=== PATIENT | male | born 1950 | race Caucasian/White ===

== ENCOUNTER → 2016-06-09 | Outpatient (CLI) | payer BC ==
[~2016-06-09] MED LIST: APPLE PECTIN PO; ASPI325T45 PO; COQ10 PO; FISHOIL PO; GRAPE SEED PO; HAWTHORNE PO; HYDR-5688 PO; METF850T PO; METO50TA7 PO; MULT-506 PO; POMEGRANATE PO; SIMV40TA2 PO; VITAMIN C PO
[2016-06-09 10:03] LABS: CHOLESTEROL/HDL RATIO 5.2; ESTIMATED AVERAGE GLUCOSE 140 mg/dl; HA1C FLAG Normal (Normal); PROSTATE SPECIFIC ANTIGEN 0.652 ng/ml (0.000-4.000)
[2016-06-09 10:17] LABS: RATIO 32.4 mcg/mg (0-30.0)
== END | disposition home or self-care (01) ==
LOC: C.LAB 08:28
PROVIDERS: ATTEND Internal Medicine
DX: E78.00 Pure hypercholesterolemia, unspecified (principal); E11.9 Type 2 diabetes mellitus without complications; Z12.5 Encounter for screening for malignant neoplasm of prostate

== ENCOUNTER → 2016-06-11 | Day surgery (SDC) | payer BC ==
[2016-06-03 12:53] VITALS: Ht 193 cm; Wt 122.7 kg
[2016-06-09 09:39] LABS: BASO % 0.5 %; BASO ABS # 0.03 K/uL (0-0.2); COMPLETE YES; EOS % 2.7 %; HEMATOCRIT 39.1 % (42-52); IG% 0.2 %; LYMPH % 32.4 %; LYMPH ABS # 1.95 K/uL (1.2-3.4); MEAN CELL VOLUME 87.1 fL (80-100); MEAN CORPUSCULAR HEMOGLOBIN 29.8 pg (25-34); MEAN CORPUSCULAR HGB CONC 34.3 g/dl (32-36); MEAN PLATELET VOLUME 10.8 fL (7.4-10.4); MONO % 9.2 %; PLATELET COUNT 197 K/uL (130-400); RED BLOOD COUNT 4.49 M/uL (4.7-6.1); WHITE BLOOD COUNT 6.01 K/uL (4.8-10.8)
[2016-06-09 09:51] LABS: BUN/CREATININE RATIO 22.9 (10-20); CREATININE 1.2 mg/dl (0.60-1.40); POTASSIUM 3.7 mmol/L (3.5-5.1)
[~2016-06-11] VITALS: Ht 193 cm; Wt 122.7 kg
[~2016-06-11] MED LIST changes: +ATROPINE SULFATE 0.1 MG/ML 5ML SYR IV PRN; +CEFAZOLIN 3000 MG/65 ML D5W IV SCH; +EpHEDrine SULFATE INJ 50 MG/ML AMP IV PRN; +FENTANYL CITRATE INJ 50 MCG/1 ML 2 ML VIAL IV PRN; +FENTANYL CITRATE INJ 50 MCG/1 ML 2 ML VIAL ONE; +LACTATED RINGER'S 1000ML 1,000 ML IV SCH; +LIDOCAINE HCL 2% 2 ML VIAL (20MG/ML) ONE; +LIDOCAINE HCL 2% LOCAL 20 ML VIAL ONE; +MIDAZOLAM HCL 1 MG/ML 2ML VIAL ONE; +ONDANSETRON INJ 2 MG/ML 2 ML VIAL IV PRN; +ONDANSETRON INJ 2 MG/ML 2 ML VIAL ONE; +OXYCODONE/ACETAMINOPHEN 5-325 TAB PO PRN; +PROPOFOL IV EMULSION 10 MG/ML 20 ML VIAL IV ONE; +SODIUM CHLORIDE 0.9% 1000ML 1,000 ML IV SCH
--- NOTE | 2016-06-11 07:34 | History & Physical Bridge - [place] ---
H&P Re-Evaluation Bridge Note: I have examined the patient, reviewed the History & Physical and in the interval since the performance of the History & Physical I have noted the following changes of clinical significance: No changes noted
[2016-06-11 09:31] VITALS: TEMP 36.6
--- NOTE | 2016-06-11 09:39 | [facility] Post Operative Brief Note ---
Immediate Operative Summary Operative Date Jun 11, 2016. Pre-Operative Diagnosis Left Long Finger Trigger Digit Post-Operative Diagnosis Same Procedure(s) Performed Left Long Trigger Finger Release Surgeon Dr Resendiz Quarry Plug And Feather Driller Surgeon(s) None Estimated Blood Loss Trace Findings as above Specimens None Complication(s) None Disposition Recovery Room / PACU
--- NOTE | 2016-06-11 09:39 | Discharge Instructions-SurgCtr ---
Discharge Instructions Date of Service Jun 11, 2016. Visit Reason for Visit: Left Long Trigger Finger Discharge Discharge Diagnosis / Problem: SAME ABOVE Discharge Goals Goal(s): Decrease discomfort, Improve function Medications Stopped Medications Name(s): gluphage stopped 2 days Aspirin held 2 days Restart Stopped Medication(s): MAY RESTART 06/11/2016 Activity Recommendations Activity Limitations: as noted below Lifting Limitations: gradually increase as tolerated Exercise/Sports Limitations: gradually increase as tolerated Driving or Machine Use: resume 1 day after discharge Anesthesia . Post Anesthesia Instructions: If you have had General Anesthesia or IV Sedation: * Do not drive today. * Resume driving when surgeon permits. * Do not make important decisions or sign legal documents today. * Call surgeon for: 1. Temperature elevations greater than 101 degrees F. 2. Uncontrollable pain. 3. Excessive bleeding. 4. Persistent nausea and vomiting. 5. Medication intolerance (nausea, vomiting or rash). * For nausea and vomiting use only clear liquids such as: tea, soda, bouillon until nausea subsides, then gradually increase diet as tolerated. * If you have any concerns or questions, call your surgeon's office. If physician is unavailable and it is an emergency, call 911 or go to the nearest emergency room. . Instructions / Follow-Up Instructions / Follow-Up MEDICATIONS: * Resume previous medications unless instructed otherwise by your surgeon. * Always take pain medication on a full stomach or with food to avoid upset stomach. * Do not drink alcohol or drive while taking narcotics. * Ibuprofen or Tylenol may be taken if narcotic not needed. SPECIAL CARE INSTRUCTIONS: __ None _X_ Keep extremity elevated and iced x 48 hours; apply ice 20-30 minutes 8-10 times/day. May remove at night. __ Sling __24 hrs/day __ Remove at night __ Shoulder Immobilizer __ 24 hrs/day __ Remove at night _X_ Dressing __ Maintain until seen in office, may shower with plastic over site _X_ Remove dressings in 5 DAYS. MAY SHOWER SOONER IF COVERED WITH PLASTIC BAG __ Cover incisions with band-aids after showering __ Do not remove steri-strips Call physician if chills or temperature rises above 102 degrees or pain unrelieved by prescribed pain medications at . . Diet Recommendations Home Diet: no limitations Fluid Restriction: None Procedures Procedures Performed: Left Long Trigger Finger Release Pending Studies Studies pending at discharge: no Work Instructions Return To Work: after follow-up (OR WHEN PAIN IS TOLERATED ) Lifting Limitations: INCREASE TOLERATED Medical Emergencies . Who to Call and When: Medical Emergencies: If at any time you feel your situation is an emergency, please call 911 immediately. . Non-Emergent Contact Non-Emergency issues call your: Primary Care Provider Call Non-Emergent contact if: you have a fever, temperature is above 101.5 . . "Provider Documentation" section prepared by Cyrus Perdomo.
--- NOTE | 2016-06-11 09:44 | OPERATIVE REPORT ---
DATE OF OPERATION: 06/11/2016 CHIEF COMPLAINT: Trigger finger of the left middle finger. POSTOPERATIVE DIAGNOSIS: Same. PROCEDURE: Open trigger finger release of the left middle finger. SURGEON: Dr. Joey Resendiz. VENDING MACHINE REFILLER: None. ANESTHESIA: Local with sedation. COMPLICATION: None. CONDITION: Stable to PACU. INDICATIONS: Son is a pleasant 65-year-old male who presented to my office with triggering of his left middle finger. After failing conservative treatment, he elected to undergo open trigger finger release. On 06/11/2016, he arrived at [facility] for the above procedure. He was seen in the preoperative holding area and the operative extremity was identified and signed. He was given a preoperative antibiotic, taken back to the operating room, laid on the table in supine position and given basic sedation. The left hand was prepped and draped in sterile fashion. Timeout was done. The patient and operative extremity was properly identified. A longitudinal incision was made directly over the A1 shirley. Dissection was taken down through the fascia and the shirley was released with a knife and tenotomy scissors. Care was taken to ensure complete proximal and distal resection. The wound was then irrigated and closed with 4-0 nylon suture. He was then placed in a soft dressing and taken to the postanesthesia care unit in stable condition. He tolerated the procedure well. I attest to the content of the Intraoperative Record and any orders documented therein. Any exceptio ns are noted below.
--- NOTE | 2016-06-11 09:57 | Anesthesia Progress Nt - [facility] ---
Anesthesia Post Op Note Date & Time Jun 11, 2016 at 09:57 Vital Signs Pain Intensity: 0 Vital Signs Past 12 Hours Date Time Temp Pulse Resp B/P Pulse Ox O2 Delivery O2 Flow Rate FiO2 06/11/16 09:31 36.6 65 16 162/79 96 Room Air 06/11/16 07:47 36.7 62 16 162/78 97 Room Air Notes Mental Status: alert / awake / arousable, participated in evaluation Pt Amnestic to Procedure: Yes Nausea / Vomiting: adequately controlled Pain: adequately controlled Airway Patency, RR, SpO2: stable & adequate BP & HR: stable & adequate Hydration State: stable & adequate Anesthetic Complications: no major complications apparent
[2016-06-11 10:15] VITALS: BP 188/94; PULSE 78; O2SAT 98
== END | disposition home or self-care (01) ==
LOC: X.SURG 07:16
PROVIDERS: ATTEND Orthopaedic Surgery
DX: M65.332 Trigger finger, left middle finger (principal); M79.642 Pain in left hand; I51.9 Heart disease, unspecified; I10 Essential (primary) hypertension; R73.03 Prediabetes

== ENCOUNTER 2025-02-15 21:47 | Inpatient (IN) ==
[2025-02-15 22:08] LABS: Hematocrit (blood only) 34.2 % (42.0-52.0); Hemoglobin 11.7 g/dL (14.0-18.0); Immature Granulocytes # (auto) 0.03 K/uL (0.01-0.20); Immature Granulocytes % (auto) 0.4 %; Mean Corpuscular Hemoglobin 30.6 pg (25.0-34.0); Mean Corpuscular Volume 89.5 fL (80.0-100.0); Platelet Count 203 K/uL (130-400); RDW Standard Deviation 46.6 fL (36.4-46.3); Red Blood Count 3.82 M/uL (4.70-6.10); White Blood Count 8.49 K/ul (4.8-10.8)
[2025-02-15 22:27] LABS: Alanine Aminotransferase 16 U/L (7-52); Albumin Globulin Ratio 1.2 (0.9-2); Albumin Level 4.2 gm/dl (3.4-5.0); Alkaline Phosphatase 76 U/L (34-104); Anion Gap 13 (3-11); Bilirubin,Total 0.9 mg/dl (0.2-1.0); Blood Urea Nitrogen 27 mg/dl (6-23); Calcium 9.7 mg/dl (8.6-10.3); Carbon Dioxide 19 mmol/L (21-32); Chloride 106 mmol/L (98-107); Globulin 3.4 gm/dl (2.5-4.0); Glucose 209 mg/dl (70-99(Fasting)); Lipase 23 U/L (11-82); Potassium 4.3 mmol/L (3.5-5.1); Sodium 138 mmol/L (136-145); Total Protein 7.6 gm/dl (6.0-8.3)
[2025-02-15 22:30] LABS: Appearance Urine Clear (Clear); Bacteria Urine Automated None Seen (None Seen); Cast Urine Automated >20 /lpf (0-2); Glucose Urine UA Negative (Negative); RBC Urine Automated 0-2 /hpf (0-2); WBC Urine Automated 0-5 /hpf (0-5)
[2025-02-15] MEDS: OPTIRAY 320 125ml IV ONE (22:45)
[2025-02-15] MEDS: SODIUM CHLORIDE 0.9% 1,000 ML IV ONE (22:47)
[2025-02-15] MEDS: PIPERACILLIN/TAZOBACTAM 4.5 GM/100 ML BAG IV ONE (23:25)
--- NOTE | 2025-02-15 23:28 | Emergency Department Note ---
History of Present Illness General Chief complaint: Abdominal Pain Stated complaint: SEVERE ABD PAIN History of Present Illness Maximum Pain Intensity: 8 This 74-year-old male with a history of diabetes and prostate cancer not undergoing current treatment presents ER complaint of severe lower abdominal pain with chills. Pain started at 7 PM and is gotten much worse. Patient is shivering in the room and appears in moderate amount of pain. Patient also complains of difficulty catching his breath secondary to the pain. Patient denies back pain, injury to the area, cough, congestion, urinary symptoms. Home Medications Medication Instructions Recorded Confirmed Type ascorbic acid (vitamin C) 500 mg 500 mg PO QAM 02/21/18 02/16/25 History tablet (Vitamin C) coQ10 (ubiquinol) 100 mg capsule 100 mg PO QAM 02/21/18 02/16/25 History multivitamin 1 tab PO QAM 02/21/18 02/16/25 History amoxicillin 500 mg capsule 2,000 mg (4 x 500 mg) PO UD #4 caps 02/12/20 02/16/25 Rx nitroglycerin 400 mcg/spray 1 spray sublingual Q5M PRN chest 01/02/22 02/16/25 Rx translingual pain #4.9 grams aspirin 81 mg capsule 162 mg PO DAILY 11/02/23 02/16/25 History celecoxib 200 mg capsule (Celebrex) 200 mg PO DAILY PRN pain #30 caps 06/20/24 02/16/25 Rx vitamin E (dl, acetate) 180 mg 180 mg PO DAILY 07/24/24 02/16/25 History (400 unit) capsule rosuvastatin 10 mg tablet 10 mg PO DAILY #90 tabs 08/21/24 02/16/25 Rx amlodipine 5 mg tablet 5 mg PO DAILY #90 tabs 08/22/24 02/16/25 Rx olmesartan 40 mg tablet 40 mg PO DAILY #90 tabs 09/22/24 02/16/25 Rx fenofibrate 54 mg tablet 54 mg PO QAM 10/18/24 02/16/25 History ferrous sulfate 325 mg (65 mg 325 mg PO DAILY 10/18/24 02/16/25 History iron) tablet metformin 850 mg tablet 850 mg PO QPM #90 tabs 11/15/24 02/16/25 Rx metoprolol tartrate 50 mg tablet 50 mg PO BID #180 tabs 11/15/24 02/16/25 Rx hydrochlorothiazide 12.5 mg tablet 12.5 mg PO DAILY PRN as directed 11/29/24 02/16/25 History Allergies Allergy/AdvReac Type Severity Reaction Status Date / Time pollen extracts Allergy Unknown ALLERGY Verified 12/26/24 15:44 SYMPTOMS No Known Drug Allergies Allergy Verified 12/26/24 15:44 Past Med/Surg History Problem List (Updated 02/16/25 @ 01:41 by Sandy Richardson PA-C) Acute appendicitis (Acute) Anemia Medication adverse effect Adrenal nodule Lung nodules Prostate cancer (Chronic 04/24/24) Anemia, mild 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, 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 Lumbar spinal stenosis Myalgia History of colon polyps Obesity (BMI 30.0-34.9) Skin change Chronic constipation Acid reflux (Acute) CAD (coronary artery disease) (Acute) F/U DR GIGI PERKINS Diabetes mellitus (Acute) Dyslipidemia (Acute) Generalized osteoarthritis of multiple sites (Acute) Hypertension (Acute) Legg-Perthes disease (Acute) Lower back pain (Acute) Sleep apnea (Acute) USES NO DEVICE Tubular adenoma (Acute) Medical History Elevated PSA Encounter for pre-operative examination GERD (gastroesophageal reflux disease) Allergic rhinitis History of colon polyps Osteoarthritis Borderline diabetes mellitus Hypertension Hyperlipidemia Surgical History History of tonsillectomy and adenoidectomy S/P trigger finger release R/L HAND History of total hip arthroplasty LEFT History of colonoscopy X 2 History of cardiac cath 10 years ago. [facility]. cp. --> [facility]. follows verónica/ dr. perkins. History of coronary artery bypass graft 3 vessels. 10 years ago. [facility]. follows verónica/ dr. perkins Family History Mother Family history of diabetes mellitus Myocardial infarction Brother Family history of diabetes mellitus Denies family history of Ovarian cancer Prostate cancer Breast cancer Colorectal cancer Social History Smoking Status: Never smoker Second Hand Exposure: No; Do You Dip or Chew Tobacco: No; Hx Alcohol Use: Yes Alcohol type: wine Alcohol Intake Frequency: Monthly or Less Hx Substance Use: No Preferred Language: Serbian Communication Ability: Effective Visual Impairment: Diminished Hearing Ability: Hard of Hearing Customer Service Agent Required: No Beliefs That Will Affect Care: None marital status: Current Living Situation: Spouse current occupational status: employed 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 Feels Safe at Home: Yes Diet: regular during the past year weight has: remained stable Dental Care, Regularly: Yes Physical Activity Frequency Comment: yardwork and very active Seatbelt Use: always Sunscreen Use: No Assistive Devices: Glasses Review of Systems A total of 10 systems reviewed and were otherwise negative Physical Exam Vital Signs Vital Signs - 24 hr 02/15/25 21:48 02/15/25 21:50 02/15/25 22:08 Temperature 36.9 C Temperature Source Oral Pulse Rate 96 H 108 H Pulse Rate from SpO2 Sensor Respiratory Rate 18 Respiratory Effort / Characteristics Non-Labored Spontaneous Respiratory Depth Normal Respiratory Pattern Regular Blood Pressure 146/76 H Blood Pressure Mean 99 Pulse Oximetry 97 Oxygen Delivery Method Room Air Room Air Sepsis Recent Fever Within 48 Hours No Sepsis New/Unexplained Change in Mental Status N/A Sepsis Action Taken by Nursing No Action Required 02/15/25 22:08 02/15/25 22:08 02/15/25 22:08 Temperature Temperature Source Pulse Rate Pulse Rate from SpO2 Sensor Respiratory Rate Respiratory Effort / Characteristics Respiratory Depth Respiratory Pattern Blood Pressure 199/96 H 199/96 H 199/96 H Blood Pressure Mean 147 147 147 Pulse Oximetry Oxygen Delivery Method Sepsis Recent Fever Within 48 Hours Sepsis New/Unexplained Change in Mental Status Sepsis Action Taken by Nursing 02/15/25 22:08 02/15/25 22:09 02/15/25 22:12 Temperature Temperature Source Pulse Rate 109 H 116 H Pulse Rate from SpO2 Sensor Respiratory Rate 31 H 43 H Respiratory Effort / Characteristics Respiratory Depth Respiratory Pattern Blood Pressure 199/96 H Blood Pressure Mean 147 Pulse Oximetry Oxygen Delivery Method Sepsis Recent Fever Within 48 Hours Sepsis New/Unexplained Change in Mental Status Sepsis Action Taken by Nursing 02/15/25 22:21 02/15/25 22:45 02/15/25 22:46 Temperature Temperature Source Pulse Rate 128 H 108 H Pulse Rate from SpO2 Sensor 127 H 110 H Respiratory Rate 35 H 35 H Respiratory Effort / Characteristics Respiratory Depth Respiratory Pattern Blood Pressure 194/83 H Blood Pressure Mean 168 Pulse Oximetry 100 96 Oxygen Delivery Method Sepsis Recent Fever Within 48 Hours Sepsis New/Unexplained Change in Mental Status Sepsis Action Taken by Nursing 02/15/25 22:46 02/15/25 22:46 02/15/25 22:46 Temperature Temperature Source Pulse Rate Pulse Rate from SpO2 Sensor Respiratory Rate Respiratory Effort / Characteristics Respiratory Depth Respiratory Pattern Blood Pressure 194/83 H 194/83 H 194/83 H Blood Pressure Mean 168 168 168 Pulse Oximetry Oxygen Delivery Method Sepsis Recent Fever Within 48 Hours Sepsis New/Unexplained Change in Mental Status Sepsis Action Taken by Nursing 02/15/25 22:46 02/15/25 22:48 02/15/25 22:51 Temperature Temperature Source Pulse Rate 98 H 109 H Pulse Rate from SpO2 Sensor 109 H 108 H Respiratory Rate 36 H 33 H Respiratory Effort / Characteristics Respiratory Depth Respiratory Pattern Blood Pressure 194/83 H Blood Pressure Mean 168 Pulse Oximetry 97 96 Oxygen Delivery Method Sepsis Recent Fever Within 48 Hours Sepsis New/Unexplained Change in Mental Status Sepsis Action Taken by Nursing 02/15/25 23:00 02/15/25 23:00 02/15/25 23:00 Temperature Temperature Source Pulse Rate Pulse Rate from SpO2 Sensor Respiratory Rate Respiratory Effort / Characteristics Respiratory Depth Respiratory Pattern Blood Pressure 198/91 H 198/91 H 198/91 H Blood Pressure Mean 166 166 166 Pulse Oximetry Oxygen Delivery Method Sepsis Recent Fever Within 48 Hours Sepsis New/Unexplained Change in Mental Status Sepsis Action Taken by Nursing 02/15/25 23:00 02/15/25 23:00 02/15/25 23:00 Temperature Temperature Source Pulse Rate 110 H Pulse Rate from SpO2 Sensor 110 H Respiratory Rate 25 H Respiratory Effort / Characteristics Respiratory Depth Respiratory Pattern Blood Pressure 198/91 H 198/91 H Blood Pressure Mean 166 166 Pulse Oximetry 96 Oxygen Delivery Method Sepsis Recent Fever Within 48 Hours Sepsis New/Unexplained Change in Mental Status Sepsis Action Taken by Nursing 02/15/25 23:12 02/15/25 23:24 02/15/25 23:30 Temperature Temperature Source Pulse Rate 107 H 104 H 110 H Pulse Rate from SpO2 Sensor 108 H Respiratory Rate 12 24 Respiratory Effort / Characteristics Respiratory Depth Respiratory Pattern Blood Pressure Blood Pressure Mean Pulse Oximetry 95 Oxygen Delivery Method Sepsis Recent Fever Within 48 Hours Sepsis New/Unexplained Change in Mental Status Sepsis Action Taken by Nursing 02/15/25 23:42 Temperature Temperature Source Pulse Rate 97 H Pulse Rate from SpO2 Sensor Respiratory Rate 28 H Respiratory Effort / Characteristics Respiratory Depth Respiratory Pattern Blood Pressure Blood Pressure Mean Pulse Oximetry Oxygen Delivery Method Sepsis Recent Fever Within 48 Hours Sepsis New/Unexplained Change in Mental Status Sepsis Action Taken by Nursing VITALS: Vitals are noted on the nurse's note and reviewed by myself. Vital signs reviewed. GENERAL: White male, in acute distress, shivering SKIN: The skin was without rashes, erythema, edema, or bruising. There is no tenting of the skin. Capillary reflex less than 2 seconds. HEAD: Normocephalic atraumatic. EARS: External auditory canals clear EYES: Pupils equal round and reactive to light and accommodation. Conjunctivae without injection, sclerae without icterus. Extraocular movements intact. NOSE: Patent, no discharge. MOUTH: Mucous membranes moist. Pharynx without erythema or exudate. Uvula midline. Airway patent. Tongue does not deviate. NECK: Supple without nuchal rigidity. No lymphadenopathy. No thyromegaly. Cervical spine is nontender. No JVD. HEART: Regular rate and rhythm LUNGS: Clear to auscultation bilaterally without wheezes, rales or rhonchi. No retractions or accessory muscle use. ABDOMEN: Positive bowel sounds x 4. Normal tympanic percussion. Soft, exquisitely tender to palpation with rebound tenderness, without masses or organomegaly. Wren sign negative. No CVA tenderness MUSCULOSKELETAL: No muscle atrophy, erythema, or edema noted. NEURO: Patient was alert and oriented to person place and time. Normal sensation to light and sharp touch. No focal neurological deficits. Course Administered Medications Hydromorphone HCl (Hydromorphone Inj 0.5 Mg/0.5 Ml Syr) 0.5 mg IV Q3H PRN PRN Reason: Severe Pain (Scale 7, 8, 9,10) Stop: 03/02/25 00:44 Last Admin: 02/16/25 01:10 Dose: 0.5 mg Documented By: LENNY Co-signed By: CRISELDA Magnesium Sulfate/Dextrose (Magnesium Sulfate / D5w) 1 gm in 100 mls @ 50 mls/hr IV ONE STA Stop: 02/16/25 02:41 Last Admin: 02/16/25 01:11 Dose: 50 mls/hr Documented By: LENNY Co-signed By: CRISELDA Lactated Ringer's (Lr) 1,000 mls @ 80 mls/hr IV .[id number] JOE Stop: 02/19/25 00:44 Last Admin: 02/16/25 01:11 Dose: 80 mls/hr Documented By: LENNY Co-signed By: CRISELDA Discontinued Medications Piperacillin Sod/Tazobactam Sod (Zosyn) 4.5 gm in 100 mls @ 200 mls/hr IV NOW ONE; Protocol Stop: 02/15/25 22:47 Last Infusion: 02/16/25 00:00 Dose: Infused Documented By: Admin: 02/15/25 23:25 Dose: 200 mls/hr Documented By: CRISELDA Sodium Chloride (Nss) 1,000 mls @ 999 mls/hr IV .Q1H1M ONE Stop: 02/15/25 23:18 Last Infusion: 02/16/25 01:35 Dose: Infused Documented By: Admin: 02/15/25 22:47 Dose: 999 mls/hr Documented By: CRISELDA Acetaminophen (Ofirmev) 1,000 mg in 100 mls @ 400 mls/hr IV NOW STA Stop: 02/15/25 23:38 Last Infusion: 02/16/25 00:00 Dose: Infused Documented By: Admin: 02/15/25 23:29 Dose: 400 mls/hr Documented By: CRISELDA Pantoprazole Sodium (Protonix) 40 mg in 10 mls @ 5 mls/min IV NOW STA Stop: 02/16/25 00:53 Last Admin: 02/16/25 01:10 Dose: 5 mls/min Documented By: LENNY Co-signed By: CRISELDA Ioversol (Optiray 320 125ml) 115 ml IV ONCE ONE Stop: 02/15/25 22:45 Last Admin: 02/15/25 22:45 Dose: 115 ml Documented By: SHAGGY Miscellaneous (Patient's Height &/Or Weight Needed) 1 each N/A Q2H STA Stop: 02/16/25 00:54 Last Admin: 02/16/25 01:19 Dose: Not Given Documented By: CRISELDA Morphine Sulfate (Morphine Sulfate 4 Mg/Ml 1 Ml Carp\Vial) 4 mg IV NOW STA Stop: 02/15/25 23:25 Last Admin: 02/15/25 23:29 Dose: 4 mg Documented By: CRISELDA Medical Decision Making Medical Records Attestation: I reviewed the patient's medical records. Home Medications Current Medication List: was personally reviewed by me Laboratory Data Attestation: I reviewed the patient's lab results. 02/15/25 21:55 02/15/25 21:55 Lab Results 02/15/25 02/15/25 02/15/25 Range/Units 21:55 22:00 22:24 WBC 8.49 (4.8-10.8) K/ul RBC 3.82 L (4.70-6.10) M/uL Hgb 11.7 L (14.0-18.0) g/dL POC Hgb 11.9 L (14.0-18.0) g/dl Hct 34.2 L (42.0-52.0) % POC Hct 35 L (42-52) % MCV 89.5 (80.0-100.0) fL MCH 30.6 (25.0-34.0) pg MCHC 34.2 (32.0-36.0) g/dL RDW Std Deviation 46.6 H (36.4-46.3) fL RDW Coeff of Elsy 14.3 (11.5-14.5) % Plt Count 203 (130-400) K/uL MPV 10.2 (9.4-12.4) fL Immature Gran % (Auto) 0.4 % Neut % (Auto) 88.1 % Lymph % (Auto) 4.2 % Dent % (Auto) 6.8 % Eos % (Auto) 0.4 % Baso % (Auto) 0.1 % Neut # (Auto) 7.48 H (1.40-6.50) K/uL Lymph # (Auto) 0.36 L (1.20-3.40) K/uL Dent # (Auto) 0.58 (0.11-0.59) K/uL Eos # (Auto) 0.03 (0.00-0.50) K/uL Baso # (Auto) 0.01 (0.00-0.20) K/uL Immature Gran # (Auto) 0.03 (0.01-0.20) K/uL POC Sodium 140 (135-144) mmol/L Sodium 138 (136-145) mmol/L POC Potassium 4.5 (3.3-5.0) mmol/L Potassium 4.3 (3.5-5.1) mmol/L POC Chloride 109 (101-112) mmol/L Chloride 106 (98-107) mmol/L Carbon Dioxide 19 L (21-32) mmol/L POC Total CO2 17 L (24-31) mmol/L Anion Gap 13 H (3-11) POC Anion Gap 20.0 (16-25) mmol/L POC BUN 27 H (7-18) mg/dl BUN 27 H (6-23) mg/dl Creatinine 1.45 H (0.6-1.4) mg/dl POC Creatinine 1.7 H (0.6-1.3) mg/dl Est Cr Clr Drug Dosing Not Reportable eGFR 49.94 BUN/Creatinine Ratio 18.6 (10-20) Glucose 209 H (70-99(Fasting)) mg/dl POC Glucose (other) 229 H (70-99) mg/dl Lactate (0.4-2.0) mmol/L Calcium 9.7 (8.6-10.3) mg/dl POC Ioniz Calcium Flavio 1.22 (1.12-1.32) mmol/l Magnesium 1.8 (1.7-2.4) mg/dl Total Bilirubin 0.9 (0.2-1.0) mg/dl AST 16 (13-39) U/L ALT 16 (7-52) U/L Alkaline Phosphatase 76 (34-104) U/L Total Protein 7.6 (6.0-8.3) gm/dl Albumin 4.2 (3.4-5.0) gm/dl Globulin 3.4 (2.5-4.0) gm/dl Albumin/Globulin Ratio 1.2 (0.9-2) Lipase 23 (11-82) U/L Urine Color Dark Yellow Urine Appearance Clear (Clear) Urine pH 5.0 (4.5-7.5) Ur Specific [place] 1.026 (1.000-1.030) Urine Protein 2+ H (Negative) Urine Glucose (UA) Negative (Negative) Urine Ketones 1+ H (Negative) Urine Blood Negative (Negative) Urine Nitrite Negative (Negative) Urine Bilirubin 1+ H (Negative) Urine Urobilinogen Negative (Negative) Ur Leukocyte Esterase Trace H (Negative) Urine WBC (Auto) 0-5 (0-5) /hpf Urine RBC (Auto) 0-2 (0-2) /hpf U Hyaline Cast (Auto) >20 H (0-2) /lpf U Epithel Cells (Auto) 3-5 H (0-2) /hpf Urine Bacteria (Auto) None Seen (None Seen) Hyaline Casts Present A (None Presnt) /lpf Urine Mucus Present A (None Prsent) Urine Comment 02/15/25 Range/Units 23:05 WBC (4.8-10.8) K/ul RBC (4.70-6.10) M/uL Hgb (14.0-18.0) g/dL POC Hgb (14.0-18.0) g/dl Hct (42.0-52.0) % POC Hct (42-52) % MCV (80.0-100.0) fL MCH (25.0-34.0) pg MCHC (32.0-36.0) g/dL RDW Std Deviation (36.4-46.3) fL RDW Coeff of Elsy (11.5-14.5) % Plt Count (130-400) K/uL MPV (9.4-12.4) fL Immature Gran % (Auto) % Neut % (Auto) % Lymph % (Auto) % Dent % (Auto) % Eos % (Auto) % Baso % (Auto) % Neut # (Auto) (1.40-6.50) K/uL Lymph # (Auto) (1.20-3.40) K/uL Dent # (Auto) (0.11-0.59) K/uL Eos # (Auto) (0.00-0.50) K/uL Baso # (Auto) (0.00-0.20) K/uL Immature Gran # (Auto) (0.01-0.20) K/uL POC Sodium (135-144) mmol/L Sodium (136-145) mmol/L POC Potassium (3.3-5.0) mmol/L Potassium (3.5-5.1) mmol/L POC Chloride (101-112) mmol/L Chloride (98-107) mmol/L Carbon Dioxide (21-32) mmol/L POC Total CO2 (24-31) mmol/L Anion Gap (3-11) POC Anion Gap (16-25) mmol/L POC BUN (7-18) mg/dl BUN (6-23) mg/dl Creatinine (0.6-1.4) mg/dl POC Creatinine (0.6-1.3) mg/dl Est Cr Clr Drug Dosing eGFR BUN/Creatinine Ratio (10-20) Glucose (70-99(Fasting)) mg/dl POC Glucose (other) (70-99) mg/dl Lactate 4.4 H* (0.4-2.0) mmol/L Calcium (8.6-10.3) mg/dl POC Ioniz Calcium Flavio (1.12-1.32) mmol/l Magnesium (1.7-2.4) mg/dl Total Bilirubin (0.2-1.0) mg/dl AST (13-39) U/L ALT (7-52) U/L Alkaline Phosphatase (34-104) U/L Total Protein (6.0-8.3) gm/dl Albumin (3.4-5.0) gm/dl Globulin (2.5-4.0) gm/dl Albumin/Globulin Ratio (0.9-2) Lipase (11-82) U/L Urine Color Urine Appearance (Clear) Urine pH (4.5-7.5) Ur Specific [place] (1.000-1.030) Urine Protein (Negative) Urine Glucose (UA) (Negative) Urine Ketones (Negative) Urine Blood (Negative) Urine Nitrite (Negative) Urine Bilirubin (Negative) Urine Urobilinogen (Negative) Ur Leukocyte Esterase (Negative) Urine WBC (Auto) (0-5) /hpf Urine RBC (Auto) (0-2) /hpf U Hyaline Cast (Auto) (0-2) /lpf U Epithel Cells (Auto) (0-2) /hpf Urine Bacteria (Auto) (None Seen) Hyaline Casts (None Presnt) /lpf Urine Mucus (None Prsent) Urine Comment Imaging Data Attestation: I personally reviewed and interpreted this imaging study as follows: Radiologist's Impression: Chest CTA 02/15/25 22:18 Exam(s): CTA CHEST EXAM: CT Angiography Chest With Intravenous Contrast CLINICAL HISTORY: Reason for exam: PE. TECHNIQUE: Axial computed tomographic angiography images of the chest with intravenous contrast. CTDI is 22.8 mGy and DLP is 1636.59 mGy-cm. Automated exposure control was utilized for the study. A dose lowering technique was utilized adhering to the principles of ALARA. MIP reconstructed images were created and reviewed. IV contrast is given with moderate pulmonary arterial enhancement, and severe breathing motion artifact, significantly limiting evaluation for small or nonocclusive disease. COMPARISON: None. FINDINGS: Pulmonary arteries: No definite pulmonary embolism. Limited evaluation due to technique. Aorta: No aneurysm. Lungs: Grossly clear. No consolidation. Pleural space: No significant effusion. No pneumothorax. Heart: Moderate cardiomegaly. No significant pericardial effusion. No evidence of elevated right heart pressures. Bones/joints: No acute fracture. Soft tissues: Small hiatal hernia. Bilateral adrenal nodules, see separately dictated CTA abdomen pelvis. Lymph nodes: No enlarged lymph nodes. IMPRESSION: 1. No definite pulmonary embolism. Limited evaluation due to technique. 2. Lungs are grossly clear. Electronically signed by: Salima Valentin M.D. 02/15/25 23:43 PM Abdomen/Pelvis CTA 02/15/25 22:30 CR Exam(s): CTA ABDOMEN + PELVIS With Contrast IV Amt: 115 ML OPTIRAY 320 EXAM: CT Angiography Abdomen and Pelvis With Intravenous Contrast CLINICAL HISTORY: Reason for exam: severe pain. TECHNIQUE: Axial computed tomographic angiography images of the abdomen and pelvis with intravenous contrast. CTDI is 22.8 mGy and DLP is 1636.59 mGy-cm. Automated exposure control was utilized for the study. A dose lowering technique was utilized adhering to the principles of ALARA. MIP reconstructed images were created and reviewed. There is metal artifact from left hip prosthesis, and mild to moderate artifact from breathing/motion. CONTRAST: Patient received 115 ML OPTIRAY 320 of IV contrast COMPARISON: None. FINDINGS: VASCULATURE: Aorta: Moderate atherosclerosis. No aneurysm or dissection. Celiac trunk and mesenteric arteries: No significant stenosis or occlusion. Renal arteries: No significant stenosis or occlusion. Iliac arteries: Severe atherosclerosis. No significant stenosis or occlusion of the common/external iliac vessels. ABDOMEN/PELVIS: Lower chest: Small hiatal hernia. Liver: Unremarkable. Gallbladder and bile ducts: No ductal dilation. Pancreas: No ductal dilation. Spleen: Unremarkable, for technique. Adrenals: 2.8 cm right adrenal and 14 mm left adrenal nodules. Kidneys and ureters: Moderate to severe bilateral cortical atrophy. No hydronephrosis. Stomach and bowel: No obstruction. Moderate inflammation right lower quadrant, surrounding an enlarged appendix that measures 11 mm, with appendicoliths Intraperitoneal space: No abscess, free air or fluid. Bones/joints: Left hip prosthesis. No acute fracture. Soft tissues: Bilateral fat containing inguinal hernias. Lymph nodes: No enlarged lymph nodes. Bladder: Unremarkable. Reproductive: Unremarkable as visualized. IMPRESSION: 1. Acute, uncomplicated appendicitis. 2. No aortic aneurysm, dissection, branch vessel occlusion or acute end organ ischemia. Communications: Call Doctor Appendicitis Electronically signed by: Salima Valentin M.D. 02/15/25 23:41 PM [facility] Narrative Prior records/ancillary studies reviewed. Triage Nursing notes reviewed. Additional history obtained from family. The patient's history was concerning for abdominal pain. Differential diagnosis: Etiologies such as perforation, dissection, appendicitis, diverticulitis, PUD, biliary pathology, UTI, pancreatitis, obstruction, mesenteric ischemia, aortic pathology, infections, inflammatory bowel disease, renal colic, as well as others were entertained. Physical examination findings: As above. ER treatment provided: An order was placed for continuous cardiac monitoring. The monitor shows a rate of 60-100 with a sinus rhythm per my Independent interpretation. Limited Point of Care FAST Ultrasound performed by me: Indication: Rule out perforation/dissection Findings: Limited cardiac ultrasonography via subxiphoid and parasternal long view showed cardiac wall motion activity, no pericardial fluid, no tamponade. Limited chest ultrasound revealed bilateral lung sliding. Limited abdominal ultrasound revealed no free fluid within Chapman's pouch, splenorenal space, or the pouch of Marshal. Impression: Negative FAST exam. IV fluids, Zosyn, morphine and Tylenol ordered Septic workup was initiated On reassessment the patient felt better. Diagnostics interpreted by me: ECG: Ordered for dyspnea EKG: Poor baseline, occasional PVC, no acute ST-T wave changes, rate of 103. Patient sinus tachycardia independently interpreted by myself The labs Independently Interpreted by myself revealed no worrisome leukocytosis, negative urine, mild anemia Elevated lactic. Imaging studies: Imaging was reviewed and read by radiology Consultation: A consultation was placed with the hospitalist. The case was discussed and diagnostics were reviewed. The patient was evaluated in the ER for further treatment. Consultation was placed with surgery, Dr. Caballero, via [facility] text and recommends medical admission and antibiotics. Consultation was placed with radiology at stat read. The CT was reviewed and she believes it is an acute appendicitis. Exam and history seem consistent with acute appendicitis. Patient started on broad-spectrum antibiotics as he does have an acute abdomen on exam and was febrile.Patient developed a fever while in the ER and was given Tylenol. Septic workup was already initiated. Radiology was consulted and the CAT scans were reviewed with the radiologist. She believes it is an acute appendicitis. No perforation. Surgery was consulted and recommends medical admission. Medicine was consulted and will admit the patient. Patient is agreeable treatment plan of admission. Patient was reassessed multiple times. He was medicated as above. My attending was made aware of him. By the evaluation outlined above emergent etiologies such as diverticulitis, PUD, biliary pathology, UTI, pancreatitis, obstruction, mesenteric ischemia, aortic pathology, inflammatory bowel disease, renal colic, as well as others were deemed relatively unlikely. The pt informed about the findings as listed above. All questions were answered and pleased with the treatment. The chart was completed utilizing [employer] Speech voice recognition software. Grammatical errors, random word insertions, pronoun errors, and incomplete sentences are an occassional consequence of this system due to software limitations, ambient noise, and hardware issues. Any formal questions or concerns about the content, text, or information contained within the body of this dictation should be directly addressed to the physician bilingual legal assistant for clarification. Impression & Plan Acute appendicitis Discharge Plan Visit Data Chief Complaint: Abdominal Pain Stated Complaint: SEVERE ABD PAIN ED Provider: Zackary Pineda ED Midlevel Provider: Sandy Richardson Discharge Problem: Acute appendicitis Patient Disposition: Admitted As Inpatient Condition: Fair Forms Stand Alone Forms: My [facility] Prescriptions Prescriptions: No Action hydrochlorothiazide 12.5 mg tablet 12.5 mg PO DAILY PRN (Reason: as directed) vitamin E (dl, acetate) 180 mg (400 unit) capsule 180 mg PO DAILY ferrous sulfate 325 mg (65 mg iron) tablet 325 mg PO DAILY fenofibrate 54 mg tablet 54 mg PO QAM amoxicillin 500 mg capsule 2,000 mg PO UD Qty: 4 2RF Rx Instructions: TAKE 4 TABLETS 1 HOUR BEFORE DENTAL APPOINTMENT nitroglycerin 400 mcg/spray spray,non-aerosol 1 spray sublingual Q5M PRN (Reason: chest pain) Qty: 4.9 3RF Rx Instructions: do not exceed 3 doses per episode celecoxib [Celebrex] 200 mg capsule 200 mg PO DAILY PRN (Reason: pain) Qty: 30 2RF rosuvastatin 10 mg tablet 10 mg PO DAILY Qty: 90 3RF metoprolol tartrate 50 mg tablet 50 mg PO BID Qty: 180 3RF metformin 850 mg tablet 850 mg PO QPM Qty: 90 3RF aspirin 81 mg capsule 162 mg PO DAILY amlodipine 5 mg tablet 5 mg PO DAILY Qty: 90 3RF olmesartan 40 mg tablet 40 mg PO DAILY Qty: 90 3RF multivitamin Tablet 1 tab PO QAM ascorbic acid (vitamin C) [Vitamin C] 500 mg Tablet 500 mg PO QAM coQ10 (ubiquinol) 100 mg Capsule 100 mg PO QAM Referrals Referrals: Varghese Ley MD [Primary Care Provider] - Discharge Problem: Acute appendicitis Qualifiers: Acute appendicitis type: unspecified acute appendicitis type Qualified Code(s): K35.80 - Unspecified acute appendicitis
[2025-02-15] MEDS: ACETAMINOPHEN 1,000 MG/100 ML VIAL IV STA (23:29)
[2025-02-15] MEDS: MoRPHine SULFATE 4 MG/ML 1 ML CARP\\VIAL IV STA (23:29)
--- NOTE | 2025-02-15 23:42 | CT Scan Report ---
Exam(s): CTA ABDOMEN + PELVIS With Contrast IV Amt: 115 ML OPTIRAY 320 EXAM: CT Angiography Abdomen and Pelvis With Intravenous Contrast CLINICAL HISTORY: Reason for exam: severe pain. TECHNIQUE: Axial computed tomographic angiography images of the abdomen and pelvis with intravenous contrast. CTDI is 22.8 mGy and DLP is 1636.59 mGy-cm. Automated exposure control was utilized for the study. A dose lowering technique was utilized adhering to the principles of ALARA. MIP reconstructed images were created and reviewed. There is metal artifact from left hip prosthesis, and mild to moderate artifact from breathing/motion. CONTRAST: Patient received 115 ML OPTIRAY 320 of IV contrast COMPARISON: None. FINDINGS: VASCULATURE: Aorta: Moderate atherosclerosis. No aneurysm or dissection. Celiac trunk and mesenteric arteries: No significant stenosis or occlusion. Renal arteries: No significant stenosis or occlusion. Iliac arteries: Severe atherosclerosis. No significant stenosis or occlusion of the common/external iliac vessels. ABDOMEN/PELVIS: Lower chest: Small hiatal hernia. Liver: Unremarkable. Gallbladder and bile ducts: No ductal dilation. Pancreas: No ductal dilation. Spleen: Unremarkable, for technique. Adrenals: 2.8 cm right adrenal and 14 mm left adrenal nodules. Kidneys and ureters: Moderate to severe bilateral cortical atrophy. No hydronephrosis. Stomach and bowel: No obstruction. Moderate inflammation right lower quadrant, surrounding an enlarged appendix that measures 11 mm, with appendicoliths Intraperitoneal space: No abscess, free air or fluid. Bones/joints: Left hip prosthesis. No acute fracture. Soft tissues: Bilateral fat containing inguinal hernias. Lymph nodes: No enlarged lymph nodes. Bladder: Unremarkable. Reproductive: Unremarkable as visualized. IMPRESSION: 1. Acute, uncomplicated appendicitis. 2. No aortic aneurysm, dissection, branch vessel occlusion or acute end organ ischemia. Communications: Call Doctor Appendicitis Electronically signed by: Salima Valentin M.D. 02/15/25 23:41 PM
--- NOTE | 2025-02-15 23:44 | CT Scan Report ---
Exam(s): CTA CHEST EXAM: CT Angiography Chest With Intravenous Contrast CLINICAL HISTORY: Reason for exam: PE. TECHNIQUE: Axial computed tomographic angiography images of the chest with intravenous contrast. CTDI is 22.8 mGy and DLP is 1636.59 mGy-cm. Automated exposure control was utilized for the study. A dose lowering technique was utilized adhering to the principles of ALARA. MIP reconstructed images were created and reviewed. IV contrast is given with moderate pulmonary arterial enhancement, and severe breathing motion artifact, significantly limiting evaluation for small or nonocclusive disease. COMPARISON: None. FINDINGS: Pulmonary arteries: No definite pulmonary embolism. Limited evaluation due to technique. Aorta: No aneurysm. Lungs: Grossly clear. No consolidation. Pleural space: No significant effusion. No pneumothorax. Heart: Moderate cardiomegaly. No significant pericardial effusion. No evidence of elevated right heart pressures. Bones/joints: No acute fracture. Soft tissues: Small hiatal hernia. Bilateral adrenal nodules, see separately dictated CTA abdomen pelvis. Lymph nodes: No enlarged lymph nodes. IMPRESSION: 1. No definite pulmonary embolism. Limited evaluation due to technique. 2. Lungs are grossly clear. Electronically signed by: Salima Valentin M.D. 02/15/25 23:43 PM
--- NOTE | 2025-02-16 00:12 | Emergency Department Note ---
ED Visit Note The patient was seen and examined with Dylan. I performed a substantive portion of all aspects of the medical decision making and agree with the h istory, physical and findings. Please see the note for disposition and details. . .
[2025-02-16 00:36] LABS: Magnesium 1.8 mg/dl (1.7-2.4)
[2025-02-16] MEDS ORDERED: NALOXONE HCL 0.4 MG/1 ML VIAL/CARP IV PRN (00:45)
[2025-02-16] MEDS ORDERED: METOPROLOL TARTRATE 1 MG/ML VIAL IV PRN (00:54)
--- NOTE | 2025-02-16 00:55 | History & Physical Report ---
Date of Service February 16, 2025 Assessment & Plan (1) Acute appendicitis: (2) Acute kidney injury: (3) Asymptomatic PVCs: Plan The patient is a 74-year-old male past medical history including prostate cancer, mild anemia, L DDD/spinal stenosis with radiculopathy, obesity, CAD, casper betes mellitus, dyslipidemia, hypertension, sleep apnea, and generalized osteoarthritis of multiple sites. He presents to the emergency department with complaint of development of severe right lower quadrant pain, chills, that began around 7 PM this evening. He reports he was difficult to take a deep breath secondary to intensity of the pain. He denies any recent injury, recent travels. Workup in the emergency department included laboratories significant for elevated creatinine 1.45, magnesium 1.8, glucose 209. CT scan of abdomen pelvis was consistent with acute appendicitis. Patient received the following from the ED: Zosyn 4.5 g IV, normal saline 1 L bolus, morphine 4 mg IV, and Tylenol 1 g IV. Patient had continued pain and nausea, he was also seen by surgery Dr. Caballero in the emergency department, with plans to take the patient to the OR after admission by the medicine service. Acute appendicitis- N.p.o. Lactate 4.4, with follow-up pending per protocol Zosyn 4.5 g IV every 8 hours Zofran 4 mg IV every 6 hours as needed LR at 80 mL/h Acetaminophen 1 g IV every 8 hours as needed for mild pain or fever Dilaudid 0.25 mg IV every 3 hours as needed for moderate pain Dilaudid 0.5 mg IV every 3 hours as needed for severe pain Narcan IV per protocol as needed Pantoprazole 40 mg IV now and 9 AM Consult general surgery, who has seen the patient in the ED, and will take the patient to the OR emergently. Acute kidney injury- Creatinine 1.45, with base 1.25- Likely secondary to decreased oral intake and fluid losses Status post 1 L normal saline bolus in the ED Admit on LR at 80 mL/h CBC with differential, chemistry profile, magnesium, PT/INR/PTT in the a.m. Hypertension/PVCs/intermittent ventricular trigeminy- The patient will be admitted to telemetry for serial cardiac enzymes, serial EKG's, cardiac rhythm monitoring Patient was asymptomatic with the PVCs and trigeminy Potassium 4.3 Magnesium 1.8, he received 1 g magnesium sulfate IV Lopressor 5 mg IV every 4 hours as needed for systolic blood pressure greater than 150 Diabetes mellitus- Hold metformin Glucose 209 on admission Placed on Accu-Chek with NovoLog SSI Check hemoglobin A1c Hyperlipidemia- Hold rosuvastatin and fenofibrate Check a fasting lipid profile in the a.m. History of Present Illness Primary Care Provider: Varghese Ley MD The patient is a 74-year-old male past medical history including prostate cancer, mild anemia, L DDD/spinal stenosis with radiculopathy, obesity, CAD, diabetes mellitus, dyslipidemia, hypertension, sleep apnea, and generalized osteoarthritis of multiple sites. He presents to the emergency department with complaint of development of severe right lower quadrant pain, chills, that began around 7 PM this evening. He reports he was difficult to take a deep breath secondary to intensity of the pain. He denies any recent injury, recent travels. Workup in the emergency department included laboratories significant for elevated creatinine 1.45, magnesium 1.8, glucose 209. CT scan of abdomen pelvis was consistent with acute appendicitis. Patient received the following from the ED: Zosyn 4.5 g IV, normal saline 1 L bolus, morphine 4 mg IV, and Tylenol 1 g IV. Patient had continued pain and nausea, he was also seen by surgery Dr. Caballero in the emergency department, with plans to take the patient to the OR after admission by the medicine service. Allergies Allergy/AdvReac Type Severity Reaction Status Date / Time pollen extracts Allergy Unknown ALLERGY Verified 12/26/24 15:44 SYMPTOMS No Known Drug Allergies Allergy Verified 12/26/24 15:44 Home Medications Medication Instructions Recorded Confirmed Type ascorbic acid (vitamin C) 500 mg 500 mg PO QAM 02/21/18 02/16/25 History tablet (Vitamin C) coQ10 (ubiquinol) 100 mg capsule 100 mg PO QAM 02/21/18 02/16/25 History multivitamin 1 tab PO QAM 02/21/18 02/16/25 History amoxicillin 500 mg capsule 2,000 mg (4 x 500 mg) PO UD #4 caps 02/12/20 02/16/25 Rx nitroglycerin 400 mcg/spray 1 spray sublingual Q5M PRN chest 01/02/22 02/16/25 Rx translingual pain #4.9 grams aspirin 81 mg capsule 162 mg PO DAILY 11/02/23 02/16/25 History celecoxib 200 mg capsule (Celebrex) 200 mg PO DAILY PRN pain #30 caps 06/20/24 02/16/25 Rx vitamin E (dl, acetate) 180 mg 180 mg PO DAILY 07/24/24 02/16/25 History (400 unit) capsule rosuvastatin 10 mg tablet 10 mg PO DAILY #90 tabs 08/21/24 02/16/25 Rx amlodipine 5 mg tablet 5 mg PO DAILY #90 tabs 08/22/24 02/16/25 Rx olmesartan 40 mg tablet 40 mg PO DAILY #90 tabs 09/22/24 02/16/25 Rx fenofibrate 54 mg tablet 54 mg PO QAM 10/18/24 02/16/25 History ferrous sulfate 325 mg (65 mg 325 mg PO DAILY 10/18/24 02/16/25 History iron) tablet metformin 850 mg tablet 850 mg PO QPM #90 tabs 11/15/24 02/16/25 Rx metoprolol tartrate 50 mg tablet 50 mg PO BID #180 tabs 11/15/24 02/16/25 Rx hydrochlorothiazide 12.5 mg tablet 12.5 mg PO DAILY PRN as directed 11/29/24 02/16/25 History Past Med/Surg History Problem List (Updated 02/16/25 @ 04:21 by Chet Ramirez MD) Asymptomatic PVCs Acute kidney injury Acute appendicitis (Acute) Anemia Medication adverse effect Adrenal nodule Lung nodules Prostate cancer (Chronic 04/24/24) Anemia, mild 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, 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 Lumbar spinal stenosis Myalgia History of colon polyps Obesity (BMI 30.0-34.9) Skin change Chronic constipation Acid reflux (Acute) CAD (coronary artery disease) (Acute) F/U DR GIGI PERKINS Diabetes mellitus (Acute) Dyslipidemia (Acute) Generalized osteoarthritis of multiple sites (Acute) Hypertension (Acute) Legg-Perthes disease (Acute) Lower back pain (Acute) Sleep apnea (Acute) USES NO DEVICE Tubular adenoma (Acute) Medical History Elevated PSA Encounter for pre-operative examination GERD (gastroesophageal reflux disease) Allergic rhinitis History of colon polyps Osteoarthritis Borderline diabetes mellitus Hypertension Hyperlipidemia Surgical History History of tonsillectomy and adenoidectomy S/P trigger finger release R/L HAND History of total hip arthroplasty LEFT History of colonoscopy X 2 History of cardiac cath 10 years ago. [facility]. cp. --> [facility]. follows [facility]/ dr. perkins. History of coronary artery bypass graft 3 vessels. 10 years ago. [facility] [place]. follows [facility]/ dr. perkins Family History Mother Family history of diabetes mellitus Myocardial infarction Brother Family history of diabetes mellitus Denies family history of Ovarian cancer Prostate cancer Breast cancer Colorectal cancer Social History Smoking Status: Never smoker Second Hand Exposure: No; Do You Dip or Chew Tobacco: No; Hx Alcohol Use: Yes Alcohol type: wine Alcohol Intake Frequency: Monthly or Less Hx Substance Use: No Preferred Language: Namibian Communication Ability: Effective Visual Impairment: Diminished Hearing Ability: Hard of Hearing Electronic Tech Required: No Beliefs That Will Affect Care: None marital status: Current Living Situation: Spouse current occupational status: employed 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 Feels Safe at Home: Yes Diet: regular during the past year weight has: remained stable Dental Care, Regularly: Yes Physical Activity Frequency Comment: yardwork and very active Seatbelt Use: always Sunscreen Use: No Assistive Devices: Glasses Review of Systems Review of Systems: The patient denies chest pain, palpitations, cough, lower extremity swelling, sore throat,chills, sweats, blood in urine or stool, dysuria, urinary frequency or urgency, lightheadedness, dizziness, headache, memory loss, loss of consciousness, rash, abnormal bruising or bleeding, imbalance, focal weakness, numbness or tingling in arms or legs, generalized arthralgias or myalgias, back or neck pain, or night sweats. The review of systems is otherwise negative other than for that already noted above, and at least 10 systems have been reviewed. Physical Exam Physical Exam: The patient is awake, alert and oriented 3, well developed and well nourished, normocephalic and atraumatic, lying in bed and in no acute distress. HEENT--PERRL, EOMI, mucous membranes and oropharynx dry. Neck--supple. No JVD. No bruits. Thyroid normal, trachea midline, no adenopathy. Heart--normal S1 and S2. No murmurs, rubs or gallops. Lungs--clear bilaterally, no respiratory distress, no accessory muscle use. Abdomen--normal bowel sounds and soft. Tender right lower quadrant. Nondistended Extremities--no cyanosis or clubbing. No edema. There are good distal pulses b/l. Dermatologic--normal skin turgor, normal color, no abnormal lymph nodes, no rash. Neurologic--cranial nerves II through XII grossly intact. Rheumatologic--normal range of motion. Psychiatric--normal affect. Results & Data Results & Data Vital Signs (Past 12 Hours) Vital Signs Temp Pulse Resp BP Pulse Ox O2 Del Method 02/15/25 23:42 97 H 28 H 02/15/25 23:30 110 H 24 02/15/25 23:24 104 H 12 02/15/25 23:12 107 H 95 02/15/25 23:00 110 H 25 H 96 02/15/25 23:00 198/91 H 02/15/25 23:00 198/91 H 02/15/25 23:00 198/91 H 02/15/25 23:00 198/91 H 02/15/25 23:00 198/91 H 02/15/25 22:51 109 H 33 H 96 02/15/25 22:48 98 H 36 H 97 02/15/25 22:46 194/83 H 02/15/25 22:46 194/83 H 02/15/25 22:46 194/83 H 02/15/25 22:46 194/83 H 02/15/25 22:46 194/83 H 02/15/25 22:45 108 H 35 H 96 02/15/25 22:21 128 H 35 H 100 02/15/25 22:12 116 H 43 H 02/15/25 22:09 109 H 31 H 02/15/25 22:08 199/96 H 02/15/25 22:08 199/96 H 02/15/25 22:08 199/96 H 02/15/25 22:08 199/96 H 02/15/25 22:08 108 H 02/15/25 21:50 Room Air 02/15/25 21:48 36.9 C 96 H 18 146/76 H 97 Room Air Laboratory Results Laboratory Results WBC 8.49 K/ul (4.8-10.8) 02/15/25 21:55 RBC 3.82 M/uL (4.70-6.10) L 02/15/25 21:55 Hgb 11.7 g/dL (14.0-18.0) L 02/15/25 21:55 POC Hgb 11.9 g/dl (14.0-18.0) L 02/15/25 22:24 Hct 34.2 % (42.0-52.0) L 02/15/25 21:55 POC Hct 35 % (42-52) L 02/15/25 22:24 MCV 89.5 fL (80.0-100.0) 02/15/25 21: MCH 30.6 pg (25.0-34.0) 02/15/25 21: MCHC 34.2 g/dL (32.0-36.0) 02/15/25 21:55 RDW Std Deviation 46.6 fL (36.4-46.3) H 02/15/25 21:55 RDW Coeff of Elsy 14.3 % (11.5-14.5) 02/15/25 21:55 Plt Count 203 K/uL (130-400) 02/15/25 21:55 MPV 10.2 fL (9.4-12.4) 02/15/25 21:55 Immature Gran % (Auto) 0.4 % 02/15/25 21:55 Neut % (Auto) 88.1 % 02/15/25 21:55 Lymph % (Auto) 4.2 % 02/15/25 21:55 Maury % (Auto) 6.8 % 02/15/25 21:55 Eos % (Auto) 0.4 % 02/15/25 21:55 Baso % (Auto) 0.1 % 02/15/25 21:55 Neut # (Auto) 7.48 K/uL (1.40-6.50) H 02/15/25 21:55 Lymph # (Auto) 0.36 K/uL (1.20-3.40) L 02/15/25 21:55 Maury # (Auto) 0.58 K/uL (0.11-0.59) 02/15/25 21:55 Eos # (Auto) 0.03 K/uL (0.00-0.50) 02/15/25 21:55 Baso # (Auto) 0.01 K/uL (0.00-0.20) 02/15/25 21:55 Immature Gran # (Auto) 0.03 K/uL (0.01-0.20) 02/15/25 21:55 POC Sodium 140 mmol/L (135-144) 02/15/25 22:24 Sodium 138 mmol/L (136-145) 02/15/25 21:55 POC Potassium 4.5 mmol/L (3.3-5.0) 02/15/25 22:24 Potassium 4.3 mmol/L (3.5-5.1) 02/15/25 21:55 POC Chloride 109 mmol/L (101-112) 02/15/25 22:24 Chloride 106 mmol/L (98-107) 02/15/25 21:55 Carbon Dioxide 19 mmol/L (21-32) L 02/15/25 21:55 POC Total CO2 17 mmol/L (24-31) L 02/15/25 22:24 Anion Gap 13 (3-11) H 02/15/25 21:55 POC Anion Gap 20.0 mmol/L (16-25) 02/15/25 22:24 POC BUN 27 mg/dl (7-18) H 02/15/25 22:24 BUN 27 mg/dl (6-23) H 02/15/25 21:55 Creatinine 1.45 mg/dl (0.6-1.4) H 02/15/25 21:55 POC Creatinine 1.7 mg/dl (0.6-1.3) H 02/15/25 22:24 Est Cr Clr Drug Dosing Not Reportable 02/15/25 21:55 eGFR 49.94 02/15/25 21:55 BUN/Creatinine Ratio 18.6 (10-20) 02/15/25 21:55 Glucose 209 mg/dl (70-99(Fasting)) H 02/15/25 21:55 POC Glucose (other) 229 mg/dl (70-99) H 02/15/25 22:24 Lactate 2.9 mmol/L (0.4-2.0) H* 02/16/25 01:23 Calcium 9.7 mg/dl (8.6-10.3) 02/15/25 21:55 POC Ioniz Calcium Flavio 1.22 mmol/l (1.12-1.32) 02/15/25 22:24 Magnesium 1.8 mg/dl (1.7-2.4) 02/15/25 21:55 Total Bilirubin 0.9 mg/dl (0.2-1.0) 02/15/25 21:55 AST 16 U/L (13-39) 02/15/25 21:55 ALT 16 U/L (7-52) 02/15/25 21:55 Alkaline Phosphatase 76 U/L (34-104) 02/15/25 21:55 Total Protein 7.6 gm/dl (6.0-8.3) 02/15/25 21:55 Albumin 4.2 gm/dl (3.4-5.0) 02/15/25 21:55 Globulin 3.4 gm/dl (2.5-4.0) 02/15/25 21:55 Albumin/Globulin Ratio 1.2 (0.9-2) 02/15/25 21:55 Lipase 23 U/L (11-82) 02/15/25 21:55 Urine Color Dark Yellow 02/15/25 22:00 Urine Appearance Clear (Clear) 02/15/25 22:00 Urine pH 5.0 (4.5-7.5) 02/15/25 22:00 Ur Specific Arena 1.026 (1.000-1.030) 02/15/25 22:00 Urine Protein 2+ (Negative) H 02/15/25 22:00 Urine Glucose (UA) Negative (Negative) 02/15/25 22:00 Urine Ketones 1+ (Negative) H 02/15/25 22:00 Urine Blood Negative (Negative) 02/15/25 22:00 Urine Nitrite Negative (Negative) 02/15/25 22:00 Urine Bilirubin 1+ (Negative) H 02/15/25 22:00 Urine Urobilinogen Negative (Negative) 02/15/25 22:00 Ur Leukocyte Esterase Trace (Negative) H 02/15/25 22:00 Urine WBC (Auto) 0-5 /hpf (0-5) 02/15/25 22:00 Urine RBC (Auto) 0-2 /hpf (0-2) 02/15/25 22:00 U Hyaline Cast (Auto) >20 /lpf (0-2) H 02/15/25 22:00 U Epithel Cells (Auto) 3-5 /hpf (0-2) H 02/15/25 22:00 Urine Bacteria (Auto) None Seen (None Seen) 02/15/25 22:00 Hyaline Casts Present /lpf (None Presnt) A 02/15/25 22:00 Urine Mucus Present (None Prsent) A 02/15/25 22:00 Urine Comment 02/15/25 22:00 Impressions Chest CTA 02/15/25 22:18 Exam(s): CTA CHEST EXAM: CT Angiography Chest With Intravenous Contrast CLINICAL HISTORY: Reason for exam: PE. TECHNIQUE: Axial computed tomographic angiography images of the chest with intravenous contrast. CTDI is 22.8 mGy and DLP is 1636.59 mGy-cm. Automated exposure control was utilized for the study. A dose lowering technique was utilized adhering to the principles of ALARA. MIP reconstructed images were created and reviewed. IV contrast is given with moderate pulmonary arterial enhancement, and severe breathing motion artifact, significantly limiting evaluation for small or nonocclusive disease. COMPARISON: None. FINDINGS: Pulmonary arteries: No definite pulmonary embolism. Limited evaluation due to technique. Aorta: No aneurysm. Lungs: Grossly clear. No consolidation. Pleural space: No significant effusion. No pneumothorax. Heart: Moderate cardiomegaly. No significant pericardial effusion. No evidence of elevated right heart pressures. Bones/joints: No acute fracture. Soft tissues: Small hiatal hernia. Bilateral adrenal nodules, see separately dictated CTA abdomen pelvis. Lymph nodes: No enlarged lymph nodes. IMPRESSION: 1. No definite pulmonary embolism. Limited evaluation due to technique. 2. Lungs are grossly clear. Electronically signed by: Salima Valentin M.D. 02/15/25 23:43 PM Abdomen/Pelvis CTA 02/15/25 22:30 CR Exam(s): CTA ABDOMEN + PELVIS With Contrast IV Amt: 115 ML OPTIRAY 320 EXAM: CT Angiography Abdomen and Pelvis With Intravenous Contrast CLINICAL HISTORY: Reason for exam: severe pain. TECHNIQUE: Axial computed tomographic angiography images of the abdomen and pelvis with intravenous contrast. CTDI is 22.8 mGy and DLP is 1636.59 mGy-cm. Automated exposure control was utilized for the study. A dose lowering technique was utilized adhering to the principles of ALARA. MIP reconstructed images were created and reviewed. There is metal artifact from left hip prosthesis, and mild to moderate artifact from breathing/motion. CONTRAST: Patient received 115 ML OPTIRAY 320 of IV contrast COMPARISON: None. FINDINGS: VASCULATURE: Aorta: Moderate atherosclerosis. No aneurysm or dissection. Celiac trunk and mesenteric arteries: No significant stenosis or occlusion. Renal arteries: No significant stenosis or occlusion. Iliac arteries: Severe atherosclerosis. No significant stenosis or occlusion of the common/external iliac vessels. ABDOMEN/PELVIS: Lower chest: Small hiatal hernia. Liver: Unremarkable. Gallbladder and bile ducts: No ductal dilation. Pancreas: No ductal dilation. Spleen: Unremarkable, for technique. Adrenals: 2.8 cm right adrenal and 14 mm left adrenal nodules. Kidneys and ureters: Moderate to severe bilateral cortical atrophy. No hydronephrosis. Stomach and bowel: No obstruction. Moderate inflammation right lower quadrant, surrounding an enlarged appendix that measures 11 mm, with appendicoliths Intraperitoneal space: No abscess, free air or fluid. Bones/joints: Left hip prosthesis. No acute fracture. Soft tissues: Bilateral fat containing inguinal hernias. Lymph nodes: No enlarged lymph nodes. Bladder: Unremarkable. Reproductive: Unremarkable as visualized. IMPRESSION: 1. Acute, uncomplicated appendicitis. 2. No aortic aneurysm, dissection, branch vessel occlusion or acute end organ ischemia. Communications: Call Doctor Appendicitis Electronically signed by: Salima Valentin M.D. 02/15/25 23:41 PM Code Status & VTE Plan Code Status Full code VTE Prophylaxis Plan VTE Prophylaxis will be ordered: Yes PG Care Time/CCT Total # of Minutes Spent Total Time Spent with Patient: Total time spent is greater than 50% in coordination of care (as documented) at patient's floor/unit and/or counseling patient: Coding Level of Care Code 94756 INT INP/OBS CARE 3/75MIN Diagnoses Acute appendicitis K35.80 Acute appendicitis type: unspecified acute appendicitis type Acute kidney injury N17.9 Asymptomatic PVCs I49.3 (1) Acute appendicitis Acute appendicitis type: unspecified acute appendicitis type Qualified Code(s): K35.80 - Unspecified acute appendicitis
--- NOTE | 2025-02-16 01:08 | History & Physical Report ---
Date of Service February 16, 2025 Assessment & Plan (1) Acute appendicitis: Plan: 74-year-old gentleman with acute appendicitis. He is tachycardic with lactic acid of 4. CT scan with severe acute appendicitis but no evidence of perforation. We discussed the risks and benefits of laparoscopic appendectomy. All questions were answered and he is agreeable to proceed. Consent has been obtained. We will take him to the operating room at the earliest convenience. History of Present Illness Primary Care Provider: Varghese Ley MD 74-year-old presents with a 2-day history of increasing severe abdominal pain lower quadrants. This was accompanied by nausea as well as chills. No history of abdominal operations. He has not been able to eat or drink significant over the past day. Has gone through prostatic radiation earlier this year. Coronary artery bypass 17 years ago. No chest pain or shortness of breath. CT scan with acute appendicitis. Lactate of 4.4. Allergies Allergy/AdvReac Type Severity Reaction Status Date / Time pollen extracts Allergy Unknown ALLERGY Verified 12/26/24 15:44 SYMPTOMS No Known Drug Allergies Allergy Verified 12/26/24 15:44 Home Medications Medication Instructions Recorded Confirmed Type ascorbic acid (vitamin C) 500 mg 500 mg PO QAM 02/21/18 02/16/25 History tablet (Vitamin C) coQ10 (ubiquinol) 100 mg capsule 100 mg PO QAM 02/21/18 02/16/25 History multivitamin 1 tab PO QAM 02/21/18 02/16/25 History amoxicillin 500 mg capsule 2,000 mg (4 x 500 mg) PO UD #4 caps 02/12/20 02/16/25 Rx nitroglycerin 400 mcg/spray 1 spray sublingual Q5M PRN chest 01/02/22 02/16/25 Rx translingual pain #4.9 grams aspirin 81 mg capsule 162 mg PO DAILY 11/02/23 02/16/25 History celecoxib 200 mg capsule (Celebrex) 200 mg PO DAILY PRN pain #30 caps 06/20/24 02/16/25 Rx vitamin E (dl, acetate) 180 mg 180 mg PO DAILY 07/24/24 02/16/25 History (400 unit) capsule rosuvastatin 10 mg tablet 10 mg PO DAILY #90 tabs 08/21/24 02/16/25 Rx amlodipine 5 mg tablet 5 mg PO DAILY #90 tabs 08/22/24 02/16/25 Rx olmesartan 40 mg tablet 40 mg PO DAILY #90 tabs 09/22/24 02/16/25 Rx fenofibrate 54 mg tablet 54 mg PO QAM 10/18/24 02/16/25 History ferrous sulfate 325 mg (65 mg 325 mg PO DAILY 10/18/24 02/16/25 History iron) tablet metformin 850 mg tablet 850 mg PO QPM #90 tabs 11/15/24 02/16/25 Rx metoprolol tartrate 50 mg tablet 50 mg PO BID #180 tabs 11/15/24 02/16/25 Rx hydrochlorothiazide 12.5 mg tablet 12.5 mg PO DAILY PRN as directed 11/29/24 02/16/25 History Past Med/Surg History Problem List (Updated 02/16/25 @ 01:12 by Ok Caballero MD) Acute appendicitis Anemia Medication adverse effect Adrenal nodule Lung nodules Prostate cancer (Chronic 04/24/24) Anemia, mild 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, 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 Lumbar spinal stenosis Myalgia History of colon polyps Obesity (BMI 30.0-34.9) Skin change Chronic constipation Acid reflux (Acute) CAD (coronary artery disease) (Acute) F/U DR GIGI PERKINS Diabetes mellitus (Acute) Dyslipidemia (Acute) Generalized osteoarthritis of multiple sites (Acute) Hypertension (Acute) Legg-Perthes disease (Acute) Lower back pain (Acute) Sleep apnea (Acute) USES NO DEVICE Tubular adenoma (Acute) Medical History Elevated PSA Encounter for pre-operative examination GERD (gastroesophageal reflux disease) Allergic rhinitis History of colon polyps Osteoarthritis Borderline diabetes mellitus Hypertension Hyperlipidemia Surgical History History of tonsillectomy and adenoidectomy S/P trigger finger release R/L HAND History of total hip arthroplasty LEFT History of colonoscopy X 2 History of cardiac cath 10 years ago. [facility]. cp. --> [place]. follows verónica/ dr. perkins. History of coronary artery bypass graft 3 vessels. 10 [place] ago. [facility] [place] follows w/ dr. perkins Family History Mother Family history of diabetes mellitus Myocardial infarction Brother Family history of diabetes mellitus Denies family history of Ovarian cancer Prostate cancer Breast cancer Colorectal cancer Social History Smoking Status: Never smoker Second Hand Exposure: No; Do You Dip or Chew Tobacco: No; Hx Alcohol Use: Yes Alcohol type: wine Alcohol Intake Frequency: Monthly or Less Hx Substance Use: No Preferred Language: Mosotho Communication Ability: Effective Visual Impairment: Diminished Hearing Ability: Hard of Hearing County Assessor Required: No Beliefs That Will Affect Care: None marital status: Current Living Situation: Spouse current occupational status: employed 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 Feels Safe at Home: Yes Diet: regular during the past year weight has: remained stable Dental Care, Regularly: Yes Physical Activity Frequency Comment: yardwork and very active Seatbelt Use: always Sunscreen Use: No Assistive Devices: Glasses Review of Systems Review of Systems: All systems reviewed & are unremarkable except as noted in HPI & below Physical Exam Constitutional: WD/WN, vitals as above Eyes: PERRL, conjunctivae normal, anicteric sclerae Neck: trachea midline, no thyromegaly Respiratory: normal respiratory effort, lungs clear to auscultation Cardiovascular: RRR, no murmur, no edema Gastrointestinal (Abdomen): Inspection/Auscultation: abdomen normal to inspection; abdomen not distended Percussion/Palpation: + abdomen tender ( RLQ) and abdomen soft; no guarding and abdomen not rigid Skin: no rashes, warm and dry Psychiatric: A+Ox3, euthymic affect Results & Data Results & Data Vital Signs (Past 12 Hours) Vital Signs Temp Pulse Resp BP Pulse Ox O2 Del Method 02/15/25 23:42 97 H 28 H 02/15/25 23:30 110 H 24 02/15/25 23:24 104 H 12 02/15/25 23:12 107 H 95 02/15/25 23:00 110 H 25 H 96 02/15/25 23:00 198/91 H 02/15/25 23:00 198/91 H 02/15/25 23:00 198/91 H 02/15/25 23:00 198/91 H 02/15/25 23:00 198/91 H 02/15/25 22:51 109 H 33 H 96 02/15/25 22:48 98 H 36 H 97 02/15/25 22:46 194/83 H 02/15/25 22:46 194/83 H 02/15/25 22:46 194/83 H 02/15/25 22:46 194/83 H 02/15/25 22:46 194/83 H 02/15/25 22:45 108 H 35 H 96 02/15/25 22:21 128 H 35 H 100 02/15/25 22:12 116 H 43 H 02/15/25 22:09 109 H 31 H 02/15/25 22:08 199/96 H 02/15/25 22:08 199/96 H 02/15/25 22:08 199/96 H 02/15/25 22:08 199/96 H 02/15/25 22:08 108 H 02/15/25 21:50 Room Air 02/15/25 21:48 36.9 C 96 H 18 146/76 H 97 Room Air Laboratory Results 02/15/25 02/15/25 02/15/25 Range/Units 23:05 22:24 22:00 WBC (4.8-10.8) K/ul RBC (4.70-6.10) M/uL Hgb (14.0-18.0) g/dL POC Hgb 11.9 L (14.0-18.0) g/dl Hct (42.0-52.0) % POC Hct 35 L (42-52) % MCV (80.0-100.0) fL MCH (25.0-34.0) pg MCHC (32.0-36.0) g/dL RDW Std Deviation (36.4-46.3) fL RDW Coeff of Elsy (11.5-14.5) % Plt Count (130-400) K/uL MPV (9.4-12.4) fL Immature Gran % (Auto) % Neut % (Auto) % Lymph % (Auto) % [place] % (Auto) % Eos % (Auto) % Baso % (Auto) % Neut # (Auto) (1.40-6.50) K/uL Lymph # (Auto) (1.20-3.40) K/uL [place] # (Auto) (0.11-0.59) K/uL Eos # (Auto) (0.00-0.50) K/uL Baso # (Auto) (0.00-0.20) K/uL Immature Gran # (Auto) (0.01-0.20) K/uL POC Sodium 140 (135-144) mmol/L Sodium (136-145) mmol/L POC Potassium 4.5 (3.3-5.0) mmol/L Potassium (3.5-5.1) mmol/L POC Chloride 109 (101-112) mmol/L Chloride (98-107) mmol/L Carbon Dioxide (21-32) mmol/L POC Total CO2 17 L (24-31) mmol/L Anion Gap (3-11) POC Anion Gap 20.0 (16-25) mmol/L POC BUN 27 H (7-18) mg/dl BUN (6-23) mg/dl Creatinine (0.6-1.4) mg/dl POC Creatinine 1.7 H (0.6-1.3) mg/dl Est Cr Clr Drug Dosing eGFR BUN/Creatinine Ratio (10-20) Glucose (70-99(Fasting)) mg/dl POC Glucose (other) 229 H (70-99) mg/dl Lactate 4.4 H* (0.4-2.0) mmol/L Calcium (8.6-10.3) mg/dl POC Ioniz Calcium Flavio 1.22 (1.12-1.32) mmol/l Magnesium (1.7-2.4) mg/dl Total Bilirubin (0.2-1.0) mg/dl AST (13-39) U/L ALT (7-52) U/L Alkaline Phosphatase (34-104) U/L Total Protein (6.0-8.3) gm/dl Albumin (3.4-5.0) gm/dl Globulin (2.5-4.0) gm/dl Albumin/Globulin Ratio (0.9-2) Lipase (11-82) U/L Urine Color Dark Yellow Urine Appearance Clear (Clear) Urine pH 5.0 (4.5-7.5) Ur Specific [place] 1.026 (1.000-1.030) Urine Protein 2+ H (Negative) Urine Glucose (UA) Negative (Negative) Urine Ketones 1+ H (Negative) Urine Blood Negative (Negative) Urine Nitrite Negative (Negative) Urine Bilirubin 1+ H (Negative) Urine Urobilinogen Negative (Negative) Ur Leukocyte Esterase Trace H (Negative) Urine WBC (Auto) 0-5 (0-5) /hpf Urine RBC (Auto) 0-2 (0-2) /hpf U Hyaline Cast (Auto) >20 H (0-2) /lpf U Epithel Cells (Auto) 3-5 H (0-2) /hpf Urine Bacteria (Auto) None Seen (None Seen) Hyaline Casts Present A (None Presnt) /lpf Urine Mucus Present A (None Prsent) Urine Comment 02/15/25 Range/Units 21:55 WBC 8.49 (4.8-10.8) K/ul RBC 3.82 L (4.70-6.10) M/uL Hgb 11.7 L (14.0-18.0) g/dL POC Hgb (14.0-18.0) g/dl Hct 34.2 L (42.0-52.0) % POC Hct (42-52) % MCV 89.5 (80.0-100.0) fL MCH 30.6 (25.0-34.0) pg MCHC 34.2 (32.0-36.0) g/dL RDW Std Deviation 46.6 H (36.4-46.3) fL RDW Coeff of Elsy 14.3 (11.5-14.5) % Plt Count 203 (130-400) K/uL MPV 10.2 (9.4-12.4) fL Immature Gran % (Auto) 0.4 % Neut % (Auto) 88.1 % Lymph % (Auto) 4.2 % [place] % (Auto) 6.8 % Eos % (Auto) 0.4 % Baso % (Auto) 0.1 % Neut # (Auto) 7.48 H (1.40-6.50) K/uL Lymph # (Auto) 0.36 L (1.20-3.40) K/uL [place] # (Auto) 0.58 (0.11-0.59) K/uL Eos # (Auto) 0.03 (0.00-0.50) K/uL Baso # (Auto) 0.01 (0.00-0.20) K/uL Immature Gran # (Auto) 0.03 (0.01-0.20) K/uL POC Sodium (135-144) mmol/L Sodium 138 (136-145) mmol/L POC Potassium (3.3-5.0) mmol/L Potassium 4.3 (3.5-5.1) mmol/L POC Chloride (101-112) mmol/L Chloride 106 (98-107) mmol/L Carbon Dioxide 19 L (21-32) mmol/L POC Total CO2 (24-31) mmol/L Anion Gap 13 H (3-11) POC Anion Gap (16-25) mmol/L POC BUN (7-18) mg/dl BUN 27 H (6-23) mg/dl Creatinine 1.45 H (0.6-1.4) mg/dl POC Creatinine (0.6-1.3) mg/dl Est Cr Clr Drug Dosing Not Reportable eGFR 49.94 BUN/Creatinine Ratio 18.6 (10-20) Glucose 209 H (70-99(Fasting)) mg/dl POC Glucose (other) (70-99) mg/dl Lactate (0.4-2.0) mmol/L Calcium 9.7 (8.6-10.3) mg/dl POC Ioniz Calcium Flavio (1.12-1.32) mmol/l Magnesium 1.8 (1.7-2.4) mg/dl Total Bilirubin 0.9 (0.2-1.0) mg/dl AST 16 (13-39) U/L ALT 16 (7-52) U/L Alkaline Phosphatase 76 (34-104) U/L Total Protein 7.6 (6.0-8.3) gm/dl Albumin 4.2 (3.4-5.0) gm/dl Globulin 3.4 (2.5-4.0) gm/dl Albumin/Globulin Ratio 1.2 (0.9-2) Lipase 23 (11-82) U/L Urine Color Urine Appearance (Clear) Urine pH (4.5-7.5) Ur Specific [place] (1.000-1.030) Urine Protein (Negative) Urine Glucose (UA) (Negative) Urine Ketones (Negative) Urine Blood (Negative) Urine Nitrite (Negative) Urine Bilirubin (Negative) Urine Urobilinogen (Negative) Ur Leukocyte Esterase (Negative) Urine WBC (Auto) (0-5) /hpf Urine RBC (Auto) (0-2) /hpf U Hyaline Cast (Auto) (0-2) /lpf U Epithel Cells (Auto) (0-2) /hpf Urine Bacteria (Auto) (None Seen) Hyaline Casts (None Presnt) /lpf Urine Mucus (None Prsent) Urine Comment Diagnostic Findings Exam(s): CTA ABDOMEN + PELVIS With Contrast IV Amt: 115 ML OPTIRAY 320 EXAM: CT Angiography Abdomen and Pelvis With Intravenous Contrast CLINICAL HISTORY: Reason for exam: severe pain. TECHNIQUE: Axial computed tomographic angiography images of the abdomen and pelvis with intravenous contrast. CTDI is 22.8 mGy and DLP is 1636.59 mGy-cm. Automated exposure control was utilized for the study. A dose lowering technique was utilized adhering to the principles of ALARA. MIP reconstructed images were created and reviewed. There is metal artifact from left hip prosthesis, and mild to moderate artifact from breathing/motion. CONTRAST: Patient received 115 ML OPTIRAY 320 of IV contrast COMPARISON: None. FINDINGS: VASCULATURE: Aorta: Moderate atherosclerosis. No aneurysm or dissection. Celiac trunk and mesenteric arteries: No significant stenosis or occlusion. Renal arteries: No significant stenosis or occlusion. Iliac arteries: Severe atherosclerosis. No significant stenosis or occlusion of the common/external iliac vessels. ABDOMEN/PELVIS: Lower chest: Small hiatal hernia. Liver: Unremarkable. Gallbladder and bile ducts: No ductal dilation. Pancreas: No ductal dilation. Spleen: Unremarkable, for technique. Adrenals: 2.8 cm right adrenal and 14 mm left adrenal nodules. Kidneys and ureters: Moderate to severe bilateral cortical atrophy. No hydronephrosis. Stomach and bowel: No obstruction. Moderate inflammation right lower quadrant, surrounding an enlarged appendix that measures 11 mm, with appendicoliths Intraperitoneal space: No abscess, free air or fluid. Bones/joints: Left hip prosthesis. No acute fracture. Soft tissues: Bilateral fat containing inguinal hernias. Lymph nodes: No enlarged lymph nodes. Bladder: Unremarkable. Reproductive: Unremarkable as visualized. IMPRESSION: 1. Acute, uncomplicated appendicitis. 2. No aortic aneurysm, dissection, branch vessel occlusion or acute end organ ischemia. Communications: Call Doctor Appendicitis Electronically signed by: Salima Valentin M.D. 02/15/25 23:41 PM Code Status & VTE Plan VTE Prophylaxis Plan VTE Prophylaxis will be ordered: Yes
[2025-02-16] MEDS: HYDROmorphone INJ 0.5 MG/0.5 ML SYR IV PRN ×2 (01:10→09:32)
[2025-02-16] MEDS: PANTOprazole 40 MG/10 ML SYR IV STA (01:10)
[2025-02-16] MEDS: MAGNESIUM SULFATE / D5W 1 GM/100 ML BAG IV STA (01:11)
[2025-02-16] MEDS: LACTATED RINGER'S 1,000 ML IV SCH (01:11)
[2025-02-16] MEDS: Patient's HEIGHT &/or WEIGHT Needed STA (01:19)
[2025-02-16] MEDS ORDERED: PROPOFOL IV EMULSION 10 MG/ML 20 ML VIAL IV ONE (01:44)
[2025-02-16] MEDS ORDERED: LIDOCAINE 2% 2 ML VIAL/AMP(20MG/ML) INFIL ONE (01:44)
[2025-02-16] MEDS ORDERED: ROCURONIUM BROMIDE 10 MG/ML 5 ML VIAL IV ONE ×2 (01:44→03:06)
[2025-02-16] MEDS ORDERED: ONDANSETRON INJ 2 MG/ML 2 ML VIAL ONE (01:44)
[2025-02-16] MEDS ORDERED: DEXAMETHASONE SOD INJ 4 MG/ML VIAL ONE (01:45)
--- NOTE | 2025-02-16 02:14 | Anesthesiology Consultation ---
Date of Service February 16, 2025 Assessment & Plan Chart Review Chart Review: Acceptable Risk for Surgery Consults Requested none History Surgery Operation Date: 02/16/25 02:30 Proposed Procedures p Laparoscopic Appendectomy - Ok Caballero MD Height/Weight Height: 6 ft 4 in Weight: 119 kg Allergies Allergy/AdvReac Type Severity Reaction Status Date / Time pollen extracts Allergy Unknown ALLERGY Verified 12/26/24 15:44 SYMPTOMS No Known Drug Allergies Allergy Verified 12/26/24 15:44 Medications Home Medications Medication Instructions Recorded Confirmed Last Taken ascorbic acid (vitamin C) 500 mg 500 mg PO QAM 02/21/18 02/16/25 10/21/21 tablet (Vitamin C) coQ10 (ubiquinol) 100 mg capsule 100 mg PO QAM 02/21/18 02/16/25 10/21/21 multivitamin 1 tab PO QAM 02/21/18 02/16/25 10/21/21 amoxicillin 500 mg capsule 2,000 mg (4 x 500 mg) PO UD #4 caps 02/12/20 02/16/25 Unknown nitroglycerin 400 mcg/spray 1 spray sublingual Q5M PRN chest 01/02/22 02/16/25 Unknown translingual pain #4.9 grams aspirin 81 mg capsule 162 mg PO DAILY 11/02/23 02/16/25 Unknown celecoxib 200 mg capsule (Celebrex) 200 mg PO DAILY PRN pain #30 caps 06/20/24 02/16/25 Unknown vitamin E (dl, acetate) 180 mg 180 mg PO DAILY 07/24/24 02/16/25 Unknown (400 unit) capsule rosuvastatin 10 mg tablet 10 mg PO DAILY #90 tabs 08/21/24 02/16/25 Unknown amlodipine 5 mg tablet 5 mg PO DAILY #90 tabs 08/22/24 02/16/25 Unknown olmesartan 40 mg tablet 40 mg PO DAILY #90 tabs 09/22/24 02/16/25 Unknown fenofibrate 54 mg tablet 54 mg PO QAM 10/18/24 02/16/25 Unknown ferrous sulfate 325 mg (65 mg 325 mg PO DAILY 10/18/24 02/16/25 Unknown iron) tablet metformin 850 mg tablet 850 mg PO QPM #90 tabs 11/15/24 02/16/25 Unknown metoprolol tartrate 50 mg tablet 50 mg PO BID #180 tabs 11/15/24 02/16/25 Unknown hydrochlorothiazide 12.5 mg tablet 12.5 mg PO DAILY PRN as directed 11/29/24 02/16/25 Unknown Active Medications Generic Name Dose Route Start Last Admin Trade Name Freq PRN Reason Stop Dose Admin Hydromorphone HCl 0.5 mg 02/16/25 00:45 02/16/25 01:10 Hydromorphone Inj 0.5 Mg/0.5 Ml Syr IV 03/02/25 00:44 0.5 mg Q3H PRN Administration Severe Pain (Scale 7, 8, 9,10) Magnesium Sulfate/Dextrose 1 gm in 100 mls @ 50 mls/hr 02/16/25 00:42 02/16/25 01:11 Magnesium Sulfate / D5w IV 02/16/25 02:41 50 mls/hr ONE STA Administration Lactated Ringer's 1,000 mls @ 80 mls/hr 02/16/25 00:45 02/16/25 01:11 Lr IV 02/19/25 00:44 80 mls/hr .[id number] JOE Administration Past Medical History Medical History Elevated PSA Encounter for pre-operative examination GERD (gastroesophageal reflux disease) Allergic rhinitis History of colon polyps Osteoarthritis Borderline diabetes mellitus Hypertension Hyperlipidemia Past Family History Family History Mother Family history of diabetes mellitus Myocardial infarction Brother Family history of diabetes mellitus Denies family history of Ovarian cancer Prostate cancer Breast cancer Colorectal cancer Past Surgical History Surgical History History of tonsillectomy and adenoidectomy S/P trigger finger release R/L HAND History of total hip arthroplasty LEFT History of colonoscopy X 2 History of cardiac cath 10 years ago. [facility]. cp. --> [place]. follows jazmyne ford. History of coronary artery bypass graft 3 vessels. 10 [place] [facility] [place] jazmyne ford Social History Smoking Status: Never smoker Do You Dip or Chew Tobacco: No Hx Alcohol Use: Yes Alcohol type: wine alcohol intake frequency: a few times a month Hx Substance Use: No substance use type: does not use Physical Exam Vital Signs Last Vital Signs Temp 36.9 C 02/15/25 21:48 Pulse 98 H 02/16/25 01:30 Resp 21 02/16/25 01:42 BP 133/65 02/16/25 01:00 Pulse Ox 95 02/16/25 01:21 O2 Del Method Room Air 02/15/25 21:50 Testing Laboratory Results 02/15/25 21:55 02/15/25 21:55 Urine Color Dark Yellow 02/15/25 22:00 Urine Appearance Clear (Clear) 02/15/25 22:00 Urine pH 5.0 (4.5-7.5) 02/15/25 22:00 Ur Specific [place] 1.026 (1.000-1.030) 02/15/25 22:00 Urine Protein 2+ (Negative) H 02/15/25 22:00 Urine Glucose (UA) Negative (Negative) 02/15/25 22:00 Urine Ketones 1+ (Negative) H 02/15/25 22:00 Urine Nitrite Negative (Negative) 02/15/25 22:00 Ur Leukocyte Esterase Trace (Negative) H 02/15/25 22:00 Urine WBC (Auto) 0-5 /hpf (0-5) 02/15/25 22:00 Urine RBC (Auto) 0-2 /hpf (0-2) 02/15/25 22:00 U Hyaline Cast (Auto) >20 /lpf (0-2) H 02/15/25 22:00 U Epithel Cells (Auto) 3-5 /hpf (0-2) H 02/15/25 22:00 Urine Bacteria (Auto) None Seen (None Seen) 02/15/25 22:00 02/15/25 22:24 POC Glucose (other) 229 H
[2025-02-16] MEDS ORDERED: PROMETHAZINE HCL 6.25 MG in SODIUM CHLORIDE 0.9% 50 ML IV PRN (02:15)
[2025-02-16] MEDS ORDERED: HYDROmorphone INJ 2 MG/ML SYR/VIAL IV PRN (02:15)
[2025-02-16] MEDS ORDERED: ONDANSETRON INJ 2 MG/ML 2 ML VIAL IV PRN (02:15)
[2025-02-16] MEDS ORDERED: ATROPINE SULFATE 0.1 MG/ML 10ML SYR IV PRN (02:15)
[2025-02-16] MEDS ORDERED: SUGAMMADEX SODIUM 200 MG/2 ML VIAL IV ONE (02:55)
[2025-02-16] MEDS: VANCOMYCIN HCL 1000MG/20ML VIAL ONE (03:25)
[2025-02-16] MEDS ORDERED: LABETALOL HCL IV 5 MG/ML 20ML IV ONE (03:26)
[2025-02-16] MEDS: BUPIVACAINE/EPINEPHRINE 0.5% MPF 1:200,000 30 ML VIAL ONE (03:36)
--- NOTE | 2025-02-16 03:46 | Post Operative Brief Note ---
Immediate Post Op Note Date of Surgery February 16, 2025 Pre & Post Diagnosis Operation Date: 02/16/25 02:30 Pre-Op Diagnosis: Acute appendicitis. Post-Op Diagnosis: Perforated appendix. I identified the patient and participated in the time-out.: Yes Procedure Operation Date: 02/16/25 02:30 Actual Procedures p Laparoscopic Appendectomy - Ok Caballero MD Surgeon Ok Caballero MD Nail Making Machine Tender None Estimated Blood Loss 5 Findings Consistent with Post-Op Diagnosis gangrenous perforated appendix with alia contamination of the abdominal cavity Drains Mamadou-Soriano Drain (15F round.)
--- NOTE | 2025-02-16 03:51 | Operative Report ---
Post Operative Report Pre & Post Diagnosis Operation Date: 02/16/25 02:30 Pre-Op Diagnosis: Acute appendicitis. Post-Op Diagnosis: Perforated appendix. I identified the patient and participated in the time-out.: Yes Procedure Operation Date: 02/16/25 02:30 Actual Procedures p Laparoscopic Appendectomy - Ok Caballero MD Surgeon Ok Caballero MD Hatch Tender None Estimated Blood Loss 5 Findings Consistent with Post-Op Diagnosis gangrenous perforated appendix with alia contamination of the abdominal cavity Specimens appendix Drains 15 German round LMIA Anesthesia Type General Complications none Description of Procedure the patient was taken to the operating room, and placed supine on the operating table. A timeout was performed, perioperative antibiotics were administered, SCD boots were placed. After adequate anesthesia and analgesia was obtained, the abdomen was prepped and draped in the normal sterile fashion. A 1 cm incision was made in the supraumbilical region and carried down to the level of the fascia. A trach hook was used to grasp the fascia and elevated and a varies needle was used to enter the abdominal cavity. The abdomen was insufflated to a pressure of 15 mmHg, and a 5 mm trocar was placed in this location. A 5 mm 30 degree laparoscope was placed into the abdominal cavity, and the abdomen was surveyed. Upon entering the abdominal cavity it was noted that there was alia perforation of the appendix with an extensive inflammatory reaction as well as alia contamination and purulent/feculent fluid throughout the lower quadrants. The patient was placed in Trendelenburg and slightly to the left. One 5 mm trocar was placed in the right upper quadrant, and one 12 mm trocar was placed in the left lower quadrant under direct visualization. The right colon was identified and traced down to the cecum. everything was very inflamed and adhesed together. To identify the colon as well as the pelvic sidewall, multiple loops of small bowel were carefully peeled away. Ultimately,The appendix was identified and elevated anteriorly and medially. 2 completely elevate the appendix to position where we could remove it, the harmonic scalpel was used to take down adhesions as well as the mesoappendix. We also mobilized the cecum from the pelvic sidewall using the harmonic scalpel. At this point, The Endo THERESA stapler was used to transect the appendix at its base through noninflamed tissue. The appendix was placed in an Endo Catch bag, and removed via the left lower quadrant port site. at this point, we checked for hemostasis. The abdomen was copiously irrigated with multiple liters of saline including vancomycin infused saline. This was then suctioned free. A 15 German round LIMA drain was placed through the right upper quadrant port site and was secured with nylon suture.. All trochars removed under direct visualization. The abdomen was desufflated. The fascia in the 12 mm port site was closed with a 0 Vicryl suture. The skin was closed with a running 4-0 Monocryl subcuticular stitch. Dermabond was applied. The patient tolerated the procedure without complication, and was transferred in stable condition to the PACU. All instrument, needle, and sponge counts were correct at the end of the case. I attest to the content of the Intraoperative Record and any orders documented therein. Any exceptions are noted below.
--- NOTE | 2025-02-16 04:23 | Anesthesiology Progress Note ---
Date of Service February 16, 2025 Anesthesia Post Procedure Vital Signs Vital Signs: Temp Pulse Pulse Resp BP BP Pulse Ox 02/16/25 04:18 37.4 C 83 18 98/70 L 94 02/16/25 04:08 37.4 C 85 18 113/55 L 94 02/16/25 03:58 37.2 C 84 18 153/58 H 95 02/16/25 01:42 21 02/16/25 01:30 98 H 21 02/16/25 01:21 90 23 95 02/16/25 01:12 96 H 24 02/16/25 01:00 133/65 02/16/25 01:00 133/65 02/16/25 01:00 133/65 02/16/25 01:00 133/65 02/16/25 01:00 133/65 02/16/25 01:00 93 H 24 02/16/25 00:51 98 H 20 02/16/25 00:42 93 H 21 95 02/16/25 00:30 96 H 21 95 02/16/25 00:21 98 H 21 02/16/25 00:12 97 H 20 02/16/25 00:00 146/60 H 02/16/25 00:00 146/60 H 02/16/25 00:00 146/60 H 02/16/25 00:00 146/60 H 02/16/25 00:00 146/60 H 02/16/25 00:00 100 H 24 02/15/25 23:51 99 H 27 H 96 02/15/25 23:42 97 H 28 H 02/15/25 23:30 110 H 24 02/15/25 23:24 104 H 12 02/15/25 23:12 107 H 95 02/15/25 23:00 110 H 25 H 96 02/15/25 23:00 198/91 H 02/15/25 23:00 198/91 H 02/15/25 23:00 198/91 H 02/15/25 23:00 198/91 H 02/15/25 23:00 198/91 H 02/15/25 22:51 109 H 33 H 96 02/15/25 22:48 98 H 36 H 97 02/15/25 22:46 194/83 H 02/15/25 22:46 194/83 H 02/15/25 22:46 194/83 H 02/15/25 22:46 194/83 H 02/15/25 22:46 194/83 H 02/15/25 22:45 108 H 35 H 96 02/15/25 22:21 128 H 35 H 100 02/15/25 22:12 116 H 43 H 02/15/25 22:09 109 H 31 H 02/15/25 22:08 199/96 H 02/15/25 22:08 199/96 H 02/15/25 22:08 199/96 H 02/15/25 22:08 199/96 H 02/15/25 22:08 108 H 02/15/25 21:50 02/15/25 21:48 36.9 C 96 H 18 146/76 H 97 O2 Del Method 02/16/25 04:18 Room Air 02/16/25 04:08 Room Air 02/16/25 03:58 Room Air 02/16/25 01:42 02/16/25 01:30 02/16/25 01:21 02/16/25 01:12 02/16/25 01:00 02/16/25 01:00 02/16/25 01:00 02/16/25 01:00 02/16/25 01:00 02/16/25 01:00 02/16/25 00:51 02/16/25 00:42 02/16/25 00:30 02/16/25 00:21 02/16/25 00:12 02/16/25 00:00 02/16/25 00:00 02/16/25 00:00 02/16/25 00:00 02/16/25 00:00 02/16/25 00:00 02/15/25 23:51 02/15/25 23:42 02/15/25 23:30 02/15/25 23:24 02/15/25 23:12 02/15/25 23:00 02/15/25 23:00 02/15/25 23:00 02/15/25 23:00 02/15/25 23:00 02/15/25 23:00 02/15/25 22:51 02/15/25 22:48 02/15/25 22:46 02/15/25 22:46 02/15/25 22:46 02/15/25 22:46 02/15/25 22:46 02/15/25 22:45 02/15/25 22:21 02/15/25 22:12 02/15/25 22:09 02/15/25 22:08 02/15/25 22:08 02/15/25 22:08 02/15/25 22:08 02/15/25 22:08 02/15/25 21:50 Room Air 02/15/25 21:48 Room Air Transfer of Care Handoff Completed per policy Notes Mental Status: alert / awake / arousable and participated in evaluation Patient Amnestic to Procedure: Yes Nausea / Vomiting: adequately controlled Pain: adequately controlled Airway Patency, RR, SpO2: stable & adequate BP & HR: stable & adequate Hydration State: stable & adequate Anesthetic Complications: no major complications apparent
[2025-02-16] MEDS ORDERED: GLUCOSE 10 TAB/TUBE PO PRN (04:39)
[2025-02-16] MEDS ORDERED: DEXTROSE 50% 50 ML SYRINGE IV PRN (04:39)
[2025-02-16] MEDS ORDERED: GLUCAGON FOR INJ 1 MG VIAL SQ PRN (04:39)
[2025-02-16] MEDS ORDERED: CARBOHYDRATES FOR HYPOGLYCEMIA PO PRN (04:39)
[2025-02-16] MEDS ORDERED: GLUCOSE 40% GEL 15 GM TUBE PO PRN (04:39)
[2025-02-16] MEDS: PIPERACILLIN/TAZOBACTAM 4.5 GM/100 ML BAG IV SCH (05:43)
[2025-02-16] MEDS ORDERED: Nursing to Pharmacy Communication SCH (05:45)
[2025-02-16] MEDS ORDERED: INSULIN ASPART PER UNIT CHARGE SC SCH (06:00)
[2025-02-16 06:12] LABS: Hematocrit (blood only) 29.7 % (42.0-52.0); Hemoglobin 10.1 g/dL (14.0-18.0); Mean Corpuscular Hemoglobin 30.2 pg (25.0-34.0); Mean Corpuscular Volume 88.9 fL (80.0-100.0); Platelet Count 150 K/uL (130-400); RDW Standard Deviation 46.9 fL (36.4-46.3); Red Blood Count 3.34 M/uL (4.70-6.10); White Blood Count 3.93 K/ul (4.8-10.8)
[2025-02-16 06:35] LABS: Alanine Aminotransferase 11.0 U/L (7-52); Albumin Globulin Ratio 1.5 (0.9-2); Albumin Level 3.7 gm/dl (3.4-5.0); Alkaline Phosphatase 49.0 U/L (34-104); Anion Gap 10.0 (3-11); Bilirubin,Total 1.0 mg/dl (0.2-1.0); Blood Urea Nitrogen 31.0 mg/dl (6-23); Calcium 9.1 mg/dl (8.6-10.3); Carbon Dioxide 18.0 mmol/L (21-32); Chloride 110.0 mmol/L (98-107); Creatinine Clr Calc Pharmacy 51.1 ml/min; Globulin 2.4 gm/dl (2.5-4.0); Glucose 160.0 mg/dl (70-99(Fasting)); Potassium 4.5 mmol/L (3.5-5.1); Sodium 138.0 mmol/L (136-145); Total Protein 6.1 gm/dl (6.0-8.3)
[2025-02-16 06:58] LABS: INR 1.1 (0.9-1.1); Prothrombin Time 11.8 Seconds (9.0-12.0)
[2025-02-16 07:00] LABS: Immature Granulocytes # (auto) 0.01 K/uL (0.01-0.20); Immature Granulocytes % (auto) 0.3 %
[2025-02-16 07:40] LABS: Hemoglobin A1C 6.2 % (4.5-5.6)
[2025-02-16] MEDS: INSULIN ASPART PER UNIT CHARGE SC SCH (09:02)
[2025-02-16] MEDS: PANTOprazole 40 MG/10 ML SYR IV SCH (09:07)
[2025-02-16] MEDS ORDERED: STAT IV/IM STA ×2 (09:10→10:14)
--- NOTE | 2025-02-16 09:14 | Communication Note ---
Date of Service: February 16, 2025 Follow up Admitted this AM by my colleague Abdominal pain much improved since yesterday Urinated a few times this AM, didn't record Lungs CTA bert no rrw Abd soft, ND, TTP at surgical sites, no obvious rebound Ext wwp no edema 02/16/25 05:49 02/16/25 05:49 # Severe sepsis due to perforated appendicitis, present on admission. End organ dysfunction of FROILAN # perforated appendicitis with gross intraabdominal contamination s/p emergency lap appy early AM 02/[address] Caballero # Metabolic acidosis due to sepsis, FROILAN, metformin may contribute -continue pip-tazo, IVF with Na bicarb -sepsis improved -postop care per general surgery # FROILAN on CKD, metabolic acidosis. Bilateral renal atrophy without obstruction on CTA abdomen -change IVF to sodium bicarb until acidosis improves -Cr worsened to 1.69, monitor Cr lytes and UOP -continue IVF -hold ARB, avoid NSAIDS and other nephrotoxins # Abnormal EKG - inferior ST flattening, ectopy with PVCs and ventricular trigemony on tele. Iliac atherosclerosis on CTA (no stenoses). Multiple cardiac risk factors # HTN # HLD -repeat EKG and check troponin -continue ASA and statin -hold amlodipine, ARB, HCTZ for sepsis/postop. Resume when more stable and good po -metoprolol IV PRN # Diabetes type 2 - Hg A1c 6.2%, at goal -metformin held, not on insulin outpatient -continue premeal/PRN short acting insulin, goal BG 120-180 # Lymphopenia - acute on chronic, noted -review records regarding any prior evaluation # incidental bilateral adrenal nodules noted on CT -outpatient follow up DVT ppx - start SQ heparin bid tonight if ok with surgery team
[2025-02-16] MEDS: SODIUM BICARBONATE 8.4% 150 MEQ in WATER, STERILE 1,000 ML IV SCH ×2 (09:57→11:48)
--- NOTE | 2025-02-16 11:49 | Surgery Progress Note ---
Date of Service February 16, 2025 Assessment & Plan (1) Acute perforated appendicitis: Plan POD # 0 s/p laparoscopic appendectomy for perforated appendicitis avss abdomen soft drain with serous purulent drainage no chest pain or shortness of breath urinating since surgery no flatus pain controlled Plan: Continue clears for today Continue IV abx, will need at least 3 days of IV abx continue pain management incentive spirometry OOB to chair and then ambulate strict I & O's continue medical management [place] surgery covering this weekend. Discussed with Dr. jeronimo wills with above. Admission and Anticipated Discharge Date Admission Date: February 16, 2025 Subjective feeling okay, pain /soreness, preop pain resolved no n,v no chest pain or shortness of breath no flatus urinated x 2 since surgery Physical Exam Constitutional: WD/WN, vitals as above + obese, cooperative and comfortable; no acute distress and not ill appearing Respiratory: normal respiratory effort; no respiratory distress, no labored breathing and no retractions Gastrointestinal (Abdomen): Inspection/Auscultation: abdomen normal to inspection, + abdominal surgical incision (c/d/i with dermabond), + abdominal surgical drain present (serous/purulent) and + hypoactive bowel sounds; abdomen not distended and + abnormal bowel sounds Percussion/Palpation: + abdomen tender (at incision sites appropriate postop) and abdomen soft; no guarding, abdomen not rigid and abdomen not firm Skin: no rashes, warm and dry Psychiatric: A+Ox3, euthymic affect Results & Data Vital Signs (Past 12 Hours) Vital Signs Temp Pulse Pulse Resp BP BP Pulse Ox 02/16/25 07:30 80 02/16/25 07:25 36.8 C 81 20 121/63 93 02/16/25 06:15 79 02/16/25 04:40 37.4 C 83 20 125/68 92 02/16/25 04:18 37.4 C 83 18 98/70 L 94 02/16/25 04:08 37.4 C 85 18 113/55 L 94 02/16/25 03:58 37.2 C 84 18 153/58 H 95 02/16/25 01:42 21 02/16/25 01:30 98 H 21 02/16/25 01:21 90 23 95 02/16/25 01:12 96 H 24 02/16/25 01:00 133/65 11/14/25 01:00 133/65 02/16/25 01:00 133/65 02/16/25 01:00 133/65 02/16/25 01:00 133/65 02/16/25 01:00 93 H 24 02/16/25 00:51 98 H 20 02/16/25 00:42 93 H 21 95 02/16/25 00:30 96 H 21 95 02/16/25 00:21 98 H 21 02/16/25 00:12 97 H 20 02/16/25 00:00 146/60 H 02/16/25 00:00 146/60 H 02/16/25 00:00 146/60 H 02/16/25 00:00 146/60 H 02/16/25 00:00 146/60 H 02/16/25 00:00 100 H 24 02/15/25 23:51 99 H 27 H 96 O2 Del Method 02/16/25 07:30 02/16/25 07:25 Room Air 02/16/25 06:15 02/16/25 04:40 Room Air 02/16/25 04:18 Room Air 02/16/25 04:08 Room Air 02/16/25 03:58 Room Air 02/16/25 01:42 02/16/25 01:30 02/16/25 01:21 02/16/25 01:12 02/16/25 01:00 02/16/25 01:00 02/16/25 01:00 02/16/25 01:00 02/16/25 01:00 02/16/25 01:00 02/16/25 00:51 02/16/25 00:42 02/16/25 00:30 02/16/25 00:21 02/16/25 00:12 02/16/25 00:00 02/16/25 00:00 02/16/25 00:00 02/16/25 00:00 02/16/25 00:00 02/16/25 00:00 02/15/25 23:51 Laboratory Results 02/16/25 02/16/25 02/16/25 Range/Units 10:36 09:15 07:54 WBC (4.8-10.8) K/ul RBC (4.70-6.10) M/uL Hgb (14.0-18.0) g/dL POC Hgb (14.0-18.0) g/dl Hct (42.0-52.0) % POC Hct (42-52) % MCV (80.0-100.0) fL MCH (25.0-34.0) pg MCHC (32.0-36.0) g/dL RDW Std Deviation (36.4-46.3) fL RDW Coeff of Elsy (11.5-14.5) % Plt Count (130-400) K/uL MPV (9.4-12.4) fL Immature Gran % (Auto) % Neut % (Auto) % Lymph % (Auto) % [place] % (Auto) % Eos % (Auto) % Baso % (Auto) % Neut # (Auto) (1.40-6.50) K/uL Lymph # (Auto) (1.20-3.40) K/uL [place] # (Auto) (0.11-0.59) K/uL Eos # (Auto) (0.00-0.50) K/uL Baso # (Auto) (0.00-0.20) K/uL Immature Gran # (Auto) (0.01-0.20) K/uL PT (9.0-12.0) Seconds INR (0.9-1.1) POC Sodium (135-144) mmol/L Sodium (136-145) mmol/L POC Potassium (3.3-5.0) mmol/L Potassium (3.5-5.1) mmol/L POC Chloride (101-112) mmol/L Chloride (98-107) mmol/L Carbon Dioxide (21-32) mmol/L POC Total CO2 (24-31) mmol/L Anion Gap (3-11) POC Anion Gap (16-25) mmol/L POC BUN (7-18) mg/dl BUN (6-23) mg/dl Creatinine (0.6-1.4) mg/dl POC Creatinine (0.6-1.3) mg/dl Est Cr Clr Drug Dosing eGFR BUN/Creatinine Ratio (10-20) Glucose (70-99(Fasting)) mg/dl POC Glucose 179 H (70-99) mg/dl POC Glucose (other) (70-99) mg/dl Estimat Average Glucose mg/dl Hemoglobin A1c (4.5-5.6) % Lactate (0.4-2.0) mmol/L Calcium (8.6-10.3) mg/dl POC Ioniz Calcium Flavio (1.12-1.32) mmol/l Magnesium (1.7-2.4) mg/dl Total Bilirubin (0.2-1.0) mg/dl AST (13-39) U/L ALT (7-52) U/L Alkaline Phosphatase (34-104) U/L Troponin I High Sens 109.1 H* 113.8 H* (0-20) pg/ml Total Protein (6.0-8.3) gm/dl Albumin (3.4-5.0) gm/dl Globulin (2.5-4.0) gm/dl Albumin/Globulin Ratio (0.9-2) Lipase (11-82) U/L Urine Color Urine Appearance (Clear) Urine pH (4.5-7.5) Ur Specific [place] (1.000-1.030) Urine Protein (Negative) Urine Glucose (UA) (Negative) Urine Ketones (Negative) Urine Blood (Negative) Urine Nitrite (Negative) Urine Bilirubin (Negative) Urine Urobilinogen (Negative) Ur Leukocyte Esterase (Negative) Urine WBC (Auto) (0-5) /hpf Urine RBC (Auto) (0-2) /hpf U Hyaline Cast (Auto) (0-2) /lpf U Epithel Cells (Auto) (0-2) /hpf Urine Bacteria (Auto) (None Seen) Hyaline Casts (None Presnt) /lpf Urine Mucus (None Prsent) Urine Comment 02/16/25 02/16/25 02/16/25 Range/Units 05:49 04:47 01:23 WBC 3.93 L (4.8-10.8) K/ul RBC 3.34 L (4.70-6.10) M/uL Hgb 10.1 L (14.0-18.0) g/dL POC Hgb (14.0-18.0) g/dl Hct 29.7 L (42.0-52.0) % POC Hct (42-52) % MCV 88.9 (80.0-100.0) fL MCH 30.2 (25.0-34.0) pg MCHC 34.0 (32.0-36.0) g/dL RDW Std Deviation 46.9 H (36.4-46.3) fL RDW Coeff of Elsy 14.4 (11.5-14.5) % Plt Count 150 (130-400) K/uL MPV 10.0 (9.4-12.4) fL Immature Gran % (Auto) 0.3 % Neut % (Auto) 85.7 % Lymph % (Auto) 3.1 % [place] % (Auto) 10.9 % Eos % (Auto) 0.0 % Baso % (Auto) 0.0 % Neut # (Auto) 3.37 (1.40-6.50) K/uL Lymph # (Auto) 0.12 L (1.20-3.40) K/uL [place] # (Auto) 0.43 (0.11-0.59) K/uL Eos # (Auto) 0.00 (0.00-0.50) K/uL Baso # (Auto) 0.00 (0.00-0.20) K/uL Immature Gran # (Auto) 0.01 (0.01-0.20) K/uL PT 11.8 (9.0-12.0) Seconds INR 1.1 (0.9-1.1) POC Sodium (135-144) mmol/L Sodium 138 (136-145) mmol/L POC Potassium (3.3-5.0) mmol/L Potassium 4.5 (3.5-5.1) mmol/L POC Chloride (101-112) mmol/L Chloride 110 H (98-107) mmol/L Carbon Dioxide 18 L (21-32) mmol/L POC Total CO2 (24-31) mmol/L Anion Gap 10 (3-11) POC Anion Gap (16-25) mmol/L POC BUN (7-18) mg/dl BUN 31 H (6-23) mg/dl Creatinine 1.69 H (0.6-1.4) mg/dl POC Creatinine (0.6-1.3) mg/dl Est Cr Clr Drug Dosing 51.1 eGFR 41.56 BUN/Creatinine Ratio 18.3 (10-20) Glucose 160 H (70-99(Fasting)) mg/dl POC Glucose 162 H (70-99) mg/dl POC Glucose (other) (70-99) mg/dl Estimat Average Glucose 131 mg/dl Hemoglobin A1c 6.2 H (4.5-5.6) % Lactate 2.9 H* (0.4-2.0) mmol/L Calcium 9.1 (8.6-10.3) mg/dl POC Ioniz Calcium Flavio (1.12-1.32) mmol/l Magnesium (1.7-2.4) mg/dl Total Bilirubin 1.0 (0.2-1.0) mg/dl AST 14 (13-39) U/L ALT 11 (7-52) U/L Alkaline Phosphatase 49 (34-104) U/L Troponin I High Sens (0-20) pg/ml Total Protein 6.1 (6.0-8.3) gm/dl Albumin 3.7 (3.4-5.0) gm/dl Globulin 2.4 L (2.5-4.0) gm/dl Albumin/Globulin Ratio 1.5 (0.9-2) Lipase (11-82) U/L Urine Color Urine Appearance (Clear) Urine pH (4.5-7.5) Ur Specific [place] (1.000-1.030) Urine Protein (Negative) Urine Glucose (UA) (Negative) Urine Ketones (Negative) Urine Blood (Negative) Urine Nitrite (Negative) Urine Bilirubin (Negative) Urine Urobilinogen (Negative) Ur Leukocyte Esterase (Negative) Urine WBC (Auto) (0-5) /hpf Urine RBC (Auto) (0-2) /hpf U Hyaline Cast (Auto) (0-2) /lpf U Epithel Cells (Auto) (0-2) /hpf Urine Bacteria (Auto) (None Seen) Hyaline Casts (None Presnt) /lpf Urine Mucus (None Prsent) Urine Comment 02/15/25 02/15/25 02/15/25 Range/Units 23:05 22:24 22:00 WBC (4.8-10.8) K/ul RBC (4.70-6.10) M/uL Hgb (14.0-18.0) g/dL POC Hgb 11.9 L (14.0-18.0) g/dl Hct (42.0-52.0) % POC Hct 35 L (42-52) % MCV (80.0-100.0) fL MCH (25.0-34.0) pg MCHC (32.0-36.0) g/dL RDW Std Deviation (36.4-46.3) fL RDW Coeff of Elsy (11.5-14.5) % Plt Count (130-400) K/uL MPV (9.4-12.4) fL Immature Gran % (Auto) % Neut % (Auto) % Lymph % (Auto) % [place] % (Auto) % Eos % (Auto) % Baso % (Auto) % Neut # (Auto) (1.40-6.50) K/uL Lymph # (Auto) (1.20-3.40) K/uL [place] # (Auto) (0.11-0.59) K/uL Eos # (Auto) (0.00-0.50) K/uL Baso # (Auto) (0.00-0.20) K/uL Immature Gran # (Auto) (0.01-0.20) K/uL PT (9.0-12.0) Seconds INR (0.9-1.1) POC Sodium 140 (135-144) mmol/L Sodium (136-145) mmol/L POC Potassium 4.5 (3.3-5.0) mmol/L Potassium (3.5-5.1) mmol/L POC Chloride 109 (101-112) mmol/L Chloride (98-107) mmol/L Carbon Dioxide (21-32) mmol/L POC Total CO2 17 L (24-31) mmol/L Anion Gap (3-11) POC Anion Gap 20.0 (16-25) mmol/L POC BUN 27 H (7-18) mg/dl BUN (6-23) mg/dl Creatinine (0.6-1.4) mg/dl POC Creatinine 1.7 H (0.6-1.3) mg/dl Est Cr Clr Drug Dosing eGFR BUN/Creatinine Ratio (10-20) Glucose (70-99(Fasting)) mg/dl POC Glucose (70-99) mg/dl POC Glucose (other) 229 H (70-99) mg/dl Estimat Average Glucose mg/dl Hemoglobin A1c (4.5-5.6) % Lactate 4.4 H* (0.4-2.0) mmol/L Calcium (8.6-10.3) mg/dl POC Ioniz Calcium Flavio 1.22 (1.12-1.32) mmol/l Magnesium (1.7-2.4) mg/dl Total Bilirubin (0.2-1.0) mg/dl AST (13-39) U/L ALT (7-52) U/L Alkaline Phosphatase (34-104) U/L Troponin I High Sens (0-20) pg/ml Total Protein (6.0-8.3) gm/dl Albumin (3.4-5.0) gm/dl Globulin (2.5-4.0) gm/dl Albumin/Globulin Ratio (0.9-2) Lipase (11-82) U/L Urine Color Dark Yellow Urine Appearance Clear (Clear) Urine pH 5.0 (4.5-7.5) Ur Specific [place] 1.026 (1.000-1.030) Urine Protein 2+ H (Negative) Urine Glucose (UA) Negative (Negative) Urine Ketones 1+ H (Negative) Urine Blood Negative (Negative) Urine Nitrite Negative (Negative) Urine Bilirubin 1+ H (Negative) Urine Urobilinogen Negative (Negative) Ur Leukocyte Esterase Trace H (Negative) Urine WBC (Auto) 0-5 (0-5) /hpf Urine RBC (Auto) 0-2 (0-2) /hpf U Hyaline Cast (Auto) >20 H (0-2) /lpf U Epithel Cells (Auto) 3-5 H (0-2) /hpf Urine Bacteria (Auto) None Seen (None Seen) Hyaline Casts Present A (None Presnt) /lpf Urine Mucus Present A (None Prsent) Urine Comment 02/15/25 Range/Units 21:55 WBC 8.49 (4.8-10.8) K/ul RBC 3.82 L (4.70-6.10) M/uL Hgb 11.7 L (14.0-18.0) g/dL POC Hgb (14.0-18.0) g/dl Hct 34.2 L (42.0-52.0) % POC Hct (42-52) % MCV 89.5 (80.0-100.0) fL MCH 30.6 (25.0-34.0) pg MCHC 34.2 (32.0-36.0) g/dL RDW Std Deviation 46.6 H (36.4-46.3) fL RDW Coeff of Elsy 14.3 (11.5-14.5) % Plt Count 203 (130-400) K/uL MPV 10.2 (9.4-12.4) fL Immature Gran % (Auto) 0.4 % Neut % (Auto) 88.1 % Lymph % (Auto) 4.2 % [place] % (Auto) 6.8 % Eos % (Auto) 0.4 % Baso % (Auto) 0.1 % Neut # (Auto) 7.48 H (1.40-6.50) K/uL Lymph # (Auto) 0.36 L (1.20-3.40) K/uL [place] # (Auto) 0.58 (0.11-0.59) K/uL Eos # (Auto) 0.03 (0.00-0.50) K/uL Baso # (Auto) 0.01 (0.00-0.20) K/uL Immature Gran # (Auto) 0.03 (0.01-0.20) K/uL PT (9.0-12.0) Seconds INR (0.9-1.1) POC Sodium (135-144) mmol/L Sodium 138 (136-145) mmol/L POC Potassium (3.3-5.0) mmol/L Potassium 4.3 (3.5-5.1) mmol/L POC Chloride (101-112) mmol/L Chloride 106 (98-107) mmol/L Carbon Dioxide 19 L (21-32) mmol/L POC Total CO2 (24-31) mmol/L Anion Gap 13 H (3-11) POC Anion Gap (16-25) mmol/L POC BUN (7-18) mg/dl BUN 27 H (6-23) mg/dl Creatinine 1.45 H (0.6-1.4) mg/dl POC Creatinine (0.6-1.3) mg/dl Est Cr Clr Drug Dosing Not Reportable eGFR 49.94 BUN/Creatinine Ratio 18.6 (10-20) Glucose 209 H (70-99(Fasting)) mg/dl POC Glucose (70-99) mg/dl POC Glucose (other) (70-99) mg/dl Estimat Average Glucose mg/dl Hemoglobin A1c (4.5-5.6) % Lactate (0.4-2.0) mmol/L Calcium 9.7 (8.6-10.3) mg/dl POC Ioniz Calcium Flavio (1.12-1.32) mmol/l Magnesium 1.8 (1.7-2.4) mg/dl Total Bilirubin 0.9 (0.2-1.0) mg/dl AST 16 (13-39) U/L ALT 16 (7-52) U/L Alkaline Phosphatase 76 (34-104) U/L Troponin I High Sens (0-20) pg/ml Total Protein 7.6 (6.0-8.3) gm/dl Albumin 4.2 (3.4-5.0) gm/dl Globulin 3.4 (2.5-4.0) gm/dl Albumin/Globulin Ratio 1.2 (0.9-2) Lipase 23 (11-82) U/L Urine Color Urine Appearance (Clear) Urine pH (4.5-7.5) Ur Specific [place] (1.000-1.030) Urine Protein (Negative) Urine Glucose (UA) (Negative) Urine Ketones (Negative) Urine Blood (Negative) Urine Nitrite (Negative) Urine Bilirubin (Negative) Urine Urobilinogen (Negative) Ur Leukocyte Esterase (Negative) Urine WBC (Auto) (0-5) /hpf Urine RBC (Auto) (0-2) /hpf U Hyaline Cast (Auto) (0-2) /lpf U Epithel Cells (Auto) (0-2) /hpf Urine Bacteria (Auto) (None Seen) Hyaline Casts (None Presnt) /lpf Urine Mucus (None Prsent) Urine Comment
--- NOTE | 2025-02-16 16:22 | XCELERA ---
[id number]
--- NOTE | 2025-02-16 20:20 | Electrocardiogram Report ---
Test Reason : Blood Pressure : */* mmHG Vent. Rate : 103 BPM Atrial Rate : 103 BPM P-R Int : 120 ms QRS Dur : 98 ms QT Int : 352 ms P-R-T Axes : 11 33 118 degrees QTcB Int : 461 ms Sinus tachycardia with occasional Premature ventricular complexes Abnormal ECG When compared with ECG of 09-Jun-2016 08:43, Premature ventricular complexes are now Present Vent. rate has increased by 41 bpm Confirmed by Sudhakar Frank ([id number]) on 02/16/2025 8:20:46 PM Referred By: REFERRED SELF Confirmed By: Sudhakar Frank
--- NOTE | 2025-02-16 20:24 | Electrocardiogram Report ---
Test Reason : Blood Pressure : */* mmHG Vent. Rate : 107 BPM Atrial Rate : 107 BPM P-R Int : 150 ms QRS Dur : 96 ms QT Int : 346 ms P-R-T Axes : 21 38 142 degrees QTcB Int : 461 ms Sinus tachycardia Marked ST abnormality, possible lateral subendocardial injury Abnormal ECG When compared with ECG of 15-Feb-2025 21:52, (unconfirmed) Premature ventricular complexes are no longer Present Confirmed by Sudhakar Frank ([id number]) on 02/16/2025 8:24:10 PM Referred By: REFERRED SELF Confirmed By: Sudhakar Frank
[2025-02-16] MEDS: HEPARIN SOD 5,000 UNIT/0.5 ML VIAL SQ SCH (20:28)
[2025-02-16] MEDS: CYCLOBENZAPRINE HCL 10 MG TAB PO STA (21:26)
[2025-02-17 06:39] LABS: Hematocrit (blood only) 27.3 % (42.0-52.0); Hemoglobin 9.4 g/dL (14.0-18.0); Immature Granulocytes # (auto) 0.05 K/uL (0.01-0.20); Immature Granulocytes % (auto) 0.7 %; Mean Corpuscular Hemoglobin 30.5 pg (25.0-34.0); Mean Corpuscular Volume 88.6 fL (80.0-100.0); Platelet Count 156 K/uL (130-400); RDW Standard Deviation 46.8 fL (36.4-46.3); Red Blood Count 3.08 M/uL (4.70-6.10); White Blood Count 6.88 K/ul (4.8-10.8)
[2025-02-17 07:17] LABS: Partial Thromboplastin Time 33 Seconds (21-31)
[2025-02-17 07:21] LABS: Alanine Aminotransferase 12.0 U/L (7-52); Albumin Globulin Ratio 1.2 (0.9-2); Albumin Level 3.6 gm/dl (3.4-5.0); Alkaline Phosphatase 55.0 U/L (34-104); Anion Gap 13.0 (3-11); Bilirubin,Total 1.0 mg/dl (0.2-1.0); Blood Urea Nitrogen 32.0 mg/dl (6-23); Calcium 9.0 mg/dl (8.6-10.3); Carbon Dioxide 26.0 mmol/L (21-32); Chloride 97.0 mmol/L (98-107); Creatinine Clr Calc Pharmacy 48.3 ml/min; Globulin 2.9 gm/dl (2.5-4.0); Glucose 115.0 mg/dl (70-99(Fasting)); Magnesium 1.8 mg/dl (1.7-2.4); Potassium 3.5 mmol/L (3.5-5.1); Sodium 136.0 mmol/L (136-145); Total Protein 6.5 gm/dl (6.0-8.3)
--- NOTE | 2025-02-17 08:21 | Electrocardiogram Report ---
Test Reason : Blood Pressure : */* mmHG Vent. Rate : 88 BPM Atrial Rate : 88 BPM P-R Int : 152 ms QRS Dur : 92 ms QT Int : 372 ms P-R-T Axes : 22 18 100 degrees QTcB Int : 450 ms Sinus rhythm with occasional Premature ventricular complexes Nonspecific ST and T wave abnormality Abnormal ECG When compared with ECG of 15-Feb-2025 23:05, (unconfirmed) Premature ventricular complexes are now Present ST no longer depressed in Inferior leads ST no longer depressed in Lateral leads Confirmed by Sudhakar Frank ([id number] on 02/17/2025 8:21:31 AM Referred By: REFERRED SELF Confirmed By: Sudhakar Frank
[2025-02-17] MEDS: METOPROLOL TARTRATE 50 MG TAB PO SCH (09:28)
--- NOTE | 2025-02-17 11:43 | Surgery Progress Note ---
Date of Service February 17, 2025 Assessment & Plan (1) Status post laparoscopic appendectomy: Plan: POD #1 laparoscopic appendectomy for acute perforated appendicitis, doing well Advance to full liquids Continue IV antibiotics for 3 days postop, transition to orals and discharge early next week if doing well Ambulation, out of bed to chair, I-S Anticoagulation ordered (2) Acute perforated appendicitis: Admission and Anticipated Discharge Date Admission Date: February 16, 2025 Subjective POD #1 laparoscopic appendectomy for perforated appendicitis. Doing well, feeling much better than prior to surgery. Some lower abdominal discomfort and cramping. Tolerating clears. Physical Exam Constitutional: WD/WN, vitals as above Gastrointestinal (Abdomen): Inspection/Auscultation: + abdominal surgical incision (Healing well) Percussion/Palpation: + abdomen tender (Appropriately tender to palpation); no guarding and abdomen not rigid Results & Data Vital Signs (Past 12 Hours) Vital Signs Temp Pulse Resp BP Pulse Ox O2 Del Method 02/17/25 11:12 36.8 C 79 18 106/62 93 Room Air 02/17/25 08:02 37.8 C H 92 H 20 139/64 90 Room Air 02/17/25 03:03 37.5 C 80 20 125/68 94 Room Air Laboratory Results Laboratory Results - last 24 hr 02/15/25 02/16/25 02/16/25 23:05 12:00 16:57 WBC RBC Hgb Hct MCV MCH MCHC RDW Std Deviation RDW Coeff of Elsy Plt Count MPV Immature Gran % (Auto) Neut % (Auto) Lymph % (Auto) Ferry % (Auto) Eos % (Auto) Baso % (Auto) Neut # (Auto) Lymph # (Auto) Ferry # (Auto) Eos # (Auto) Baso # (Auto) Immature Gran # (Auto) APTT PTT Ratio Sodium Potassium Chloride Carbon Dioxide Anion Gap BUN Creatinine Est Cr Clr Drug Dosing eGFR BUN/Creatinine Ratio Glucose POC Glucose 226 H 141 H Calcium Magnesium Total Bilirubin AST ALT Alkaline Phosphatase Troponin I High Sens Total Protein Albumin Globulin Albumin/Globulin Ratio Bld Cult ID Panel PCR Pending 02/16/25 02/16/25 02/17/25 19:35 19:58 01:37 WBC RBC Hgb Hct MCV MCH MCHC RDW Std Deviation RDW Coeff of Elsy Plt Count MPV Immature Gran % (Auto) Neut % (Auto) Lymph % (Auto) Ferry % (Auto) Eos % (Auto) Baso % (Auto) Neut # (Auto) Lymph # (Auto) Ferry # (Auto) Eos # (Auto) Baso # (Auto) Immature Gran # (Auto) APTT PTT Ratio Sodium Potassium Chloride Carbon Dioxide Anion Gap BUN Creatinine Est Cr Clr Drug Dosing eGFR BUN/Creatinine Ratio Glucose POC Glucose 133 H Calcium Magnesium Total Bilirubin AST ALT Alkaline Phosphatase Troponin I High Sens 63.6 H* D 56.8 H* Total Protein Albumin Globulin Albumin/Globulin Ratio Bld Cult ID Panel PCR 02/17/25 02/17/25 05:26 07:51 WBC 6.88 RBC 3.08 L Hgb 9.4 L Hct 27.3 L MCV 88.6 MCH 30.5 MCHC 34.4 RDW Std Deviation 46.8 H RDW Coeff of Elsy 14.6 H Plt Count 156 MPV 10.7 Immature Gran % (Auto) 0.7 Neut % (Auto) 88.3 Lymph % (Auto) 4.5 Ferry % (Auto) 6.1 Eos % (Auto) 0.3 Baso % (Auto) 0.1 Neut # (Auto) 6.07 Lymph # (Auto) 0.31 L Ferry # (Auto) 0.42 Eos # (Auto) 0.02 Baso # (Auto) 0.01 Immature Gran # (Auto) 0.05 APTT 33 H PTT Ratio 1.2 Sodium 136 Potassium 3.5 D Chloride 97 L Carbon Dioxide 26 Anion Gap 13 H BUN 32 H Creatinine 1.79 H Est Cr Clr Drug Dosing 48.3 eGFR 38.79 BUN/Creatinine Ratio 17.9 Glucose 115 H POC Glucose 147 H Calcium 9.0 Magnesium 1.8 Total Bilirubin 1.0 AST 17 ALT 12 Alkaline Phosphatase 55 Troponin I High Sens Total Protein 6.5 Albumin 3.6 Globulin 2.9 Albumin/Globulin Ratio 1.2 Bld Cult ID Panel PCR PG Care Time/CCT Total # of Minutes Spent Total Time Spent with Patient: Total time spent is greater than 50% in coordination of care (as documented) at patient's floor/unit and/or counseling patient: Coding Level of Care Code 70841 Post Operative Follow-Up Diagnoses Status post laparoscopic appendectomy Z90.49 Acute perforated appendicitis K35.32
[2025-02-17 12:37] LABS: A calco-baum cmplx NotReported Not Detected (NotDetected); Bact fragilis Not Reported Not Detected (NotDetected); Blood Culture Id Panel PCR Panel Negative (NotDetected); C auris Not Reported Not Detected (NotDetected); Calbicans Not Reported Not Detected (NotDetected); Candida glabrata Not Reported Not Detected (NotDetected); Candida krusei Not Reported Not Detected (NotDetected); Cneoformans/gatti Not Reported Not Detected (NotDetected); Cparapsilosis Not Reported Not Detected (NotDetected); Ctropicalis Not Reported Not Detected (NotDetected); E cloacae compx Not Reported Not Detected (NotDetected); Efaecalis Not Reported Not Detected (NotDetected); Efaecium Not Reported Not Detected (NotDetected); Enterobacterales Not Reported Not Detected (NotDetected); Escherichia coli Not Reported Not Detected (NotDetected); H influenzae Not Reported Not Detected (NotDetected); K aerogenes Not Reported Not Detected (NotDetected); Koxytoca Not Reported Not Detected (NotDetected); Kpneumoniae grp Not Reported Not Detected (NotDetected); Lmonocyt Not Reported Not Detected (NotDetected); N meningitidis Not Reported Not Detected (NotDetected); P aeruginosa Not Reported Not Detected (NotDetected); Proteus spp Not Reported Not Detected (NotDetected); Salmonella spp Not Reported Not Detected (NotDetected); Staph lugdunensis Not Reported Not Detected (NotDetected); Staph spp. Not Reported Not Detected (NotDetected); Staphaureus Not Reported Not Detected (NotDetected); Staphepi Not Reported Not Detected (NotDetected); Stenmaltophilia Not Reported Not Detected (NotDetected); Strep agal(GrpB) Not Reported Not Detected (NotDetected); Strep pneum Not Reported Not Detected (NotDetected); Strep pyog (GrpA) Not Reported Not Detected (NotDetected); Strep spp Not Reported Not Detected (NotDetected)
--- NOTE | 2025-02-17 14:32 | Hospitalist Progress Note ---
Date of Service February 17, 2025 Assessment & Plan (1) Acute appendicitis: (2) Acute kidney injury: (3) Asymptomatic PVCs: Plan 74-year-old man admitted with severe sepsis due to perforated appendicitis with gram-negative bacteremia, FROILAN improving about as quick as can be expected given how sick he was on presentation # Severe sepsis due to perforated appendicitis, present on admission. End organ dysfunction of FROILAN # perforated appendicitis with gross intraabdominal contamination s/p emergency lap appy early AM 02/[address] Caballero # gram-negative bacteremia # Metabolic acidosis due to sepsis, FROILAN, metformin may contribute - sepsis and metabolic acidosis resolved -continue pip-tazo -because of bacteremia he should have 4 days of IV antibiotics postoperatively then can change to oral and complete 7-day course - postoperative care per general surgery, reviewed recommendations in their note # FROILAN on CKD, metabolic acidosis. Bilateral renal atrophy without obstruction on CTA abdomen - treated acidosis with sodium HCO3 IV and this has resolved, stop bicarbonate drip - creatinine slightly worse today but appears to be plateauing, good urine output, good prognosis - continue to monitor urine output recheck BMP in a.m. - continue holding ARB and avoid NSAIDs and other nephrotoxins # myocardial demand ischemia due to sepsis present on admission with no evidence of acute coronary syndrome # Abnormal EKG - inferior ST flattening, ectopy with PVCs and ventricular trigemony on tele. Iliac atherosclerosis on CTA (no stenoses). Multiple cardiac risk factors # HTN # HLD - at bedtime troponin became mildly elevated and has already downtrended - TTE yesterday was essentially normal no regional wall motion abnormalities -continue ASA and statin, resume metoprolol p.o. -hold amlodipine, ARB, HCTZ for sepsis/postop. Resume when more stable and good po -metoprolol IV PRN - consider outpatient stress test # Diabetes type 2 - Hg A1c 6.2%, at goal -metformin held, not on insulin outpatient -continue premeal/PRN short acting insulin, goal BG 120-180 - blood glucose at goal # Lymphopenia - acute on chronic, noted - white blood count has normalized # incidental bilateral adrenal nodules noted on CT -outpatient follow up DVT ppx - SQ heparin bid Admission and Anticipated Discharge Date Admission Date: February 16, 2025 Subjective He reports feeling a bit better today but still has pain in the lower right side of his abdomen, bloating, and nausea. He hasn't vomited or passed gas. He is able to walk around without any trouble and doesn't have any shortness of breath or chest pain. Physical Exam Physical Exam: General Appearance: Awake, alert, oriented x4, appears well. Vital signs: Reviewed past 24h vital signs in EMR, unremarkable. HEENT: Within normal limits. Respiratory: Clear to auscultation bilaterally, no rhonchi, rales, or wheezes. Cardiovascular: Regular rhythm, no murmurs, rubs, or gallops. Gastrointestinal: Moderately distended, tympanic, bowel sounds present, no rebound tenderness, tender in right lower abdomen. Extremities: Slightly cool lower extremities, good capillary refill, mild bilateral ankle and foot edema (new). Skin: Warm, dry, no rashes. Neurological: AOx4, normal speech and mentation, delgadillo x 4. Psychiatric: Normal. Results & Data Results & Data Vital Signs (Past 12 Hours) Vital Signs Temp Pulse Resp BP Pulse Ox O2 Del Method 02/17/25 11:12 36.8 C 79 18 106/62 93 Room Air 02/17/25 08:02 37.8 C H 92 H 20 139/64 90 Room Air 02/17/25 03:03 37.5 C 80 20 125/68 94 Room Air Laboratory Results - Labs: - Blood glucose: 130s to 140s - White count: 6.8 - Hemoglobin: 9.4 - Sodium: 136 - Potassium: 3.5 - Carbon dioxide: 26 - Anion gap: 13 - BUN: 32 - Creatinine: 1.79 - Magnesium: 1.8 - LFTs: Normal - High sensitivity troponin: 56 - Albumin: Normal - Diagnostic Testing: - Blood cultures: Gram-negative tg in 1 out of 4 blood cultures drawn in ED (anaerobic bottle) PG Care Time/CCT Total # of Minutes Spent Total Time Spent with Patient: Total time spent is greater than 50% in coordination of care (as documented) at patient's floor/unit and/or counseling patient: Coding Level of Care Code 27984 SUB INP/OBS CARE 3/50MIN Diagnoses Acute appendicitis K35.80 Acute appendicitis type: unspecified acute appendicitis type Acute kidney injury N17.9 Asymptomatic PVCs I49.3 (1) Acute appendicitis Acute appendicitis type: unspecified acute appendicitis type Qualified Code(s): K35.80 - Unspecified acute appendicitis
[2025-02-17] MEDS: ACETAMINOPHEN 1,000 MG/100 ML VIAL IV PRN (18:24)
[2025-02-18 06:07] LABS: Hematocrit (blood only) 25.3 % (42.0-52.0); Hemoglobin 8.7 g/dL (14.0-18.0); Immature Granulocytes # (auto) 0.04 K/uL (0.01-0.20); Immature Granulocytes % (auto) 0.7 %; Mean Corpuscular Hemoglobin 30.3 pg (25.0-34.0); Mean Corpuscular Volume 88.2 fL (80.0-100.0); Platelet Count 162 K/uL (130-400); RDW Standard Deviation 45.5 fL (36.4-46.3); Red Blood Count 2.87 M/uL (4.70-6.10); White Blood Count 6.06 K/ul (4.8-10.8)
[2025-02-18 06:26] LABS: Alanine Aminotransferase 10.0 U/L (7-52); Albumin Globulin Ratio 1.1 (0.9-2); Albumin Level 3.2 gm/dl (3.4-5.0); Alkaline Phosphatase 71.0 U/L (34-104); Anion Gap 12.0 (3-11); Bilirubin,Total 0.9 mg/dl (0.2-1.0); Blood Urea Nitrogen 38.0 mg/dl (6-23); Calcium 8.7 mg/dl (8.6-10.3); Carbon Dioxide 25.0 mmol/L (21-32); Chloride 100.0 mmol/L (98-107); Creatinine Clr Calc Pharmacy 42.8 ml/min; Globulin 2.8 gm/dl (2.5-4.0); Glucose 117.0 mg/dl (70-99(Fasting)); Magnesium 2.1 mg/dl (1.7-2.4); Potassium 3.2 mmol/L (3.5-5.1); Sodium 137.0 mmol/L (136-145); Total Protein 6.0 gm/dl (6.0-8.3)
[2025-02-18 06:49] LABS: Partial Thromboplastin Time 35 Seconds (21-31)
--- NOTE | 2025-02-18 09:48 | XRay Report ---
SINGLE VIEW CHEST CLINICAL HISTORY: Hypoxia FINDINGS: An AP, portable, upright chest radiograph is compared to study dated findings a 12 and emile elated with chest CT dated 02/15/2025. The patient is status post midline sternotomy. The heart is en larged noting atherosclerotic calcification of the thoracic aorta. There is pulmonary vascular conges tion. There are small pleural effusions with dependent consolidation. No pneumothorax is seen. The sk eletal structures are osteopenic. The bony thorax is grossly intact. Calcific tendinopathy is noted i n the left shoulder. IMPRESSION: 1. Cardiomegaly with evidence of congestive failure. 2. Small pleural effusions with dependent consolidation. Radiographic follow-up to resolution is john mmended. ACT 112: Negative or not required by law. Electronically signed by: Kemar Ashford M.D. 02/18/2025 9:47 AM
[2025-02-18] MEDS: POTASSIUM CHLORIDE CRTAB 20 MEQ TABCR PO SCH (10:29)
--- NOTE | 2025-02-18 12:01 | Surgery Progress Note ---
Date of Service February 18, 2025 Assessment & Plan (1) Status post laparoscopic appendectomy: Plan: POD #2 laparoscopic appendectomy for acute perforated appendicitis, doing well Low fiber diet Continue IV antibiotics for 3 days postop, transition to orals and discharge, possibly tomorrow Ambulation, out of bed to chair, I-S Anticoagulation ordered (2) Acute perforated appendicitis: Admission and Anticipated Discharge Date Admission Date: February 16, 2025 Subjective POD #2 laparoscopic appendectomy for perforated appendicitis. Doing well, feeling much better than prior to surgery. Improved lower abdominal discomfort and cramping. Tolerating diet Physical Exam Constitutional: WD/WN, vitals as above Gastrointestinal (Abdomen): Inspection/Auscultation: + abdominal surgical incision (Healing well) Percussion/Palpation: + abdomen tender (Appropriately tender to palpation); no guarding and abdomen not rigid LIMA serosanguineous Results & Data Vital Signs (Past 12 Hours) Vital Signs Temp Pulse Pulse Pulse Resp BP Pulse Ox 02/18/25 11:26 37.5 C 76 20 121/55 L 91 02/18/25 08:53 18 93 02/18/25 08:17 82 02/18/25 07:45 36.5 C 79 17 134/58 L 89 L O2 Del Method O2 Flow Rate 02/18/25 11:26 Nasal Cannula 1 02/18/25 08:53 Nasal Cannula 3 02/18/25 08:17 02/18/25 07:45 Room Air Laboratory Results Laboratory Results - last 24 hr 02/15/25 02/17/25 02/17/25 23:05 12:14 16:32 WBC RBC Hgb Hct MCV MCH MCHC RDW Std Deviation RDW Coeff of Elsy Plt Count MPV Immature Gran % (Auto) Neut % (Auto) Lymph % (Auto) Placer % (Auto) Eos % (Auto) Baso % (Auto) Neut # (Auto) Lymph # (Auto) Placer # (Auto) Eos # (Auto) Baso # (Auto) Immature Gran # (Auto) APTT PTT Ratio Sodium Potassium Chloride Carbon Dioxide Anion Gap BUN Creatinine Est Cr Clr Drug Dosing eGFR BUN/Creatinine Ratio Glucose POC Glucose 136 H 143 H Calcium Magnesium Total Bilirubin AST ALT Alkaline Phosphatase Total Protein Albumin Globulin Albumin/Globulin Ratio Bld Cult ID Panel PCR PCR Panel Negative 02/17/25 02/18/25 02/18/25 20:01 05:14 07:21 WBC 6.06 RBC 2.87 L Hgb 8.7 L Hct 25.3 L MCV 88.2 MCH 30.3 MCHC 34.4 RDW Std Deviation 45.5 RDW Coeff of Elsy 14.2 Plt Count 162 MPV 10.8 Immature Gran % (Auto) 0.7 Neut % (Auto) 88.2 Lymph % (Auto) 3.5 Placer % (Auto) 5.6 Eos % (Auto) 1.8 Baso % (Auto) 0.2 Neut # (Auto) 5.35 Lymph # (Auto) 0.21 L Placer # (Auto) 0.34 Eos # (Auto) 0.11 Baso # (Auto) 0.01 Immature Gran # (Auto) 0.04 APTT 35 H PTT Ratio 1.3 Sodium 137 Potassium 3.2 L Chloride 100 Carbon Dioxide 25 Anion Gap 12 H BUN 38 H Creatinine 2.02 H Est Cr Clr Drug Dosing 42.8 eGFR 33.55 BUN/Creatinine Ratio 18.8 Glucose 117 H POC Glucose 132 H 141 H Calcium 8.7 Magnesium 2.1 Total Bilirubin 0.9 AST 21 ALT 10 Alkaline Phosphatase 71 Total Protein 6.0 Albumin 3.2 L Globulin 2.8 Albumin/Globulin Ratio 1.1 Bld Cult ID Panel PCR 02/18/25 11:56 WBC RBC Hgb Hct MCV MCH MCHC RDW Std Deviation RDW Coeff of Elsy Plt Count MPV Immature Gran % (Auto) Neut % (Auto) Lymph % (Auto) Placer % (Auto) Eos % (Auto) Baso % (Auto) Neut # (Auto) Lymph # (Auto) Placer # (Auto) Eos # (Auto) Baso # (Auto) Immature Gran # (Auto) APTT PTT Ratio Sodium Potassium Chloride Carbon Dioxide Anion Gap BUN Creatinine Est Cr Clr Drug Dosing eGFR BUN/Creatinine Ratio Glucose POC Glucose 108 H Calcium Magnesium Total Bilirubin AST ALT Alkaline Phosphatase Total Protein Albumin Globulin Albumin/Globulin Ratio Bld Cult ID Panel PCR PG Care Time/CCT Total # of Minutes Spent Total Time Spent with Patient: Total time spent is greater than 50% in coordination of care (as documented) at patient's floor/unit and/or counseling patient: Coding Level of Care Code 47257 Post Operative Follow-Up Diagnoses Status post laparoscopic appendectomy Z90.49 Acute perforated appendicitis K35.32
[2025-02-18] MEDS: FUROSEMIDE 40 MG/4 ML VIAL IV ONE (13:33)
--- NOTE | 2025-02-18 14:05 | Hospitalist Progress Note ---
Date of Service February 18, 2025 Assessment & Plan (1) Acute appendicitis: (2) Acute kidney injury: (3) Asymptomatic PVCs: Plan 74-year-old man admitted with severe sepsis due to perforated appendicitis with gram-negative bacteremia, FROILAN # Severe sepsis due to perforated appendicitis, present on admission. End organ dysfunction of FROILAN # perforated appendicitis with gross intraabdominal contamination s/p emergency lap appy early AM 02/[address] Caballero # gram-negative bacteremia, paraBacteroides bacteremia - this is an anaerobic gut commensal # Metabolic acidosis due to sepsis, FROILAN, metformin may contribute - sepsis and metabolic acidosis resolved -continue pip-tazo Probably 1 more day, add oral metronidazole for 10 days. this bacterium may be resistant to pip-tazo 75% of the time it is reliably sensitive to metronidazole - diet has been advanced to full liquids - postoperative care per general surgery, reviewed recommendations in their note # FROILAN on CKD, metabolic acidosis. Bilateral renal atrophy without obstruction on CTA abdomen - treated acidosis with sodium HCO3 IV and this has resolved - creatinine again worsened a little bit today from 1.8-2.0, continues to have good urine output - a.m. BMP # hypoxia due to acute pulmonary edema # hypokalemia new today lungs are clear on exam but he has accumulated some peripheral edema chest x-ray with some pulmonary edema and bilateral small effusions which is new - ordered Lasix 40 mg IV x 1 and potassium replacement with 40 mEq p.o. twice daily x 3 doses, a.m. BMP # myocardial demand ischemia due to sepsis present on admission with no evidence of acute coronary syndrome # Abnormal EKG - inferior ST flattening, ectopy with PVCs and ventricular trigemony on tele. Iliac atherosclerosis on CTA (no stenoses). Multiple cardiac risk factors # HTN # HLD - troponin became mildly elevated and downtrended - TTE 15104/18 was essentially normal no regional wall motion abnormalities -continue ASA and statin, metoprolol p.o. -hold amlodipine, ARB, HCTZ for sepsis/postop. currently normotensive - consider outpatient stress test # Diabetes type 2 - Hg A1c 6.2%, at goal -metformin held, not on insulin outpatient -continue premeal/PRN short acting insulin, goal BG 120-180 - reviewed blood glucoses today which are at goal # Lymphopenia - related to infection, resolved # incidental bilateral adrenal nodules noted on CT -outpatient follow up DVT ppx - SQ heparin bid Admission and Anticipated Discharge Date Admission Date: February 16, 2025 Subjective alia is definitely feeling better slowly now passing a lot of gas, abdominal pain improved currently does not have any pain at rest only when he gets up and moves around. He does not feel short of breath but was noted to have low oxygen saturation 88% on room air this morning and was placed on nasal cannula. No coughing no chest pain Physical Exam 2 Physical Exam: General Appearance: Awake, alert, oriented x4, sitting up in the chair Vital signs: Reviewed past 24h vital signs in EMR, unremarkable. HEENT: Within normal limits. Respiratory: Clear to auscultation bilaterally, no rhonchi, rales, or wheezes. diminished in bases. Distant Cardiovascular: Regular rhythm, no murmurs, rubs, or gallops. Gastrointestinal: mildly distended and tympanic active bowel sounds present no rebound tenderness tender to palpation right lower abdomen and surgical sites Extremities: warm and well-perfused my mild bilateral foot and ankle edema Skin: Warm, dry, no rashes. Neurological: AOx4, normal speech and mentation, delgadillo x 4. Psychiatric: Normal. Results & Data Results & Data Vital Signs (Past 12 Hours) Vital Signs Temp Pulse Pulse Pulse Resp BP Pulse Ox 02/18/25 11:26 37.5 C 76 20 121/55 L 91 02/18/25 08:53 18 93 02/18/25 08:17 82 02/18/25 07:45 36.5 C 79 17 134/58 L 89 L O2 Del Method O2 Flow Rate 02/18/25 11:26 Nasal Cannula 1 02/18/25 08:53 Nasal Cannula 3 02/18/25 08:17 02/18/25 07:45 Room Air Laboratory Results White blood count is 6 hemoglobin 8.7 which is decreased from 9.4 yesterday platelet count is normal sodium 137 potassium low at 3.2 BUN 38 creatinine 2.02 which is a mild increase from yesterday Albumin is 3.2 Microbiology paraBacteroides species in 1 bottle of 1 set of admission blood cultures there is a gram-negative tg and 1 bottle of the other set Diagnostic Findings chest x-ray: I personally reviewed the film and shows bilateral pulmonary edema and small pleural effusions which are new PG Care Time/CCT Total # of Minutes Spent Total Time Spent with Patient: Total time spent is greater than 50% in coordination of care (as documented) at patient's floor/unit and/or counseling patient: Coding Level of Care Code 52572 SUB INP/OBS CARE 3/50MIN Diagnoses Acute appendicitis K35.80 Acute appendicitis type: unspecified acute appendicitis type Acute kidney injury N17.9 Asymptomatic PVCs I49.3 (1) Acute appendicitis Acute appendicitis type: unspecified acute appendicitis type Qualified Code(s): K35.80 - Unspecified acute appendicitis
--- NOTE | 2025-02-18 16:11 | Discharge Summary ---
Discharge Summary Date of Service February 18, 2025 Principal Dx & Hospital Course #1 = Principal Diagnosis (1) Acute appendicitis: (2) Acute kidney injury: (3) Asymptomatic PVCs: Plan 74-year-old man admitted with severe sepsis due to perforated appendicitis with gram-negative bacteremia, FROILAN # Severe sepsis due to perforated appendicitis, present on admission. End organ dysfunction of FROILAN # perforated appendicitis with gross intraabdominal contamination s/p emergency lap appy early AM 02/[address] Caballero # gram-negative bacteremia: parabacteroides distasonis bacteremia - this is an anaerobic gut commensal # Metabolic acidosis due to sepsis, FROILAN - sepsis and metabolic acidosis resolved - treated with pip-tazo, metronidazole added when parabacteroides speciated - discussed antibiotic coverage with AMS team and surgery service - metronidazole to cover bacteremia (total 10d course), few more days of cefpodoxime for ruptured appenditicits Per surgery note: "home with faina drain, will be removed in office on Wednesday postop visit next week scheduled 02/28/25 will send rx for : Percocet prn pain oral cefpodoxime 400 mg BID for 2 days oral flagyl 500 mg BID x 7 days" # FROILAN with ATN on CKD, metabolic acidosis. Bilateral renal atrophy without obstruction on CTA abdomen - treated acidosis with sodium HCO3 IV and this has resolved - creatinine has now started to improve, good urine output - resume HCTZ and hold olmesartan one week - one week of potassium replacement for hypokalemia - recommend BMP on primary care follow up # hypoxia due to acute pulmonary edema - resolved after one dose of IV lasix. Has some LE edema. Instructed to take HCTZ daily until edema resolved # myocardial demand ischemia due to sepsis present on admission with no evidence of acute coronary syndrome # Abnormal EKG - inferior ST flattening, ectopy with PVCs and ventricular trigeminy on tele. Iliac atherosclerosis on CTA (no stenoses). Multiple cardiac risk factors # HTN # HLD - troponin became mildly elevated and downtrended - TTE 02/16 was essentially normal no regional wall motion abnormalities - continue ASA and statin, metoprolol p.o. - consider outpatient stress test when recovered from surgery # Diabetes type 2 - Hg A1c 6.2%, at goal -resume metformin # Lymphopenia - related to infection, resolved # incidental bilateral adrenal nodules noted on CT -he reports that these are not new and were evaluated previously - continue outpatient follow up Notes For Next Care Provider Perforated appendicitis s/p lap appy Parabacteroides bacteremia - completing course of metronidazole FROILAN resolving - rec BMP on follow up, resume ARB in a week Consider outpatient stress test Medication Changes From Visit cefpodoxime and metronidazole pain medicine hold olmesartan one week then resume HCTZ daily until LE edema resolved Potassium 20 meq daily x 1 week Admission HPI Per Admitting Provider The patient is a 74-year-old male past medical history including prostate cancer, mild anemia, L DDD/spinal stenosis with radiculopathy, obesity, CAD, diabetes mellitus, dyslipidemia, hypertension, sleep apnea, and generalized osteoarthritis of multiple sites. He presents to the emergency department with complaint of development of severe right lower quadrant pain, chills, that began around 7 PM this evening. He reports he was difficult to take a deep breath secondary to intensity of the pain. He denies any recent injury, recent travels. Workup in the emergency department included laboratories significant for elevated creatinine 1.45, magnesium 1.8, glucose 209. CT scan of abdomen pelvis was consistent with acute appendicitis. Patient received the following from the ED: Zosyn 4.5 g IV, normal saline 1 L bolus, morphine 4 mg IV, and Tylenol 1 g IV. Patient had continued pain and nausea, he was also seen by surgery Dr. Caballero in the emergency department, with plans to take the patient to the OR after admission by the medicine service. Discharge Exam General Appearance: Awake, alert, oriented x4, sitting up EOB Vital signs: Reviewed past 24h vital signs in EMR, unremarkable. HEENT: Within normal limits. Respiratory: CTAB a little diminished in bases, no rrw Cardiovascular: Regular rhythm, no murmurs, rubs, or gallops. no JVD Gastrointestinal: distention resolved, NABS Extremities: warm and well-perfused, 1+ foot and ankle edema - quite mild Skin: Warm, dry, no rashes. Neurological: AOx4, normal speech and mentation, delgadillo x 4. Psychiatric: Normal. Discharge Plan Discharge Items Patient Disposition: Home - Self-Care Reason For Visit: ACUTE APPENDICITIS, HTN, TACHYCARDIA Discharge Diagnosis: Sepsis due to perforated acute appendicitis, FROILAN Condition on Discharge: Good Activity: Per Instructions section Non-emergency contact: Primary Care Provider and Surgeon Call non-emergency contact if: you have any medication questions, your symptoms worsen and you have a fever Follow-up/Referrals: Ok Caballero MD [Physician] - 02/23/25 9:00 am (02/23/25 is a nurse visit for drain removal ) Varghese Ley MD [Primary Care Provider] - 03/06/25 10:30 am Diet: Carb Consistent or DM2 Addtl Attending Provider Instructions: You were treated for sepsis caused by perforated appendicitis, this also caused an acute kidney injury and heart strain You had appendectomy You were treated with antibiotics - complete the course of oral antibiotics Follow up with Dr. Caballero You can take a probiotic for 2-4 weeks to prevent antibiotic associated diarrhea. These are available over the counter. If you have rash or severe diarrhea after/while taking antibiotics, call your doctor. Diarrhea associated with broad spectrum antibiotics can occur up to six months following antibiotics. If you have significant ongoing diarrhea, especially with abdominal pain or fever, seek medical attention. Your kidney function has improved. Avoid NSAIDS (ibuprofen/motrin/advil or naproxen/aleve). Hold celecoxib, olmesartan for now. You can resume the olmesartan in a week. Follow up in primary care for repeat labs and to restart meds. You'll want to take the hydrochlorothiazide daily until the swelling goes away. I sent a week of potassium supplement to take with this. If 12.5 mg is ineffective, you can increase it to 25 mg daily. Keep your legs elevated and you can wear compression stockings as well. Call your doctor if you have a lot of leg swelling that is bothersome, you may need course of increased diuretics. Seek medical attention if you have shortness of breath or chest pain. You had some heart strain related to sepsis. Echocardiogram was normal. Consider an stress test as outpatient when you are recovered. There are bilateral adrenal nodules on your CT scan, we discussed this and sounds like they were evaluated previously. It was a pleasure taking care of you in the hospital, Massiel Gatica MD Addtl Household Refrigeration Mechanic Provider Instructions: Post-Surgical ~Discharge Instructions Activity Recommendations: - lifting limitation: (20 pounds for 2-3 weeks), - exercise/sex/sports limit: (nonstrenuous for 2-3 weeks), - driving or machine use limit: (none for 1 week or until pain free and no longer taking narcotic pain medication), - Shower/bathe limit: (may shower, no submerging incisions underwater(no bathing ,hot tubs ) for two weeks or until drain removed and site healed) Diet: - Resume previous diet SPECIAL CARE INSTRUCTIONS: - May shower. Let water run over area and pat dry. - Leave surgical glue on incisions this will fall off on its own. - You will go home with surgical drain, record output amount and color. Drain will be removed in office Wednesday02/23/25 at 9:00 am. - Call the surgeon's office with any questions or concerns - - (ex. temperature higher than 101 degrees F, excessive bleeding or pain). MEDICATIONS: - Resume previous medications unless instructed otherwise by your surgeon. - May alternate extra strength Tylenol and Ibuprofen as needed for pain - 650 mg Tylenol every 6 hours as needed - Ibuprofen 600 mg every 6 hours as needed (take with food) - Percocet 1 every 6 hours, as needed for moderate to severe pain - Can take daily stool softener (Colace) while taking narcotic pain medication to prevent constipation or straining. Drink plenty of water daily. - Take antibiotics for full entire course as directed. Cefpodoxime 400 mg tablet twice a day for 2 days Flagyl 500 mg tablet three times a day for 10 days FOLLOW UP VISIT: - You are scheduled for nurse visit on Wednesday02/23/2025 at 9:00 am for drain removal - You are scheduled for surgical postop visit on Wednesday02/28/25 at 1:[address] Caballero Office number Pending Studies at Discharge: No Stand-Alone Forms: My [facility] [employer], Smoking Cessation Medications and DC Order Prescriptions: New oxycodone-acetaminophen 5-325 mg tablet 1 tab PO Q6H PRN (Reason: pain) Qty: 10 0RF cefpodoxime 200 mg tablet 400 mg PO BID Qty: 8 0RF Rx Instructions: must administer with a meal/food metronidazole 500 mg tablet 500 mg PO BID 7 Days Qty: 14 0RF potassium chloride 20 mEq tablet extended release 20 meq PO DAILY Qty: 7 0RF Continued hydrochlorothiazide 12.5 mg tablet 12.5 mg PO DAILY PRN (Reason: as directed) vitamin E (dl, acetate) 180 mg (400 unit) capsule 180 mg PO DAILY ferrous sulfate 325 mg (65 mg iron) tablet 325 mg PO DAILY fenofibrate 54 mg tablet 54 mg PO QAM amoxicillin 500 mg capsule 2,000 mg PO UD Qty: 4 2RF Rx Instructions: TAKE 4 TABLETS 1 HOUR BEFORE DENTAL APPOINTMENT nitroglycerin 400 mcg/spray spray,non-aerosol 1 spray sublingual Q5M PRN (Reason: chest pain) Qty: 4.9 3RF Rx Instructions: do not exceed 3 doses per episode rosuvastatin 10 mg tablet 10 mg PO DAILY Qty: 90 3RF metoprolol tartrate 50 mg tablet 50 mg PO BID Qty: 180 3RF metformin 850 mg tablet 850 mg PO QPM Qty: 90 3RF aspirin 81 mg capsule 162 mg PO DAILY amlodipine 5 mg tablet 5 mg PO DAILY Qty: 90 3RF multivitamin Tablet 1 tab PO QAM ascorbic acid (vitamin C) [Vitamin C] 500 mg Tablet 500 mg PO QAM coQ10 (ubiquinol) 100 mg Capsule 100 mg PO QAM Held celecoxib [Celebrex] 200 mg capsule 200 mg PO DAILY PRN (Reason: pain) Qty: 30 2RF Hold Instructions: hold for now - your doctor can resume when kidney function returns to baseline olmesartan 40 mg tablet 40 mg PO DAILY Qty: 90 3RF Hold Instructions: Resume on 02/26/25. Discharge Orders: Discharge Order (Routine); Ordered 02/19/25 Ordered By: Massiel Loza/Other Patient Handouts: Managing Type 2 Diabetes Admission Data Admit Date/Time: 02/16/25 00:54 Attending Provider: Massiel Gatica Admit Provider: Chet Ramirez Primary Care Provider: Varghese Ley Other Providers: Chet Ramirez; Ok Caballero. Other Interventions: Discharge Summary Assessment (RN) Last Done: 02/19/25 13:41 Hospital Stay Data Consultations 02/15/25 23:48 ED Decision to Admit Stat 02/16/25 04:39 Consult General Surgery Routine Procedures Performed Operation Date: 02/16/25 02:30 Actual Procedures p Laparoscopic Appendectomy - Ok Caballero MD Diagnostic Imagining Performed 02/15/25 22:18 CT angio chest PE protocol Stat 02/15/25 22:30 CTA abdomen pelvis w con [CT angio abdomen pelvis w con] Stat Discharge Instructions Given to Patient (Per Discharging Provider) You were treated for sepsis caused by perforated appendicitis, this also caused an acute kidney injury and heart strain You had appendectomy You were treated with antibiotics - complete the course of oral antibiotics Follow up with Dr. Caballero You can take a probiotic for 2-4 weeks to prevent antibiotic associated diarrhea. These are available over the counter. If you have rash or severe diarrhea after/while taking antibiotics, call your doctor. Diarrhea associated with broad spectrum antibiotics can occur up to six months following antibiotics. If you have significant ongoing diarrhea, especially with abdominal pain or fever, seek medical attention. Your kidney function has improved. Avoid NSAIDS (ibuprofen/motrin/advil or naproxen/aleve). Hold celecoxib, olmesartan for now. You can resume the olmesartan in a week. Follow up in primary care for repeat labs and to restart meds. You'll want to take the hydrochlorothiazide daily until the swelling goes away. I sent a week of potassium supplement to take with this. If 12.5 mg is ineffective, you can increase it to 25 mg daily. Keep your legs elevated and you can wear compression stockings as well. Call your doctor if you have a lot of leg swelling that is bothersome, you may need course of increased diuretics. Seek medical attention if you have shortness of breath or chest pain. You had some heart strain related to sepsis. Echocardiogram was normal. Consider an stress test as outpatient when you are recovered. There are bilateral adrenal nodules on your CT scan, we discussed this and sounds like they were evaluated previously. It was a pleasure taking care of you in the hospital, Massiel Gatica MD Total Time Total Time Spent Total Time Spent (In Minutes): I personally spent: 50 minutes today on clinical care activities including: reviewing chart notes and vital signs reviewing labs discussion with customer support consultant(s) examining and counseling the patient counseling the patient's family writing orders writing prescriptions, discharge instructions documentation Coding Level of Care Code 99127 INP/OBS DISCH >30 MIN Diagnoses Acute appendicitis K35.80 Acute appendicitis type: unspecified acute appendicitis type Acute kidney injury N17.9 Asymptomatic PVCs I49.3
[2025-02-18] MEDS: metroNIDAZOLE 500 MG TAB PO SCH (17:28)
[2025-02-19 06:50] LABS: Magnesium 2.2 mg/dl (1.7-2.4)
[2025-02-19 07:04] LABS: Partial Thromboplastin Time 31 Seconds (21-31)
[2025-02-19] MEDS: ROSUVASTATIN CALCIUM 10 MG TAB PO SCH (08:53)
[2025-02-19] MEDS: ASPIRIN 81 MG ECTAB PO SCH (08:53)
[2025-02-19] MEDS: metroNIDAZOLE 500 MG TAB PO SCH (08:54)
[2025-02-19] MEDS: hydroCHLOROthiazide 25 MG TAB PO SCH (08:54)
[2025-02-19 10:55] VITALS: BP 147/64; RESP 19; TEMP 98.1; O2SAT 91
--- NOTE | 2025-02-19 11:53 | Surgery Progress Note ---
Date of Service February 19, 2025 Assessment & Plan (1) Acute perforated appendicitis: Plan POD # 3 s/p laparoscopic appendectomy for perforated appendicitis avss drain with serous drainage no chest pain or shortness of breath pain controlled Plan: Okay for discharge from surgery perspective discharge instructions reviewed home with faina drain, will be removed in office on Wednesday postop visit next week scheduled 02/28/25 will send rx for : Percocet prn pain oral cefpodoxime 400 mg BID for 2 days oral flagyl 500 mg BID x [address] Caballero has seen and examined patient Admission and Anticipated Discharge Date Admission Date: February 16, 2025 Subjective feeling good pain continues to improve no n,v tolerating diet no fevers or chills drain clearing up Physical Exam Constitutional: WD/WN, vitals as above cooperative and comfortable; no acute distress, not ill appearing and not in distress Respiratory: normal respiratory effort; no respiratory distress, no labored breathing and no retractions Gastrointestinal (Abdomen): Inspection/Auscultation: abdomen normal to inspection, + abdominal surgical incision (c/d/i with dermabond) and + abdominal surgical drain present (serous); abdomen not distended Percussion/Palpation: abdomen soft; abdomen nontender, no guarding, abdomen not rigid and abdomen not firm Skin: no rashes, warm and dry Psychiatric: Orientation: alert and oriented x 3 Results & Data Vital Signs (Past 12 Hours) Vital Signs Temp Pulse Pulse Resp BP Pulse Ox O2 Del Method 02/19/25 10:53 36.7 C 69 19 147/64 H 91 Room Air 02/19/25 08:04 73 02/19/25 07:29 36.9 C 76 20 163/79 H 93 Room Air 02/19/25 03:05 37.3 C 81 18 136/60 93 Room Air Laboratory Results 02/19/25 02/19/25 02/18/25 Range/Units 07:55 06:08 19:58 APTT 31 (21-31) Seconds PTT Ratio 1.1 POC Glucose 145 H 175 H (70-99) mg/dl Magnesium 2.2 (1.7-2.4) mg/dl 02/18/25 02/18/25 Range/Units 17:08 11:56 APTT (21-31) Seconds PTT Ratio POC Glucose 122 H 108 H (70-99) mg/dl Magnesium (1.7-2.4) mg/dl
[2025-02-19 13:24] LABS: Anion Gap 12.0 (3-11); Calcium 8.9 mg/dl (8.6-10.3); Carbon Dioxide 24.0 mmol/L (21-32); Chloride 103.0 mmol/L (98-107); Potassium 3.4 mmol/L (3.5-5.1); Sodium 139.0 mmol/L (136-145)
[2025-02-19 13:29] LABS: Blood Urea Nitrogen 37.0 mg/dl (6-23); Creatinine Clr Calc Pharmacy 49.0 ml/min; Glucose 128.0 mg/dl (70-99(Fasting))
[2025-02-19 13:43] VITALS: PULSE 76
== END 2025-02-19 17:20 | disposition home or self-care (01) | DRG 853 ==
LOC: ED 21:47 → SUATTDRO 02-16 00:54 → OR 02-16 02:02 → 4W 02-16 02:05
DX: I24.89 Other forms of acute ischemic heart disease; R78.81 Bacteremia; R79.89 Other specified abnormal findings of blood chemistry; E66.9 Obesity, unspecified; N18.9 Chronic kidney disease, unspecified; Z95.2 Presence of prosthetic heart valve; I49.3 Ventricular premature depolarization; R09.02 Hypoxemia; N17.9 Acute kidney failure, unspecified; R65.20 Severe sepsis without septic shock; K35.32 Acute appendicitis with perforation, localized peritonitis, and gangrene, without abscess; E08.22 Diabetes mellitus due to underlying condition with diabetic chronic kidney disease; M51.369 Other intervertebral disc degeneration, lumbar region without mention of lumbar back pain or lower extremity pain; J81.0 Acute pulmonary edema; N17.0 Acute kidney failure with tubular necrosis; M48.061 Spinal stenosis, lumbar region without neurogenic claudication; D72.810 Lymphocytopenia; I70.8 Atherosclerosis of other arteries; Z85.46 Personal history of malignant neoplasm of prostate; B96.89 Other specified bacterial agents as the cause of diseases classified elsewhere; Z79.899 Other long term (current) drug therapy; I25.10 Atherosclerotic heart disease of native coronary artery without angina pectoris; A41.59 Other Gram-negative sepsis; G47.30 Sleep apnea, unspecified; Z96.642 Presence of left artificial hip joint; D64.9 Anemia, unspecified; Z79.84 Long term (current) use of oral hypoglycemic drugs; Z79.82 Long term (current) use of aspirin; E87.20 Acidosis, unspecified; E78.5 Hyperlipidemia, unspecified; E87.6 Hypokalemia; I13.10 Hypertensive heart and chronic kidney disease without heart failure, with stage 1 through stage 4 chronic kidney disease, or unspecified chronic kidney disease; M15.9 Polyosteoarthritis, unspecified; Z95.5 Presence of coronary angioplasty implant and graft; E27.9 Disorder of adrenal gland, unspecified; Z68.30 Body mass index [BMI] 30.0-30.9, adult

== ENCOUNTER 2025-03-07 22:43 | Observation (INO) ==
--- NOTE | 2025-03-07 22:57 | Emergency Department Note ---
Impression & Plan Small bowel obstruction, Nausea & vomiting ED Provider Note CHIEF COMPLAINT: Abdominal pain HISTORY OF PRESENTING ILLNESS: This 74-year-old male patient presents to the emergency department with his for evaluation of bilateral lower abdominal pain that began this afternoon. The patient is also having nausea, vomiting, and diarrhea that started yesterday. He has continued with the nausea and vomiting and has not really been able to eat or drink anything. No fevers at home. He denies any urinary symptoms. The patient took oxycodone at 7 PM without improvement of his symptoms. The patient had an appendectomy 3 weeks ago. The patient was admitted 03/02/2025 until 03/04/2025 for a small bowel obstruction postoperatively. The patient had finished a course of cefpodoxime and metronidazole after the ruptured appendicitis and appendectomy. The patient's small bowel obstruction resolved with bowel rest and he did not require an NG tube. REVIEW OF SYSTEMS: See HPI for pertinent positives and pertinent negatives. ALLERGIES: Pollen MEDICATIONS: See below PAST MEDICAL HISTORY: See below PHYSICAL EXAM: VITALS: Vitals are noted on the nurse's note and reviewed by myself. GENERAL: Non toxic, in no acute distress, non-diaphoretic. SKIN: Capillary refill <2 sec. EYES: PERRLA. EOMI. Conjunctivae without injection, sclerae without icterus. NOSE: Patent without discharge. MOUTH: Mucous membranes moist. Uvula midline. Airway patent. NECK: Supple without nuchal rigidity. HEART: Regular rate and rhythm without murmurs gallops or rubs. LUNGS: Clear to auscultation bilaterally without wheezes, rales or rhonchi. No retractions or accessory muscle use. ABDOMEN: Bowel sounds are present, but decreased. Mild abdominal distention, but the abdomen is still soft. Mild diffuse tenderness to palpation. No masses or hepatosplenomegaly. Wren sign negative. No CVA tenderness. No guarding, rigidity, or rebound tenderness. No focal RLQ or LLQ tenderness. MUSCULOSKELETAL: No gross musculoskeletal defects. NEURO: Patient was alert and oriented. No focal neurological deficits. DIFFERENTIAL DIAGNOSIS: Differential diagnosis includes hepatitis, pancreatitis, cholecystitis, cholelithiasis, appendicitis, kidney stone, pyelonephritis, UTI, gastritis, gastroenteritis, mesenteric adenitis, obstruction, constipation, hernia, abdominal abscess, perforation, diverticulitis, IBD, ischemic colitis, abdominal aortic aneurysm, testicular torsion, prostatitis, or others. ED COURSE AND MEDICAL DECISION MAKING: HISTORY FROM INDEPENDENT HISTORIAN: Additional history obtained from the patient's MEDICATIONS GIVEN: 500 mL normal saline solution bolus. Tylenol 1000 mg IV and Zofran 4 mg IV. Morphine 2 mg IV and Pepcid 20 mg IV. MONITOR: Continuous school lunch monitor: Order was placed for continuous school lunch monitor. Patient was placed on the school lunch monitor and continuous pulse ox. Patient was noted to be in normal sinus rhythm at an initial rate of 90 bpm per my interpretation. EKG: EKG was interpreted by myself as normal sinus rhythm at 83 bpm with no acute ST or T wave changes. INTERPRETATION OF LABS: I interpreted the labs with full lab results as below in the lab section of this note. Laboratory results pertinent to the emergent complaint are discussed in the MDM section below. The patient was advised to follow up with their PCP and/or specialist(s) for further outpatient monitoring and management of any abnormal results. INTERPRETATION OF IMAGING: Imaging studies were interpreted by myself and read by radiology as per the imaging section of this note. The patient was advised to follow up with their PCP and/or specialist(s) for further outpatient management of any non-emergent abnormal findings. Chest x-ray shows poor inspiratory effort with some atelectasis in the right base. CT scan of the abdomen and pelvis with IV contrast shows a status post appendectomy status. There is re-demonstration of inflammatory changes in the right iliac fossa region at the operative bed with circumferential mural thickening and a few small bowel loops. Mild progressive course of the previously noted multiple dilated small bowel loops in the abdomen showing air-fluid levels with an interval increase in caliber measuring 46 mm at present study in contrast to 36 mm on the prior study. The transition point is in the right iliac fossa region. The findings represent progressive acute small bowel ileusobstruction likely due to postsurgical inflammatory changes. Near complete resolution of the perihepatic fluid at the present study. Stable gallbladder sludge. Unchanged bilateral suprarenal heterogeneously enhancing lesions. EXTERNAL RECORDS REVIEWED: I reviewed the patient's most recent admission note as summarized above. CONSULTATIONS: On-call hospitalist MDM SUMMARY: I examined the patient. The patient had a recent appendectomy as well as recent admission for ileus/small bowel obstruction. The patient had been feeling well since his last admission until last evening when he started with nausea and vomiting again. Today he has continued nausea and vomiting along with abdominal pain and diarrhea. An IV lock was placed and labs were drawn. The patient was given a 500 mL normal saline solution bolus. He was given Tylenol 1000 mg IV, Zofran 4 mg IV, morphine 2 mg IV, and Pepcid 20 mg IV with improvement of his symptoms. White blood cell count low at 3.21. Hemoglobin low, but improved to 10.5. Platelet count normal at 295. Coags are normal. Anion gap elevated at 13. Creatinine elevated at 1.52 and BUN elevated at 32. Glucose 177 with the remainder of the CMP without concerning abnormalities. Lactate and procalcitonin are normal. Magnesium normal. High-sensitivity troponin normal. Lipase normal. Urinalysis without evidence for UTI, but does show trace ketones. Chest x-ray shows poor inspiratory effort with some atelectasis in the right base. CT scan of the abdomen and pelvis with IV contrast shows a status post appendectomy status. There is re-demonstration of inflammatory changes in the right iliac fossa region at the operative bed with circumferential mural thickening and a few small bowel loops. Mild progressive course of the previously noted multiple dilated small bowel loops in the abdomen showing air- fluid levels with an interval increase in caliber measuring 46 mm at present study in contrast to 36 mm on the prior study. The transition point is in the right iliac fossa region. The findings represent progressive acute small bowel ileusobstruction likely due to postsurgical inflammatory changes. Near complete resolution of the perihepatic fluid at the present study. Stable gallbladder sludge. Unchanged bilateral suprarenal heterogeneously enhancing lesions. The patient's nausea and vomiting is well-controlled at this time and I do not feel NG tube is needed. I had a meaningful discussion about this patient with Dr. Rodriguez who agrees with my assessment and the treatment plan. The patient will require admission due to the worsening small bowel ileusobstruction. I spoke with the on-call hospitalist who agreed to admit the patient for further evaluation and treatment. Please refer to their dictation for further details. The patient's care was transferred in stable condition. 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, 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 Lumbar spinal stenosis Myalgia History of colon polyps Obesity (BMI 30.0-34.9) Skin change Chronic constipation Acid reflux (Acute) CAD (coronary artery disease) (Acute) F/U DR GIGI PERKINS Diabetes mellitus (Acute) Dyslipidemia (Acute) Generalized osteoarthritis of multiple sites (Acute) Hypertension (Acute) Legg-Perthes disease (Acute) Lower back pain (Acute) Sleep apnea (Acute) USES NO DEVICE Tubular adenoma (Acute) Medical History Elevated PSA Encounter for pre-operative examination GERD (gastroesophageal reflux disease) Allergic rhinitis History of colon polyps Osteoarthritis Borderline diabetes mellitus Hypertension Hyperlipidemia Surgical History History of tonsillectomy and adenoidectomy S/P trigger finger release R/L HAND History of total hip arthroplasty LEFT History of colonoscopy X 2 History of cardiac cath 10 years ago. [facility]. cp. --> [place]. follows w/ dr. perkins. History of coronary artery bypass graft 3 vessels. 10 years ago. [facility] [place]. follows verónica/ dr. 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: No Beliefs That Will Affect Care: None marital status: Current Living Situation: Spouse Current Living Situation Comment: one story home with one dog current occupational status: employed 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 Feels Safe at Home: Yes Diet: regular during the past year weight has: remained stable Dental Care, Regularly: Yes Physical Activity Frequency Comment: yardwork and very active Seatbelt Use: always Sunscreen Use: No Assistive Devices: Glasses Allergies Allergies Allergy/AdvReac Type Severity Reaction Status Date / Time pollen extracts Allergy Intermediate ITCHY Verified 03/08/25 00:01 EYES, SNEEZING Home Meds Home Medications Medication Instructions Recorded Confirmed ascorbic acid (vitamin C) 500 mg 500 mg PO QAM 02/21/18 03/08/25 tablet (Vitamin C) coQ10 (ubiquinol) 100 mg capsule 100 mg PO QAM 02/21/18 03/08/25 multivitamin 1 tab PO QAM 02/21/18 03/08/25 aspirin 81 mg capsule 162 mg PO DAILY 11/02/23 03/08/25 vitamin E (dl, acetate) 180 mg 180 mg PO DAILY 07/24/24 03/08/25 (400 unit) capsule fenofibrate 54 mg tablet 54 mg PO QAM 10/18/24 03/08/25 hydrochlorothiazide 12.5 mg tablet 12.5 mg PO DAILY PRN as directed 11/29/24 03/08/25 amoxicillin 500 mg capsule 2,000 mg PO DIRECTED PRN 1 HR 03/02/25 03/08/25 PRIOR TO DENTAL PROCEDURES Previous Rx's Medication Instructions Recorded nitroglycerin 400 mcg/spray 1 spray sublingual Q5M PRN chest 01/02/22 translingual pain #4.9 grams celecoxib 200 mg capsule (Celebrex) 200 mg PO DAILY PRN pain #30 caps 06/20/24 rosuvastatin 10 mg tablet 10 mg PO DAILY #90 tabs 08/21/24 amlodipine 5 mg tablet 5 mg PO DAILY #90 tabs 08/22/24 olmesartan 40 mg tablet 40 mg PO DAILY #90 tabs 09/22/24 metformin 850 mg tablet 850 mg PO QPM #90 tabs 11/15/24 metoprolol tartrate 50 mg tablet 50 mg PO BID #180 tabs 11/15/24 ferrous sulfate 325 mg (65 mg 325 mg PO Q48H #0 tabs 03/04/25 iron) tablet Results & Data (ED) Vital Signs Vital Signs - 24 hr 03/07/25 22:46 03/07/25 22:59 03/07/25 23:00 Temperature 35.6 C L Temperature Source Temporal Artery Scan Pulse Rate 110 H 91 H 91 H Pulse Rate [Apical] Respiratory Rate 18 24 Respiratory Effort / Characteristics Non-Labored Spontaneous Respiratory Depth Normal Respiratory Pattern Regular Blood Pressure 110/65 149/70 H Blood Pressure [Right Arm] Blood Pressure Mean 80 96 Blood Pressure Mean [Right Arm] Blood Pressure Position Sitting Pulse Oximetry 96 93 Oxygen Delivery Method Room Air Sepsis Recent Fever Within 48 Hours No Sepsis New/Unexplained Change in Mental Status No Sepsis Action Taken by Nursing No Action Required 03/07/25 23:13 03/08/25 00:00 03/08/25 00:47 Temperature Temperature Source Pulse Rate 88 76 Pulse Rate [Apical] 72 Respiratory Rate 18 24 19 Respiratory Effort / Characteristics Non-Labored Spontaneous Respiratory Depth Normal Respiratory Pattern Regular Blood Pressure 155/75 H Blood Pressure [Right Arm] 156/70 H Blood Pressure Mean 101 Blood Pressure Mean [Right Arm] 98 Blood Pressure Position Pulse Oximetry 94 94 93 Oxygen Delivery Method Room Air Room Air Sepsis Recent Fever Within 48 Hours Sepsis New/Unexplained Change in Mental Status Sepsis Action Taken by Nursing 03/08/25 01:40 Temperature Temperature Source Pulse Rate Pulse Rate [Apical] 73 Respiratory Rate 15 Respiratory Effort / Characteristics Non-Labored Spontaneous Respiratory Depth Normal Respiratory Pattern Regular Blood Pressure Blood Pressure [Right Arm] 133/83 Blood Pressure Mean Blood Pressure Mean [Right Arm] 99 Blood Pressure Position Pulse Oximetry 95 Oxygen Delivery Method Room Air Sepsis Recent Fever Within 48 Hours Sepsis New/Unexplained Change in Mental Status Sepsis Action Taken by Nursing Laboratory Data 03/07/25 23:06 03/07/25 23:06 Lab Results 03/07/25 03/08/25 Range/Units 23:06 01:47 WBC 3.21 L (4.8-10.8) K/ul RBC 3.58 L (4.70-6.10) M/uL Hgb 10.5 L (14.0-18.0) g/dL Hct 32.0 L (42.0-52.0) % MCV 89.4 (80.0-100.0) fL MCH 29.3 (25.0-34.0) pg MCHC 32.8 (32.0-36.0) g/dL RDW Std Deviation 47.5 H (36.4-46.3) fL RDW Coeff of Elsy 14.5 (11.5-14.5) % Plt Count 295 (130-400) K/uL MPV 10.0 (9.4-12.4) fL Immature Gran % (Auto) 0.3 % Neut % (Auto) 73.3 % Lymph % (Auto) 8.4 % [place] % (Auto) 16.8 % Eos % (Auto) 0.9 % Baso % (Auto) 0.3 % Neut # (Auto) 2.35 (1.40-6.50) K/uL Lymph # (Auto) 0.27 L (1.20-3.40) K/uL [place] # (Auto) 0.54 (0.11-0.59) K/uL Eos # (Auto) 0.03 (0.00-0.50) K/uL Baso # (Auto) 0.01 (0.00-0.20) K/uL Immature Gran # (Auto) 0.01 (0.01-0.20) K/uL PT 11.4 (9.0-12.0) Seconds INR 1.1 (0.9-1.1) APTT 27 (21-31) Seconds PTT Ratio 1.0 Sodium 137 (136-145) mmol/L Potassium 4.1 (3.5-5.1) mmol/L Chloride 103 (98-107) mmol/L Carbon Dioxide 21 (21-32) mmol/L Anion Gap 13 H (3-11) BUN 32 H (6-23) mg/dl Creatinine 1.52 H (0.6-1.4) mg/dl Est Cr Clr Drug Dosing Not Reportable eGFR 47.19 BUN/Creatinine Ratio 21.1 H (10-20) Glucose 177 H (70-99(Fasting)) mg/dl Lactate 1.5 (0.4-2.0) mmol/L Calcium 9.2 (8.6-10.3) mg/dl Magnesium 2.1 (1.7-2.4) mg/dl Total Bilirubin 0.6 (0.2-1.0) mg/dl AST 14 (13-39) U/L ALT 10 (7-52) U/L Alkaline Phosphatase 72 (34-104) U/L Troponin I High Sens 7.9 (0-20) pg/ml Total Protein 7.6 (6.0-8.3) gm/dl Albumin 4.0 (3.4-5.0) gm/dl Globulin 3.6 (2.5-4.0) gm/dl Albumin/Globulin Ratio 1.1 (0.9-2) Lipase 44 (11-82) U/L Procalcitonin 0.19 (0-0.5) ng/ml Urine Color Yellow Urine Appearance Clear (Clear) Urine pH 5.0 (4.5-7.5) Ur Specific [place] > 1.045 H (1.000-1.030) Urine Protein Trace H (Negative) Urine Glucose (UA) Negative (Negative) Urine Ketones Trace H (Negative) Urine Blood Negative (Negative) Urine Nitrite Negative (Negative) Urine Bilirubin Negative (Negative) Urine Urobilinogen Negative (Negative) Ur Leukocyte Esterase Negative (Negative) Urine WBC (Auto) 0-5 (0-5) /hpf Urine RBC (Auto) 0-2 (0-2) /hpf U Hyaline Cast (Auto) 11-20 H (0-2) /lpf U Epithel Cells (Auto) 0-2 (0-2) /hpf Urine Bacteria (Auto) None Seen (None Seen) Hyaline Casts Present A (None Presnt) /lpf Urine Comment Administered Medications Lactated Ringer's (Lr) 1,000 mls @ 125 mls/hr IV .Q8H JOE Stop: 03/08/25 18:52 Last Admin: 03/08/25 03:52 Dose: 125 mls/hr Documented By: EFK Discontinued Medications Sodium Chloride (Nss) 500 mls @ 999 mls/hr IV .Q31M ONE Stop: 03/07/25 23:34 Last Infusion: 03/08/25 01:42 Dose: Infused Documented By: jaye Admin: 03/07/25 23:32 Dose: 999 mls/hr Documented By: SKYLA Acetaminophen (Ofirmev) 1,000 mg in 100 mls @ 400 mls/hr IV NOW STA Stop: 03/07/25 23:18 Last Infusion: 03/07/25 23:50 Dose: Infused Documented By: cad Admin: 03/07/25 23:32 Dose: 400 mls/hr Documented By: SKYLA Famotidine (Pepcid 20mg Iv Push) 20 mg in 5 mls @ 2.5 mls/min IV NOW STA Stop: 03/08/25 01:20 Last Admin: 03/08/25 01:41 Dose: 2.5 mls/min Documented By: jaye Ioversol (Optiray 320 100ml) 93 ml IV ONCE ONE Stop: 03/08/25 00:32 Last Admin: 03/08/25 00:31 Dose: 93 ml Documented By: DICKSON Miscellaneous (Patient's Height &/Or Weight Needed) 1 each N/A Q2H STA Stop: 03/08/25 03:07 Last Admin: 03/08/25 03:56 Dose: 1 each Documented By: CHRISTOPHER Morphine Sulfate (Morphine Sulfate 2 Mg/Ml Carp) 2 mg IV NOW STA Stop: 03/08/25 01:20 Last Admin: 03/08/25 01:41 Dose: 2 mg Documented By: jaye Ondansetron HCl (Ondansetron Inj 2 Mg/Ml 2 Ml Vial) 4 mg IV NOW STA Stop: 03/07/25 23:05 Last Admin: 03/07/25 23:32 Dose: 4 mg Documented By: [facility] Imaging Data Radiologist's Impression: Abdomen/Pelvis CT 03/07/25 23:04 EXAM: CT abd pelvis IV con only CLINICAL HISTORY: Abd pain, vomiting, recent appy + SBO. TECHNIQUE: CT of the abdomen and pelvis was performed, with the following protocol: axial images, and reconstructed coronal and sagittal images. 93cc Optiray 320 Intravenous contrast was administered. One of the following dose reduction techniques was utilized for this exam: Automated exposure control, adjustment of the mA and/or kV according to patient size, and use of iterative reconstruction. COMPARISON: 03/02/2025 CT. FINDINGS: Sections of lower thorax show mild basal atelectatic changes. Abdomen: Gastrointestinal tract: Post appendicectomy status. Redemonstration of inflammatory changes in right iliac fossa region at the operative bed with circumferential mural thickening of a few small bowel loops. Minimal free fluid in right iliac fossa region. Redemonstration of multiple dilated small bowel loops in the abdomen with an interval increase in caliber, measuring 46 mm at present study in contrast to 36 mm on prior study with transition point in right iliac fossa region. The findings likely represent progressive acute small bowel ileus - obstruction, likely due to postsurgical inflammatory changes. Uncomplicated colonic diverticulosis again noted. Liver: Normal in size and density. No focal lesions, cysts, or masses were identified. Gallbladder and Biliary System: The gallbladder is distended and shows faint hyperdense sludge. Pancreas: Pancreatic parenchymal atrophy is noted. Spleen: Normal in size, shape, and density. No splenic lesions or masses were identified. Kidneys and Adrenal Glands: Mild bilateral perinephric fat stranding is noted. Both kidneys are normal in size. No renal calculi or hydronephrosis. Bilateral small renal cortical cysts. Tiny calcific focus at the upper pole of left kidney appears to be vascular calcification. Bilateral suprarenal heterogeneously enhancing lesions, measuring 28 mm on the right side and 14 mm on the left side. Unchanged. Pelvis: Limited evaluation due to streak artifacts from left hip prosthetic hardware. Urinary Bladder: Mildly distended. Prostate appears unremarkable. Peritoneal and Retroperitoneal Structures: Near complete resolution of perihepatic fluid at present study. The abdominal aorta and its branches show atherosclerotic changes with calcified plaques. Bones and Soft Tissues: Post left hip replacement status. Advanced degenerative changes in lumbar spine. Small umbilical hernia containing omental fat. IMPRESSION: 1. Post appendicectomy status. 2. Redemonstration of inflammatory changes in right iliac fossa region at the operative bed with circumferential mural thickening of a few small bowel loops. 3. Mild progressive course of the previously noted multiple dilated small bowel loops in the abdomen, showing air-fluid levels with an interval increase in caliber, measuring 46 mm at present study in contrast to 36 mm on prior study with transition point in right iliac fossa region. The findings represent progressive acute small bowel ileus - obstruction, likely due to postsurgical inflammatory changes. 4. Near complete resolution of perihepatic fluid at present study. 5. Gallbladder sludge, stable. 6. Bilateral suprarenal heterogeneously enhancing lesions, measuring 28 mm on the right side and 14 mm on the left side. Unchanged. Electronically signed by Tomas Calle 03-08-2025 01:30 AM Chest X-Ray 03/07/25 23:04 Exam(s): XR CXR 1 VIEW EXAM: XR Chest, 1 View CLINICAL HISTORY: Reason for exam: Abd pain, vomiting. TECHNIQUE: Frontal view of the chest. COMPARISON: 02/18/2025. FINDINGS: There is a poor inspiratory effort. Lungs: There is some atelectasis at the right lung base.. Pleural space: No pleural effusion is seen. No pneumothorax. Heart: Patient is status post midline sternotomy. The heart is normal in size.. Mediastinum: There is mild uncoiling of thoracic aorta.. Bones/joints: There are degenerative changes in the spine.. IMPRESSION: Poor inspiratory effort. There is some atelectasis at the right lung base. Electronically signed by: Anthony Newman MD 03/08/25 01:01 AM Discharge Plan Visit Data Chief Complaint: Abdominal Pain Stated Complaint: LOWER BOWEL PAIN, DIARRHEA, VOMITING, RECHECK ED Provider: Joss Rodriguez ED Midlevel Provider: Dana Lazar Discharge Problem: Small bowel obstruction, Nausea & vomiting Patient Disposition: Admitted As Inpatient Condition: Fair Discharge Instructions Interventions: ED Discharge Assessment Last Done: 03/08/25 02:19 Discharge Problem: Nausea & vomiting Qualifiers: Vomiting type: unspecified Qualified Code(s): R11.2 - Nausea with vomiting, unspecified
[2025-03-07 23:31] LABS: Hematocrit (blood only) 32.0 % (42.0-52.0); Hemoglobin 10.5 g/dL (14.0-18.0); Immature Granulocytes # (auto) 0.01 K/uL (0.01-0.20); Immature Granulocytes % (auto) 0.3 %; Mean Corpuscular Hemoglobin 29.3 pg (25.0-34.0); Mean Corpuscular Volume 89.4 fL (80.0-100.0); Platelet Count 295 K/uL (130-400); RDW Standard Deviation 47.5 fL (36.4-46.3); Red Blood Count 3.58 M/uL (4.70-6.10); White Blood Count 3.21 K/ul (4.8-10.8)
[2025-03-07] MEDS: SODIUM CHLORIDE 0.9% 500 ML IV ONE (23:32)
[2025-03-07] MEDS: ACETAMINOPHEN 1,000 MG/100 ML VIAL IV STA (23:32)
[2025-03-07] MEDS: ONDANSETRON INJ 2 MG/ML 2 ML VIAL IV STA (23:32)
[2025-03-07 23:52] LABS: Alanine Aminotransferase 10 U/L (7-52); Albumin Globulin Ratio 1.1 (0.9-2); Albumin Level 4.0 gm/dl (3.4-5.0); Alkaline Phosphatase 72 U/L (34-104); Anion Gap 13 (3-11); Bilirubin,Total 0.6 mg/dl (0.2-1.0); Blood Urea Nitrogen 32 mg/dl (6-23); Calcium 9.2 mg/dl (8.6-10.3); Carbon Dioxide 21 mmol/L (21-32); Chloride 103 mmol/L (98-107); Globulin 3.6 gm/dl (2.5-4.0); Glucose 177 mg/dl (70-99(Fasting)); Lipase 44 U/L (11-82); Magnesium 2.1 mg/dl (1.7-2.4); Potassium 4.1 mmol/L (3.5-5.1); Sodium 137 mmol/L (136-145); Total Protein 7.6 gm/dl (6.0-8.3)
[2025-03-08 00:12] LABS: INR 1.1 (0.9-1.1); Partial Thromboplastin Time 27 Seconds (21-31); Prothrombin Time 11.4 Seconds (9.0-12.0)
[2025-03-08] MEDS: OPTIRAY 320 100ml IV ONE (00:31)
--- NOTE | 2025-03-08 01:02 | XRay Report ---
Exam(s): XR CXR 1 VIEW EXAM: XR Chest, 1 View CLINICAL HISTORY: Reason for exam: Abd pain, vomiting. TECHNIQUE: Frontal view of the chest. COMPARISON: 02/18/2025. FINDINGS: There is a poor inspiratory effort. Lungs: There is some atelectasis at the right lung base.. Pleural space: No pleural effusion is seen. No pneumothorax. Heart: Patient is status post midline sternotomy. The heart is normal in size.. Mediastinum: There is mild uncoiling of thoracic aorta.. Bones/joints: There are degenerative changes in the spine.. IMPRESSION: Poor inspiratory effort. There is some atelectasis at the right lung base. Electronically signed by: Anthony Newman MD 03/08/25 01:01 AM
--- NOTE | 2025-03-08 01:31 | CT Scan Report ---
EXAM: CT abd pelvis IV con only CLINICAL HISTORY: Abd pain, vomiting, recent appy + SBO. TECHNIQUE: CT of the abdomen and pelvis was performed, with the following protocol: axial images, and reconstructed coronal and sagittal images. 93cc Optiray 320 Intravenous contrast was administered. One of the following dose reduction techniques was utilized for this exam: Automated exposure control, adjustment of the mA and/or kV according to patient size, and use of iterative reconstruction. COMPARISON: 03/02/2025 CT. FINDINGS: Sections of lower thorax show mild basal atelectatic changes. Abdomen: Gastrointestinal tract: Post appendicectomy status. Redemonstration of inflammatory changes in right iliac fossa region at the operative bed with circumferential mural thickening of a few small bowel loops. Minimal free fluid in right iliac fossa region. Redemonstration of multiple dilated small bowel loops in the abdomen with an interval increase in caliber, measuring 46 mm at present study in contrast to 36 mm on prior study with transition point in right iliac fossa region. The findings likely represent progressive acute small bowel ileus - obstruction, likely due to postsurgical inflammatory changes. Uncomplicated colonic diverticulosis again noted. Liver: Normal in size and density. No focal lesions, cysts, or masses were identified. Gallbladder and Biliary System: The gallbladder is distended and shows faint hyperdense sludge. Pancreas: Pancreatic parenchymal atrophy is noted. Spleen: Normal in size, shape, and density. No splenic lesions or masses were identified. Kidneys and Adrenal Glands: Mild bilateral perinephric fat stranding is noted. Both kidneys are normal in size. No renal calculi or hydronephrosis. Bilateral small renal cortical cysts. Tiny calcific focus at the upper pole of left kidney appears to be vascular calcification. Bilateral suprarenal heterogeneously enhancing lesions, measuring 28 mm on the right side and 14 mm on the left side. Unchanged. Pelvis: Limited evaluation due to streak artifacts from left hip prosthetic hardware. Urinary Bladder: Mildly distended. Prostate appears unremarkable. Peritoneal and Retroperitoneal Structures: Near complete resolution of perihepatic fluid at present study. The abdominal aorta and its branches show atherosclerotic changes with calcified plaques. Bones and Soft Tissues: Post left hip replacement status. Advanced degenerative changes in lumbar spine. Small umbilical hernia containing omental fat. IMPRESSION: 1. Post appendicectomy status. 2. Redemonstration of inflammatory changes in right iliac fossa region at the operative bed with circumferential mural thickening of a few small bowel loops. 3. Mild progressive course of the previously noted multiple dilated small bowel loops in the abdomen, showing air-fluid levels with an interval increase in caliber, measuring 46 mm at present study in contrast to 36 mm on prior study with transition point in right iliac fossa region. The findings represent progressive acute small bowel ileus - obstruction, likely due to postsurgical inflammatory changes. 4. Near complete resolution of perihepatic fluid at present study. 5. Gallbladder sludge, stable. 6. Bilateral suprarenal heterogeneously enhancing lesions, measuring 28 mm on the right side and 14 mm on the left side. Unchanged. Electronically signed by Tomas Calle 03-08-2025 01:30 AM
--- NOTE | 2025-03-08 01:36 | Emergency Department Note ---
ED Visit Note I was consulted in regards to the patient's presentation and plan of care by the Advanced Practice Provider. I engaged in a detailed/meaningful discussion with the Advanced Practice Provider in regards to this patient's workup and plan of care. I performed a substantiative portion of the medical decision making following discussion with the Advanced Practice Provider. Please see the Advanced Practice Provider's separate documentation for full details of the patient's visit. I agree with the assessment and plan of Dana Lazar PA-C. Joss Rodriguez, DO Emergency Medicine .
[2025-03-08] MEDS: MoRPHine SULFATE 2 MG/ML CARP IV STA (01:41)
[2025-03-08] MEDS: FAMOTIDINE 20MG IV PUSH 20 MG/5 ML SYR IV STA (01:41)
--- NOTE | 2025-03-08 02:22 | History & Physical Report ---
Date of Service March 08, 2025 Assessment & Plan (1) Small bowel obstruction: (2) CKD (chronic kidney disease): (3) CAD (coronary artery disease): (4) Dyslipidemia: (5) Hypertension: (6) Sleep apnea: Plan 74yo male with history of recent acute appendicitis with perforation s/p emergent laparoscopic appendectomy performed by Dr. Caballero on 02/16/25, s/p course of antibiotics for gram negative bacteremia (Parabacteroides distasonis), recent hospitalization for SBO 03/02 - 03/04/25 managed conservatively returns with 2 days of progressive lower abdominal pain, nausea, vomiting and PO intolerance. CT findings as above with distended loops of small bowel progressed from prior study (36mm --> 46mm) with transition point in the right iliac fossa region. Findings concerning for progressive ileus vs obstruction. Pain currently improved following IV morphine. Nausea resolved #Small bowel obstruction - -Admit to medical -Maintain NPO status -LR at 125mL/hr x 2L ordered -Morphine 2-4mg IV q 3 hours as needed for pain -Zofran PRN nausea -General Surgery consultation appreciated -Minimal distention at this time, nausea has resolved. No NGT presently but low threshold to place if patient develops worsening pain or nausea. #Hypertension - blood pressure presently elevated -Pain management with Morphine PRN -Continue Amlodipine 5mg po daily -Continue Metoprolol 50mg po BID -Hold Olmesartan and HCTZ for now -Continue Crestor 10mg po daily #CAD -Continue ASA 162mg po daily -Continue Metoprolol 50mg po BID #CKD - mildly elevated Cr of 1.52 compared with last value -LR at 125mL/hr x 2L -Repeat chemistry in AM #GIOVANA -No device Ppx -Lovenox 40mg SQ daily DNR/DNI per discussion with patient History of Present Illness Chief Complaint: lower abdominal pain, nausea, vomiting Primary Care Provider: Varghese Ley MD Son Sheikh is a pleasant 74yo male with history of HTN, HLP, GERD presenting with lower abdominal pain, bloating, nausea/vomiting. Patient initially presented to [facility] on 02/16/25 with complaint of severe RLQ abdominal pain and chills. Patient was found with severe sepsis secondary to acute appendicitis. He was taken to the OR by Dr. Ok Caballero for la paroscopic appendectomy - found to have gangrenous perforated appendix with alia contamination of the abdominal cavity. Patient developed gram negative bacteremia and was treated with Zosyn and Metronidazole. He ws ultimately discharged home on 02/18/25 with a LIMA drain in place. He completed a course of Cefpodoxime and Flagyl. He did complete a followup appointment with General Surgery and had his LIMA drain removed. Patient returned to the ER on 03/02/25 after presenting with worsening lower abdominal pain and nausea. He was found to have new diffuse dilation of the small bowel loops to 3.6cm with a transition point in the right iliac fossa at the site of the recent operation. Patient was managed conservatively for SBO and was ultimately discharged home in stable condition on 03/04/25. Patient states that since his discharge on 03/04/25 he has had continuous mild lower abdominal pain. On 03/05 through 03/06 day patient had some constipation. On 03/06 evening he had multiple episodes of severe diarrhea. Also developed nausea and po intolerance on 03/06 - vomited up some tea, has not been able to keep anything down since. Ongoing lower abdominal pain, now more severe. Pain was 8/10 on arrival - has improved to 6/10. Patient vomited en-route to the ER. No report of chest pain, cough, SOB. In the ER patient afebrile, HD stable, NAD ER Course: Tylenol 1gm IV Pepcid 20mg IV Morphine 2mg IV Zofran 4mg IV NSS x 500mL Allergies Allergy/AdvReac Type Severity Reaction Status Date / Time pollen extracts Allergy Intermediate ITCHY Verified 03/08/25 00:01 EYES, SNEEZING Home Medications Medication Instructions Recorded Confirmed Type ascorbic acid (vitamin C) 500 mg 500 mg PO QAM 02/21/18 03/08/25 History tablet (Vitamin C) coQ10 (ubiquinol) 100 mg capsule 100 mg PO QAM 02/21/18 03/08/25 History multivitamin 1 tab PO QAM 02/21/18 03/08/25 History nitroglycerin 400 mcg/spray 1 spray sublingual Q5M PRN chest 01/02/22 03/08/25 Rx translingual pain #4.9 grams aspirin 81 mg capsule 162 mg PO DAILY 11/02/23 03/08/25 History celecoxib 200 mg capsule (Celebrex) 200 mg PO DAILY PRN pain #30 caps 06/20/24 03/08/25 Rx vitamin E (dl, acetate) 180 mg 180 mg PO DAILY 07/24/24 03/08/25 History (400 unit) capsule rosuvastatin 10 mg tablet 10 mg PO DAILY #90 tabs 08/21/24 03/08/25 Rx amlodipine 5 mg tablet 5 mg PO DAILY #90 tabs 08/22/24 03/08/25 Rx olmesartan 40 mg tablet 40 mg PO DAILY #90 tabs 09/22/24 03/08/25 Rx fenofibrate 54 mg tablet 54 mg PO QAM 10/18/24 03/08/25 History metformin 850 mg tablet 850 mg PO QPM #90 tabs 11/15/24 03/08/25 Rx metoprolol tartrate 50 mg tablet 50 mg PO BID #180 tabs 11/15/24 03/08/25 Rx hydrochlorothiazide 12.5 mg tablet 12.5 mg PO DAILY PRN as directed 11/29/24 03/08/25 History amoxicillin 500 mg capsule 2,000 mg PO DIRECTED PRN 1 HR 03/02/25 03/08/25 History PRIOR TO DENTAL PROCEDURES ferrous sulfate 325 mg (65 mg 325 mg PO Q48H #0 tabs 03/04/25 03/08/25 Rx iron) tablet Past Med/Surg History Problem List Small bowel obstruction CKD (chronic kidney disease) (Acute) Anemia (Acute) Elevated lactic acid level (Acute) Abdominal pain, lower (Acute) S/P laparoscopic appendectomy (Acute) Status post laparoscopic appendectomy Acute perforated appendicitis Acute kidney injury Anemia Medication adverse effect Adrenal nodule Lung nodules Prostate cancer (Chronic 04/24/24) Anemia, mild 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, 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 Lumbar spinal stenosis Myalgia History of colon polyps Obesity (BMI 30.0-34.9) Skin change Chronic constipation Acid reflux (Acute) CAD (coronary artery disease) (Acute) F/U DR GIGI PERKINS Diabetes mellitus (Acute) Dyslipidemia (Acute) Generalized osteoarthritis of multiple sites (Acute) Hypertension (Acute) Legg-Perthes disease (Acute) Lower back pain (Acute) Sleep apnea (Acute) USES NO DEVICE Tubular adenoma (Acute) Medical History Elevated PSA Encounter for pre-operative examination GERD (gastroesophageal reflux disease) Allergic rhinitis History of colon polyps Osteoarthritis Borderline diabetes mellitus Hypertension Hyperlipidemia Surgical History History of tonsillectomy and adenoidectomy S/P trigger finger release R/L HAND History of total hip arthroplasty LEFT History of colonoscopy X 2 History of cardiac cath 10 years ago. [facility]. cp. --> [facility]. follows w/ dr. perkins. History of coronary artery bypass graft 3 vessels. 10 years ago. [facility] [place]. follows verónica/ dr. perkins Family History Mother Family history of diabetes mellitus Myocardial infarction Brother Family history of diabetes mellitus Denies family history of Ovarian cancer Prostate cancer Breast cancer Colorectal cancer Social History Smoking Status: Never smoker Second Hand Exposure: No; Do You Dip or Chew Tobacco: No; Hx Alcohol Use: No Hx Substance Use: No Preferred Language: Ethiopian Communication Ability: Effective Visual Impairment: Diminished Hearing Ability: Hard of Hearing Casino Accountant Required: No Beliefs That Will Affect Care: None marital status: Current Living Situation: Spouse Current Living Situation Comment: one story home with one dog current occupational status: employed 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 Feels Safe at Home: Yes Diet: regular during the past year weight has: remained stable Dental Care, Regularly: Yes Physical Activity Frequency Comment: yardwork and very active Seatbelt Use: always Sunscreen Use: No Assistive Devices: Cane Review of Systems Review of Systems: All systems reviewed & are unremarkable except as noted in HPI & below Physical Exam Physical Exam: General: patient resting comfortably, NAD, non-toxic in appearance, AA&O x 4 Skin: warm, dry, intact, no rashes or lesions HEENT: NC/AT, PERRL, EOMI, anicteric sclera, conjunctiva without injection, external ear normal to inspection and nontender, nares patent, moist mucus membranes, dentition intact, no oropharyngeal lesions, neck supple, trachea midline, no LAD, no thyromegaly, no JVD Heart: +S1/S2, regular, no m/r/g Lungs: equal air entry bilaterally, no rales/rhonchi/wheezes Abd: +BS, soft, mildly distended, tympanic to percussion, tenderness in the lower abdomen bilaterally with no rebound/guarding/peritonitis, no masses/o rganomegaly/ascites Ext: warm, 2+ pulses in UE/LE bilaterally, no clubbing/cyanosis or edema Neuro: nonfocal, patient AA&O x 4, speech intact, no facial droop, moving all extremities on command with equal strength 5/5 Results & Data Results & Data Vital Signs (Past 12 Hours) Vital Signs Temp Pulse Pulse Resp BP BP Pulse Ox 03/08/25 01:40 73 15 133/83 95 03/08/25 00:47 72 19 156/70 H 93 03/08/25 00:00 76 24 155/75 H 94 03/07/25 23:13 88 18 94 03/07/25 23:00 91 H 24 149/70 H 93 03/07/25 22:59 91 H 03/07/25 22:46 35.6 C L 110 H 18 110/65 96 O2 Del Method 03/08/25 01:40 Room Air 03/08/25 00:47 Room Air 03/08/25 00:00 03/07/25 23:13 Room Air 03/07/25 23:00 03/07/25 22:59 03/07/25 22:46 Room Air Laboratory Results Laboratory Results WBC 3.21 K/ul (4.8-10.8) L 03/07/25 23:06 RBC 3.58 M/uL (4.70-6.10) L 03/07/25 23:06 Hgb 10.5 g/dL (14.0-18.0) L 03/07/25 23:06 Hct 32.0 % (42.0-52.0) L 03/07/25 23:06 MCV 89.4 fL (80.0-100.0) 03/07/25 23:06 MCH 29.3 pg (25.0-34.0) 03/07/25 23:06 MCHC 32.8 g/dL (32.0-36.0) 03/07/25 23:06 RDW Std Deviation 47.5 fL (36.4-46.3) H 03/07/25 23:06 RDW Coeff of Elsy 14.5 % (11.5-14.5) 03/07/25 23:06 Plt Count 295 K/uL (130-400) 03/07/25 23:06 MPV 10.0 fL (9.4-12.4) 03/07/25 23:06 Immature Gran % (Auto) 0.3 % 03/07/25 23:06 Neut % (Auto) 73.3 % 03/07/25 23:06 Lymph % (Auto) 8.4 % 03/07/25 23:06 [place] % (Auto) 16.8 % 03/07/25 23:06 Eos % (Auto) 0.9 % 03/07/25 23:06 Baso % (Auto) 0.3 % 03/07/25 23:06 Neut # (Auto) 2.35 K/uL (1.40-6.50) 03/07/25 23:06 Lymph # (Auto) 0.27 K/uL (1.20-3.40) L 03/07/25 23:06 [place] # (Auto) 0.54 K/uL (0.11-0.59) 03/07/25 23:06 Eos # (Auto) 0.03 K/uL (0.00-0.50) 03/07/25 23:06 Baso # (Auto) 0.01 K/uL (0.00-0.20) 03/07/25 23:06 Immature Gran # (Auto) 0.01 K/uL (0.01-0.20) 03/07/25 23:06 PT 11.4 Seconds (9.0-12.0) 03/07/25 23:06 INR 1.1 (0.9-1.1) 03/07/25 23:06 APTT 27 Seconds (21-31) 03/07/25 23:06 PTT Ratio 1.0 03/07/25 23:06 Sodium 137 mmol/L (136-145) 03/07/25 23:06 Potassium 4.1 mmol/L (3.5-5.1) 03/07/25 23:06 Chloride 103 mmol/L (98-107) 03/07/25 23:06 Carbon Dioxide 21 mmol/L (21-32) 03/07/25 23:06 Anion Gap 13 (3-11) H 03/07/25 23:06 BUN 32 mg/dl (6-23) H 03/07/25 23:06 Creatinine 1.52 mg/dl (0.6-1.4) H 03/07/25 23:06 Est Cr Clr Drug Dosing Not Reportable 03/07/25 23:06 eGFR 47.19 03/07/25 23:06 BUN/Creatinine Ratio 21.1 (10-20) H 03/07/25 23:06 Glucose 177 mg/dl (70-99(Fasting)) H 03/07/25 23:06 Lactate 1.5 mmol/L (0.4-2.0) 03/07/25 23:06 Calcium 9.2 mg/dl (8.6-10.3) 03/07/25 23:06 Magnesium 2.1 mg/dl (1.7-2.4) 03/07/25 23:06 Total Bilirubin 0.6 mg/dl (0.2-1.0) 03/07/25 23:06 AST 14 U/L (13-39) 03/07/25 23:06 ALT 10 U/L (7-52) 03/07/25 23:06 Alkaline Phosphatase 72 U/L (34-104) 03/07/25 23:06 Troponin I High Sens 7.9 pg/ml (0-20) 03/07/25 23:06 Total Protein 7.6 gm/dl (6.0-8.3) 03/07/25 23:06 Albumin 4.0 gm/dl (3.4-5.0) 03/07/25 23:06 Globulin 3.6 gm/dl (2.5-4.0) 03/07/25 23:06 Albumin/Globulin Ratio 1.1 (0.9-2) 03/07/25 23:06 Lipase 44 U/L (11-82) 03/07/25 23:06 Procalcitonin 0.19 ng/ml (0-0.5) 03/07/25 23:06 Urine Comment 03/08/25 01:47 Impressions Abdomen/Pelvis CT 03/07/25 23:04 EXAM: CT abd pelvis IV con only CLINICAL HISTORY: Abd pain, vomiting, recent appy + SBO. TECHNIQUE: CT of the abdomen and pelvis was performed, with the following protocol: axial images, and reconstructed coronal and sagittal images. 93cc Optiray 320 Intravenous contrast was administered. One of the following dose reduction techniques was utilized for this exam: Automated exposure control, adjustment of the mA and/or kV according to patient size, and use of iterative reconstruction. COMPARISON: 03/02/2025 CT. FINDINGS: Sections of lower thorax show mild basal atelectatic changes. Abdomen: Gastrointestinal tract: Post appendicectomy status. Redemonstration of inflammatory changes in right iliac fossa region at the operative bed with circumferential mural thickening of a few small bowel loops. Minimal free fluid in right iliac fossa region. Redemonstration of multiple dilated small bowel loops in the abdomen with an interval increase in caliber, measuring 46 mm at present study in contrast to 36 mm on prior study with transition point in right iliac fossa region. The findings likely represent progressive acute small bowel ileus - obstruction, likely due to postsurgical inflammatory changes. Uncomplicated colonic diverticulosis again noted. Liver: Normal in size and density. No focal lesions, cysts, or masses were identified. Gallbladder and Biliary System: The gallbladder is distended and shows faint hyperdense sludge. Pancreas: Pancreatic parenchymal atrophy is noted. Spleen: Normal in size, shape, and density. No splenic lesions or masses were identified. Kidneys and Adrenal Glands: Mild bilateral perinephric fat stranding is noted. Both kidneys are normal in size. No renal calculi or hydronephrosis. Bilateral small renal cortical cysts. Tiny calcific focus at the upper pole of left kidney appears to be vascular calcification. Bilateral suprarenal heterogeneously enhancing lesions, measuring 28 mm on the right side and 14 mm on the left side. Unchanged. Pelvis: Limited evaluation due to streak artifacts from left hip prosthetic hardware. Urinary Bladder: Mildly distended. Prostate appears unremarkable. Peritoneal and Retroperitoneal Structures: Near complete resolution of perihepatic fluid at present study. The abdominal aorta and its branches show atherosclerotic changes with calcified plaques. Bones and Soft Tissues: Post left hip replacement status. Advanced degenerative changes in lumbar spine. Small umbilical hernia containing omental fat. IMPRESSION: 1. Post appendicectomy status. 2. Redemonstration of inflammatory changes in right iliac fossa region at the operative bed with circumferential mural thickening of a few small bowel loops. 3. Mild progressive course of the previously noted multiple dilated small bowel loops in the abdomen, showing air-fluid levels with an interval increase in caliber, measuring 46 mm at present study in contrast to 36 mm on prior study with transition point in right iliac fossa region. The findings represent progressive acute small bowel ileus - obstruction, likely due to postsurgical inflammatory changes. 4. Near complete resolution of perihepatic fluid at present study. 5. Gallbladder sludge, stable. 6. Bilateral suprarenal heterogeneously enhancing lesions, measuring 28 mm on the right side and 14 mm on the left side. Unchanged. Electronically signed by Tomas Calle 03-08-2025 01:30 AM Chest X-Ray 03/07/25 23:04 Exam(s): XR CXR 1 VIEW EXAM: XR Chest, 1 View CLINICAL HISTORY: Reason for exam: Abd pain, vomiting. TECHNIQUE: Frontal view of the chest. COMPARISON: 02/18/2025. FINDINGS: There is a poor inspiratory effort. Lungs: There is some atelectasis at the right lung base.. Pleural space: No pleural effusion is seen. No pneumothorax. Heart: Patient is status post midline sternotomy. The heart is normal in size.. Mediastinum: There is mild uncoiling of thoracic aorta.. Bones/joints: There are degenerative changes in the spine.. IMPRESSION: Poor inspiratory effort. There is some atelectasis at the right lung base. Electronically signed by: Anthony Newman MD 03/08/25 01:01 AM ECG Additional Comments: EKG with NSR at 83bpm, normal axis, VL=816, QRS=96, JYy=330, some ST flattening in the inferior/lateral leads. No ST elevations Code Status & VTE Plan VTE Prophylaxis Plan VTE Prophylaxis will be ordered: Yes PG Care Time/CCT Total # of Minutes Spent Total Time Spent with Patient: Total time spent is greater than 50% in coordination of care (as documented) at patient's floor/unit and/or counseling patient: Coding Level of Care Code 53878 INT INP/OBS CARE 3/75MIN Diagnoses Small bowel obstruction K56.609 CKD (chronic kidney disease) N18.9 CAD (coronary artery disease) I25.10 Dyslipidemia E78.5 Hypertension I10 Sleep apnea G47.30
[2025-03-08 02:28] LABS: Appearance Urine Clear (Clear); Bacteria Urine Automated None Seen (None Seen); Epithelial Cell Urine Auto 0-2 /hpf (0-2); Glucose Urine UA Negative (Negative); RBC Urine Automated 0-2 /hpf (0-2); WBC Urine Automated 0-5 /hpf (0-5)
[2025-03-08] MEDS ORDERED: MoRPHine SULFATE 2 MG/ML CARP IV PRN (02:53)
[2025-03-08] MEDS ORDERED: ONDANSETRON INJ 2 MG/ML 2 ML VIAL IV PRN (02:53)
[2025-03-08] MEDS: LACTATED RINGER'S 1,000 ML IV SCH (03:52)
[2025-03-08] MEDS: Patient's HEIGHT &/or WEIGHT Needed STA (03:56)
--- NOTE | 2025-03-08 05:51 | Surgery Consultation ---
<Statement entered by Pepito Arreola MD - 03/08/25 12:58> I independently saw and examined the patient, and I agree with the assessment and plan of care. Date of Consultation March 08, 2025 Assessment & Plan (1) Small bowel obstruction: (2) Nausea & vomiting: Plan Patient is a 74-year-old male with a past medical history of hypertension, hyperlipidemia, GERD, diabetes, CKD, and recently appendicitis who underwent a laparoscopic appendectomy on February 16, 2025, who presents to [facility] emergency department complaining of abdominal pain, nausea and vomiting for 2 days, with CT evidence of a small bowel obstruction versus ileus. Patient currently has no evidence of free air or perforation, no peritoneal signs, so no indication for emergent surgical exploration at this time. It is unfortunate that this is the second readmission for SBO versus ileus after his appendectomy, but our hope is that with conservative treatment that this should improve with time. For now, keep n.p.o. but would allow ice chips, IV fluids, IV pain medication as needed, no indication for IV antibiotics at this time, serial abdominal exams, and monitoring for return of bowel function. If the patient becomes nauseous or vomits we would recommend placement of an NG tube for gastric decompression. Remainder of his care per the primary medicine team, general surgery will continue to follow for now. History of Present Illness Reason for Consultation: abd pain, n/v, concerns for SBO vs ileus Attending Physician: Deanna Mcneal, History of Present Illness Patient is a 74-year-old male with a past medical history of hypertension, hyperlipidemia, GERD, diabetes, CKD, and recently appendicitis who underwent a laparoscopic appendectomy on February 16, 2025, who presents to [facility] emergency department complaining of abdominal pain, nausea and vomiting for 2 days. Patient localizes abdominal pain to the lower abdomen, described as crampy but also sharp and stabbing, moderate to severe in intensity, with no radiation of the pain, but worse with movement, better at rest. Patient also admits to significant nausea and several episodes of vomiting. Patient states that 2 days ago he had significant vomiting that was described as bilious, nonbloody, and states that his abdominal pain transiently improved until yesterday when his abdominal pain became worse and he again vomited and route to the emergency department. Of note, the patient's appendectomy was notable for gangrenous appendix as well as bacteremia which was treated effectively and repeat blood cultures were negative. The patient was discharged on February 18 with a LIMA drain in place and had this removed at his follow-up appointment with his surgeon, Dr. Caballero. He was doing well until March 02, 2025 when he had worsening abdominal pain and nausea and was admitted for a small bowel obstruct ion. With conservative treatment, we were able to advance his diet and he was discharged on March 04, 2025 and was tolerating a regular diet at that time. At home, he states that he has essentially only been able to tolerate liquids, primarily just water, and states that solid foods seem to make his abdominal pain worse as well as increase his nausea. He mentions that he did have some constipation several days ago, took MiraLAX and has since had some loose stools, last bowel movement was yesterday, denies flatus today. He denies any chest pain, dyspnea, shortness of breath, fevers, chills, polyuria or hematuria. He was evaluated in the emergency department and is hemodynamically stable and afebrile. His labs were relatively unremarkable with a normal white blood cell count of 3.2, and an elevated BUN and creatinine that appeared similar to on previous admissions. He had a CAT scan of the abdomen pelvis that showed findings of dilated small bowel concerning for small bowel obstruction versus ileus, so he was admitted to the hospitalist service and general surgery was consulted. Patient is currently not nauseous, so an NG tube was not placed. Allergies Allergy/AdvReac Type Severity Reaction Status Date / Time pollen extracts Allergy Intermediate ITCHY Verified 03/08/25 00:01 EYES, SNEEZING Home Medications Medication Instructions Recorded Confirmed Type ascorbic acid (vitamin C) 500 mg 500 mg PO QAM 02/21/18 03/08/25 History tablet (Vitamin C) coQ10 (ubiquinol) 100 mg capsule 100 mg PO QAM 02/21/18 03/08/25 History multivitamin 1 tab PO QAM 02/21/18 03/08/25 History nitroglycerin 400 mcg/spray 1 spray sublingual Q5M PRN chest 01/02/22 03/08/25 Rx translingual pain #4.9 grams aspirin 81 mg capsule 162 mg PO DAILY 11/02/23 03/08/25 History celecoxib 200 mg capsule (Celebrex) 200 mg PO DAILY PRN pain #30 caps 06/20/24 03/08/25 Rx vitamin E (dl, acetate) 180 mg 180 mg PO DAILY 07/24/24 03/08/25 History (400 unit) capsule rosuvastatin 10 mg tablet 10 mg PO DAILY #90 tabs 08/21/24 03/08/25 Rx amlodipine 5 mg tablet 5 mg PO DAILY #90 tabs 08/22/24 03/08/25 Rx olmesartan 40 mg tablet 40 mg PO DAILY #90 tabs 09/22/24 03/08/25 Rx fenofibrate 54 mg tablet 54 mg PO QAM 10/18/24 03/08/25 History metformin 850 mg tablet 850 mg PO QPM #90 tabs 11/15/24 03/08/25 Rx metoprolol tartrate 50 mg tablet 50 mg PO BID #180 tabs 11/15/24 03/08/25 Rx hydrochlorothiazide 12.5 mg tablet 12.5 mg PO DAILY PRN as directed 11/29/24 03/08/25 History amoxicillin 500 mg capsule 2,000 mg PO DIRECTED PRN 1 HR 03/02/25 03/08/25 History PRIOR TO DENTAL PROCEDURES ferrous sulfate 325 mg (65 mg 325 mg PO Q48H #0 tabs 03/04/25 03/08/25 Rx iron) tablet Patient History Medical History Elevated PSA Encounter for pre-operative examination GERD (gastroesophageal reflux disease) Allergic rhinitis History of colon polyps Osteoarthritis Borderline diabetes mellitus Hypertension Hyperlipidemia Surgical History History of tonsillectomy and adenoidectomy S/P trigger finger release R/L HAND History of total hip arthroplasty LEFT History of colonoscopy X 2 History of cardiac cath 10 years ago. [facility]. cp. --> [facility]. follows [facility]/ dr. ford. History of coronary artery bypass graft 3 vessels. 10 years ago. [facility] [place]. follows [facility]/ dr. ford Family History Mother Family history of diabetes mellitus Myocardial infarction Brother Family history of diabetes mellitus Denies family history of Ovarian cancer Prostate cancer Breast cancer Colorectal cancer Social History Smoking Status: Never smoker Second Hand Exposure: No; Do You Dip or Chew Tobacco: No; Hx Alcohol Use: Yes Alcohol type: wine Alcohol Intake Frequency: Monthly or Less Hx Substance Use: No Preferred Language: Egyptian Communication Ability: Effective Visual Impairment: Diminished Hearing Ability: Hard of Hearing Pool Player Required: No Beliefs That Will Affect Care: None marital status: Current Living Situation: Spouse Current Living Situation Comment: one story home with one dog current occupational status: employed 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 Feels Safe at Home: Yes Diet: regular during the past year weight has: remained stable Dental Care, Regularly: Yes Physical Activity Frequency Comment: yardwork and very active Seatbelt Use: always Sunscreen Use: No Assistive Devices: Glasses Review of Systems Review of Systems: All systems reviewed & are unremarkable except as noted in HPI & below Physical Exam Physical Exam: Gen: Awake and alert, resting comfortably in bed in NAD CV: RRR PULM: non-labored breathing Abd: Abd soft, moderately distended, moderately tender to palpation to the lower abdomen bilaterally, no tenderness to palpation to the upper abdomen bilaterally ext: no edema to bilateral lower ext, SCDs in place, non-tender, feet warm and well perfused Results & Data Vital Signs (Past 12 Hours) Vital Signs Temp Pulse Pulse Pulse Resp BP BP 03/08/25 03:11 36.6 C 77 18 153/72 H 03/08/25 02:09 72 13 156/71 H 03/08/25 01:40 73 15 133/83 03/08/25 00:47 72 19 156/70 H 03/08/25 00:00 76 24 155/75 H 03/07/25 23:13 88 18 03/07/25 23:00 91 H 24 149/70 H 03/07/25 22:59 91 H 03/07/25 22:46 35.6 C L 110 H 18 110/65 Pulse Ox O2 Del Method 03/08/25 03:11 96 Room Air 03/08/25 02:09 93 Room Air 03/08/25 01:40 95 Room Air 03/08/25 00:47 93 Room Air 03/08/25 00:00 94 03/07/25 23:13 94 Room Air 03/07/25 23:00 93 03/07/25 22:59 03/07/25 22:46 96 Room Air Diagnostic Findings CT abd/pelvis: IMPRESSION: 1. Post appendicectomy status. 2. Redemonstration of inflammatory changes in right iliac fossa region at the operative bed with circumferential mural thickening of a few small bowel loops. 3. Mild progressive course of the previously noted multiple dilated small bowel loops in the abdomen, showing air-fluid levels with an interval increase in caliber, measuring 46 mm at present study in contrast to 36 mm on prior study with transition point in right iliac fossa region. The findings represent progressive acute small bowel ileus - obstruction, likely due to postsurgical inflammatory changes. 4. Near complete resolution of perihepatic fluid at present study. 5. Gallbladder sludge, stable. 6. Bilateral suprarenal heterogeneously enhancing lesions, measuring 28 mm on the right side and 14 mm on the left side. Unchanged. PG Care Time/CCT Total # of Minutes Spent Total Time Spent with Patient: Total time spent is greater than 50% in coordination of care (as documented) at patient's floor/unit and/or counseling patient: [place] [address] IN/OBS CONSULT LVL 5,80M Patient Type Established History Problem Focused Exam Problem Focused Medical Decision Making Straight Forward Diagnoses Small bowel obstruction K56.609 Nausea & vomiting R11.2 Vomiting type: unspecified (2) Nausea & vomiting Vomiting type: unspecified Qualified Code(s): R11.2 - Nausea with vomiting, unspecified
[2025-03-08] MEDS: MoRPHine SULFATE 4 MG/ML 1 ML CARP\\VIAL IV PRN (07:27)
[2025-03-08] MEDS: ROSUVASTATIN CALCIUM 10 MG TAB PO SCH (09:00)
[2025-03-08] MEDS: ASPIRIN 81 MG ECTAB PO SCH (09:05)
[2025-03-08] MEDS: METOPROLOL TARTRATE 50 MG TAB PO SCH (09:05)
--- NOTE | 2025-03-08 09:34 | Hospitalist Progress Note ---
Date of Service March 08, 2025 Assessment & Plan (1) Small bowel obstruction: (2) CKD (chronic kidney disease): (3) CAD (coronary artery disease): (4) Dyslipidemia: (5) Hypertension: (6) Sleep apnea: Plan 74yo male with history of recent acute appendicitis with perforation s/p emergent laparoscopic appendectomy performed by Dr. Caballero on 02/16/25, s/p course of antibiotics for gram negative bacteremia (Parabacteroides distasonis), recent hospitalization for SBO 03/02 - 03/04/25 managed conservatively returns with 2 days of progressive lower abdominal pain, nausea, vomiting and PO intolerance. CT findings as above with distended loops of small bowel progressed from prior study (36mm --> 46mm) with transition point in the right iliac fossa region. Findings concerning for progressive ileus vs obstruction. Pain currently improved following IV morphine. Nausea resolved #Small bowel obstruction - -Admit to medical -Maintain NPO status -LR at 125mL/hr x 2L ordered -Morphine 2-4mg IV q 3 hours as needed for pain I-S and ambulate -Zofran PRN nausea -General Surgery consultation appreciated -Minimal distention at this time, nausea has resolved. No NGT presently but low threshold to place if patient develops worsening pain or nausea. #Hypertension - blood pressure presently elevated -Pain management with Morphine PRN -Continue Amlodipine 5mg po daily -Continue Metoprolol 50mg po BID -Hold Olmesartan and HCTZ for now -Continue Crestor 10mg po daily #CAD -Continue ASA 162mg po daily -Continue Metoprolol 50mg po BID #CKD - mildly elevated Cr of 1.52 compared with last value -LR at 125mL/hr x 2L -Repeat chemistry in AM #GIOVANA -No device Ppx -Lovenox 40mg SQ daily DNR/DNI per discussion with patient Admission and Anticipated Discharge Date Admission Date: March 08, 2025 Subjective Overall pain seems to have improved somewhat. He tells me distention is a little improved. No nausea vomiting fevers chills chest pain or shortness of breath. Passing gas and having very tiny bowel movements is ordered and encouraged ambulation Review of Systems Review of Systems: Negative except as in HPI Physical Exam Physical Exam: General: patient resting comfortably, NAD, non-toxic in appearance, AA&O x 4 Skin: warm, dry, intact, no rashes or lesions HEENT: NC/AT, PERRL, EOMI, anicteric sclera, conjunctiva without injection, external ear normal to inspection and nontender, nares patent, moist mucus membr anes, dentition intact, no oropharyngeal lesions, neck supple, trachea midline, no LAD, no thyromegaly, no JVD Heart: +S1/S2, regular, no m/r/g Lungs: equal air entry bilaterally, no rales/rhonchi/wheezes Abd: +BS, soft, mildly distended, tympanic to percussion, tenderness in the lower abdomen bilaterally with no rebound/guarding/peritonitis, no masses/organomegaly/ascites Ext: warm, 2+ pulses in UE/LE bilaterally, no clubbing/cyanosis or edema Neuro: nonfocal, patient AA&O x 4, speech intact, no facial droop, moving all extremities on command with equal strength 5/5 Results & Data Results & Data Vital Signs (Past 12 Hours) Vital Signs Temp Pulse Pulse Pulse Resp BP BP 03/08/25 08:00 37.0 C 79 20 173/73 H 03/08/25 03:11 36.6 C 77 18 153/72 H 03/08/25 02:09 72 13 156/71 H 03/08/25 01:40 73 15 133/83 03/08/25 00:47 72 19 156/70 H 03/08/25 00:00 76 24 155/75 H 03/07/25 23:13 88 18 03/07/25 23:00 91 H 24 149/70 H 03/07/25 22:59 91 H 03/07/25 22:46 35.6 C L 110 H 18 110/65 Pulse Ox O2 Del Method 03/08/25 08:00 93 Room Air 03/08/25 03:11 96 Room Air 03/08/25 02:09 93 Room Air 03/08/25 01:40 95 Room Air 03/08/25 00:47 93 Room Air 03/08/25 00:00 94 03/07/25 23:13 94 Room Air 03/07/25 23:00 93 03/07/25 22:59 03/07/25 22:46 96 Room Air PG Care Time/CCT Total # of Minutes Spent Total Time Spent with Patient: Total time spent is greater than 50% in coordination of care (as documented) at patient's floor/unit and/or counseling patient: Coding Level of Care Code 55508 SUB INP/OBS CARE MIN Diagnoses Small bowel obstruction K56.609 CKD (chronic kidney disease) N18.9 CAD (coronary artery disease) I25.10 Dyslipidemia E78.5 Hypertension I10 Sleep apnea G47.30
[2025-03-08] MEDS ORDERED: hydrALAZINE 10 MG TAB PO PRN (09:37)
--- NOTE | 2025-03-08 12:59 | Electrocardiogram Report ---
Test Reason : Blood Pressure : */* mmHG Vent. Rate : 83 BPM Atrial Rate : 83 BPM P-R Int : 136 ms QRS Dur : 96 ms QT Int : 376 ms P-R-T Axes : 3 36 144 degrees QTcB Int : 441 ms Normal sinus rhythm Abnormal ECG When compared with ECG of 16-Feb-2025 09:20, Premature ventricular complexes are no longer Present T wave inversion now evident in Inferior leads Confirmed by Varghese Hicks ([id number]) on 03/08/2025 12:58:58 PM Referred By: REFERRED SELF Confirmed By: Varghese Hicks
[2025-03-08] MEDS: ENOXAPARIN INJ 40 MG/0.4 ML SYR SQ SCH (16:05)
[2025-03-09 07:17] LABS: Hematocrit (blood only) 28.7 % (42.0-52.0); Hemoglobin 9.4 g/dL (14.0-18.0); Mean Corpuscular Hemoglobin 29.6 pg (25.0-34.0); Mean Corpuscular Volume 90.3 fL (80.0-100.0); Platelet Count 257 K/uL (130-400); RDW Standard Deviation 48.1 fL (36.4-46.3); Red Blood Count 3.18 M/uL (4.70-6.10); White Blood Count 3.00 K/ul (4.8-10.8)
[2025-03-09 07:37] LABS: Alanine Aminotransferase 8.0 U/L (7-52); Albumin Globulin Ratio 1.1 (0.9-2); Albumin Level 3.5 gm/dl (3.4-5.0); Alkaline Phosphatase 65.0 U/L (34-104); Anion Gap 9.0 (3-11); Bilirubin,Total 0.4 mg/dl (0.2-1.0); Blood Urea Nitrogen 26.0 mg/dl (6-23); Carbon Dioxide 25.0 mmol/L (21-32); Chloride 106.0 mmol/L (98-107); Creatinine Clr Calc Pharmacy 73.5 ml/min; Globulin 3.3 gm/dl (2.5-4.0); Glucose 106.0 mg/dl (70-99(Fasting)); Potassium 4.0 mmol/L (3.5-5.1); Sodium 140.0 mmol/L (136-145); Total Protein 6.8 gm/dl (6.0-8.3)
[2025-03-09 08:25] LABS: Calcium 9.0 mg/dl (8.6-10.3)
--- NOTE | 2025-03-09 09:23 | Hospitalist Progress Note ---
Date of Service March 09, 2025 Assessment & Plan (1) Small bowel obstruction: (2) CKD (chronic kidney disease): (3) CAD (coronary artery disease): (4) Dyslipidemia: (5) Hypertension: (6) Sleep apnea: Plan 74yo male with history of recent acute appendicitis with perforation s/p emergent laparoscopic appendectomy performed by Dr. Caballero on 02/16/25, s/p course of antibiotics for gram negative bacteremia (Parabacteroides distasonis), recent hospitalization for SBO 03/02 - 03/04/25 managed conservatively returns with 2 days of progressive lower abdominal pain, nausea, vomiting and PO intolerance. CT findings as above with distended loops of small bowel progressed from prior study (36mm --> 46mm) with transition point in the right iliac fossa region. Findings concerning for progressive ileus vs obstruction. Pain currently improved following IV morphine. Nausea resolved #Small bowel obstruction - -Admit to medical -Maintain NPO status -LR at 125mL/hr x 2L ordered -Morphine 2-4mg IV q 3 hours as needed for pain I-S and ambulate -Zofran PRN nausea -General Surgery consultation appreciated -Minimal distention at this time, nausea has resolved. No NGT presently but low threshold to place if patient develops worsening pain or nausea. Diet advance per surgery #Hypertension - blood pressure presently elevated -Pain management with Morphine PRN -Continue Amlodipine 5mg po daily -Continue Metoprolol 50mg po BID -Hold Olmesartan and HCTZ for now -Continue Crestor 10mg po daily #CAD -Continue ASA 162mg po daily -Continue Metoprolol 50mg po BID #CKD - mildly elevated Cr of 1.52 compared with last value -LR at 125mL/hr x 2L -Repeat chemistry in AM #GIOVANA -No device Ppx -Lovenox 40mg SQ daily DNR/DNI per discussion with patient Admission and Anticipated Discharge Date Admission Date: March 08, 2025 Subjective Doing very well no abdominal pain nausea vomiting fevers or chills. Having a lot of loose stools. Abdominal distention maybe a little improved. Tells me he is very hungry and leaving later today if not fed. Discussed with RN at bedside advancing to clear liquid diet pending surgery input Review of Systems Review of Systems: Negative except as in HPI Physical Exam Physical Exam: General: patient resting comfortably, NAD, non-toxic in appearance, AA&O x 4 Skin: warm, dry, intact, no rashes or lesions HEENT: NC/AT, PERRL, EOMI, anicteric sclera, conjunctiva without injection, external ear normal to inspection and nontender, nares patent, moist mucus membranes, dentition intact, no oropharyngeal lesions, neck supple, trachea midline, no LAD, no thyromegaly, no JVD Heart: +S1/S2, regular, no m/r/g Lungs: equal air entry bilaterally, no rales/rhonchi/wheezes Abd: +BS, soft, mildly distended, tympanic to percussion, tenderness in the lower abdomen bilaterally with no rebound/guarding/peritonitis, no masses/organomegaly/ascites Ext: warm, 2+ pulses in UE/LE bilaterally, no clubbing/cyanosis or edema Neuro: nonfocal, patient AA&O x 4, speech intact, no facial droop, moving all extremities on command with equal strength 5/5 Results & Data Results & Data Vital Signs (Past 12 Hours) Vital Signs Temp Pulse Resp BP Pulse Ox O2 Del Method 03/09/25 07:49 36.6 C 73 16 158/72 H 97 Room Air 03/08/25 22:41 37.0 C 69 18 160/76 H 93 Room Air PG Care Time/CCT Total # of Minutes Spent Total Time Spent with Patient: Total time spent is greater than 50% in coordination of care (as documented) at patient's floor/unit and/or counseling patient: Coding Level of Care Code 76342 SUB INP/OBS CARE 2/35MIN Diagnoses Small bowel obstruction K56.609 CKD (chronic kidney disease) N18.9 CAD (coronary artery disease) I25.10 Dyslipidemia E78.5 Hypertension I10 Sleep apnea G47.30
[2025-03-09 12:04] VITALS: BP 153/77; RESP 20; TEMP 98.1; O2SAT 94
--- NOTE | 2025-03-09 12:50 | Discharge Summary ---
Discharge Summary Date of Service March 09, 2025 Principal Dx & Hospital Course #1 = Principal Diagnosis (1) Small bowel obstruction: (2) CKD (chronic kidney disease): (3) CAD (coronary artery disease): (4) Dyslipidemia: (5) Hypertension: (6) Sleep apnea: Plan 74yo male with history of recent acute appendicitis with perforation s/p emergent laparoscopic appendectomy performed by Dr. Caballero on 02/16/25, s/p course of antibiotics for gram negative bacteremia (Parabacteroides distasonis), recent hospitalization for SBO 03/02 - 03/04/25 managed conservatively returns with 2 days of progressive lower abdominal pain, nausea, vomiting and PO intolerance. CT findings as above with distended loops of small bowel progressed from prior study (36mm --> 46mm) with transition point in the right iliac fossa region. Findings concerning for progressive ileus vs obstruction. Pain currently improved following IV morphine. Nausea resolved #Small bowel obstruction - -Admit to medical -Maintain NPO status -LR at 125mL/hr x 2L ordered -Morphine 2-4mg IV q 3 hours as needed for pain I-S and ambulate -Zofran PRN nausea -General Surgery consultation appreciated -Minimal distention at this time, nausea has resolved. No NGT presently but low threshold to place if patient develops worsening pain or nausea. Diet advance per surgery #Hypertension - blood pressure presently elevated -Pain management with Morphine PRN -Continue Amlodipine 5mg po daily -Continue Metoprolol 50mg po BID -Hold Olmesartan and HCTZ for now -Continue Crestor 10mg po daily #CAD -Continue ASA 162mg po daily -Continue Metoprolol 50mg po BID #CKD - mildly elevated Cr of 1.52 compared with last value -LR at 125mL/hr x 2L -Repeat chemistry in AM #GIOVANA -No device Ppx -Lovenox 40mg SQ daily DNR/DNI per discussion with patient Notes For Next Care Provider Subjective Surgeon texted me via secure chat after discussion with patient he tells me patient is adamant about going home today or will leave Either way (he told me the same). Surgeon is okay with sending patient home on a light diet. Patient understands importance of close follow-up and strict return precautions Admission HPI Per Admitting Provider Son Sheikh is a pleasant 74yo male with history of HTN, HLP, GERD presenting with lower abdominal pain, bloating, nausea/vomiting. Patient initially presented to [facility] on 02/16/25 with complaint of severe RLQ abdominal pain and chills. Patient was found with severe sepsis secondary to acute appendicitis. He was taken to the OR by Dr. Ok Caballero for laparoscopic appendectomy - found to have gangrenous perforated appendix with alia contamination of the abdominal cavity. Patient developed gram negative bacteremia and was treated with Zosyn and Metronidazole. He ws ultimately discharged home on 02/18/25 with a LIMA drain in place. He completed a course of Cefpodoxime and Flagyl. He did complete a followup appointment with General Surgery and had his LIMA drain removed. Patient returned to the ER on 03/02/25 after presenting with worsening lower abdominal pain and nausea. He was found to have new diffuse dilation of the small bowel loops to 3.6cm with a transition point in the right iliac fossa at the site of the recent operation. Patient was managed conservatively for SBO and was ultimately discharged home in stable condition on 03/04/25. Patient states that since his discharge on 03/04/25 he has had continuous mild lower abdominal pain. On 03/05 through 03/06 day patient had some constipation. On 03/06 evening he had multiple episodes of severe diarrhea. Also developed nausea and po intolerance on 03/06 - vomited up some tea, has not been able to keep anything down since. Ongoing lower abdominal pain, now more severe. Pain was 8/10 on arrival - has improved to 6/10. Patient vomited en-route to the ER. No report of chest pain, cough, SOB. In the ER patient afebrile, HD stable, NAD ER Course: Tylenol 1gm IV Pepcid 20mg IV Morphine 2mg IV Zofran 4mg IV NSS x 500mL Discharge Exam General: patient resting comfortably, NAD, non-toxic in appearance, AA&O x 4 Skin: warm, dry, intact, no rashes or lesions HEENT: NC/AT, PERRL, EOMI, anicteric sclera, conjunctiva without injection, external ear normal to inspection and nontender, nares patent, moist mucus membranes, dentition intact, no oropharyngeal lesions, neck supple, trachea midline, no LAD, no thyromegaly, no JVD Heart: +S1/S2, regular, no m/r/g Lungs: equal air entry bilaterally, no rales/rhonchi/wheezes Abd: +BS, soft, mildly distended, tympanic to percussion, tenderness in the lower abdomen bilaterally with no rebound/guarding/peritonitis, no masses/organomegaly/ascites Ext: warm, 2+ pulses in UE/LE bilaterally, no clubbing/cyanosis or edema Neuro: nonfocal, patient AA&O x 4, speech intact, no facial droop, moving all extremities on command with equal strength 5/5 Discharge Plan Discharge Items Patient Disposition: Home - Self-Care Reason For Visit: ABDOMINAL PAIN, SBO Discharge Diagnosis: SBO Condition on Discharge: Fair Activity: Resume your previous activity Non-emergency contact: Primary Care Provider, Surgeon and Specialist Call non-emergency contact if: you have any medication questions, your symptoms worsen, your pain is not controlled, your pain is worsening and you have a fever Follow-up/Referrals: Varghese Ley MD [Primary Care Provider] - Diet: Low Fat and Low Sodium (2gm) Diet Comment: LIGHT DIET PER SURGEON. FOLLOW UP CLOSELY Addtl Attending Provider Instructions: Follow-up with primary care doctor And surgeon within 1 week or as instructed As we discussed come back right away if develop worsening abdominal distention, pain, nausea vomiting, constipation, not passing gas, fevers chills, feeling unwell etc. Pending Studies at Discharge: No Stand-Alone Forms: My [employer] Smoking Cessation Medications and DC Order Prescriptions: Continued hydrochlorothiazide 12.5 mg tablet 12.5 mg PO DAILY PRN (Reason: as directed) vitamin E (dl, acetate) 180 mg (400 unit) capsule 180 mg PO DAILY fenofibrate 54 mg tablet 54 mg PO QAM nitroglycerin 400 mcg/spray spray,non-aerosol 1 spray sublingual Q5M PRN (Reason: chest pain) Qty: 4.9 3RF Rx Instructions: do not exceed 3 doses per episode celecoxib [Celebrex] 200 mg capsule 200 mg PO DAILY PRN (Reason: pain) Qty: 30 2RF Hold Instructions: hold for now - your doctor can resume when kidney function returns to baseline rosuvastatin 10 mg tablet 10 mg PO DAILY Qty: 90 3RF metoprolol tartrate 50 mg tablet 50 mg PO BID Qty: 180 3RF metformin 850 mg tablet 850 mg PO QPM Qty: 90 3RF aspirin 81 mg capsule 162 mg PO DAILY amlodipine 5 mg tablet 5 mg PO DAILY Qty: 90 3RF olmesartan 40 mg tablet 40 mg PO DAILY Qty: 90 3RF Hold Instructions: Resume on 02/26/25. multivitamin Tablet 1 tab PO QAM ascorbic acid (vitamin C) [Vitamin C] 500 mg Tablet 500 mg PO QAM coQ10 (ubiquinol) 100 mg Capsule 100 mg PO QAM amoxicillin 500 mg capsule 2,000 mg PO DIRECTED PRN (Reason: 1 HR PRIOR TO DENTAL PROCEDURES) Rx Instructions: TAKE 4 TABLETS 1 HOUR BEFORE DENTAL APPOINTMENT ferrous sulfate 325 mg (65 mg iron) tablet 325 mg PO Q48H Qty: 0 0RF Rx Instructions: PER PT "STOPPED FOR NOW". Discharge Orders: Discharge Order (Routine); Ordered 03/09/25 Ordered By: Tomy Benavides Admission Data Admit Date/Time: 03/08/25 01:54 Attending Provider: Tomy Benavides Admit Provider: Deanna Mcneal Primary Care Provider: Varghese Ley Other Providers: Pepito Arreola; Deanna Mcneal Hospital Stay Data Consultations 03/08/25 01:54 Consult General Surgery Routine 03/08/25 02:13 ED Decision to Admit Stat Diagnostic Imagining Performed 03/07/25 23:04 CT abd pelvis IV con only Stat Pending Results Patient Have Any Pending Studies at Discharge: No Discharge Instructions Given to Patient (Per Discharging Provider) Follow-up with primary care doctor And surgeon within 1 week or as instructed As we discussed come back right away if develop worsening abdominal distention, pain, nausea vomiting, constipation, not passing gas, fevers chills, feeling unwell etc. Total Time Total Time Spent Total Time Spent (In Minutes): 35 Coding Level of Care Code 58703 INP/OBS DISCH >30 MIN Diagnoses Small bowel obstruction K56.609 CKD (chronic kidney disease) N18.9 CAD (coronary artery disease) I25.10 Dyslipidemia E78.5 Hypertension I10 Sleep apnea G47.30
[2025-03-09 13:04] VITALS: PULSE 72
--- NOTE | 2025-03-09 13:05 | Surgery Progress Note ---
Date of Service March 09, 2025 Assessment & Plan (1) Small bowel obstruction: Plan: clinically much improved ideally would stay and advance diet over next 24 hours,however he adamantly wants to go home. the bm's are reassuring. if he goes home should be on a liquidy /low fiber diet. if any worsening pain or vomitting he will need to return to the ER. (2) CKD (chronic kidney disease): Admission and Anticipated Discharge Date Admission Date: March 08, 2025 Subjective pt seen. 2 large bm's earlier today. konstantin liquids. no pain. no n/v. really wants to go home Physical Exam Constitutional: WD/WN, vitals as above no acute distress and not ill appearing Eyes: PERRL, conjunctivae normal, anicteric sclerae EOM intact bilaterally ENMT: external ear and nose normal, oropharynx normal Ears: no hearing impairment Neck: trachea midline, no thyromegaly Respiratory: normal respiratory effort; no respiratory distress and does not use accessory muscles Cardiovascular: Rate/Rhythm: regular rate and regular rhythm Gastrointestinal (Abdomen): normal bowel sounds, soft, nontender, no hepatosplenomegaly Skin: no rashes, warm and dry Psychiatric: Orientation: alert, oriented x 3 and cooperative Results & Data Vital Signs (Past 12 Hours) Vital Signs Temp Pulse Resp BP Pulse Ox O2 Del Method 03/09/25 12:02 36.7 C 70 20 153/77 H 94 Room Air 03/09/25 07:49 36.6 C 73 16 158/72 H 97 Room Air PG Care Time/CCT Total # of Minutes Spent Total Time Spent with Patient: Total time spent is greater than 50% in coordination of care (as documented) at patient's floor/unit and/or counseling patient: Coding Level of Care Code 64708 SUB INP/OBS CARE 04/29MIN Diagnoses Small bowel obstruction K56.609 CKD (chronic kidney disease) N18.9
--- NOTE | 2025-03-12 15:49 | Coding Query ---
CODING QUERY To promote full compliance with coding requirements relating to patient care, provider participation is requested in all cases of veterinary attendant uncertainty. Please assist us with the question(s) below: Coding Question(s): Pt adm with intestinal obstruction. Creatine 1.5 with HP mild increase compared to last value. Please document, if known or suspected the Chronic Kidney Disease Stage. Thanks for your help! Kevin Maciel [employer] [facility] Physician's Response(s): unknown Principal Diagnosis: "that condition established after study, to be chiefly responsible for occasioning the admission of the patient to the hospital for care." Co-Existing Principal Diagnosis: "when two or more diagnoses equally meet the criteria for principal diagnosis as determined by the circumstances of admission, diagnostic work up, and/or therapy provided, and the Alphabetic Index, Tabular List, or another coding guideline does not provide sequencing direction, any one of the diagnoses may be sequenced first." "When the physician has documented what appears to be a current diagnosis in the body of the record, but has not included the diagnosis in the final diagnostic statement, the physician should be asked whether the diagnosis should be added." (Source Coding Clinic 2 QTR90. p3-4) ANDREIA
--- NOTE | 2025-03-12 15:53 | Coding Query ---
Principal Diagnosis: "that condition established after study, to be chiefly responsible for occasioning the admission of the patient to the hospital for care CODING QUERY To promote full compliance with coding requirements relating to patient care, provider participation is requested in all cases of wrapper opener uncertainty. Please assist us with the question(s) below: Coding Question(s): Pt admitted with intestinal obstruction. S/P 02/16 appendectomy for perforation. Pt presenting a second time for obstruction. On 03/02 presented again with intestinal obstruction. Pl was treated conservatively on the 03/02 admission. Please clarify, if known or suspected a cause/effect relationship between this admission for Intestinal obstruction and the prior Surgery. Thanks for your help. Kevin Maciel [facility] Physician's Response(s): uninown Principal Diagnosis: "that condition established after study, to be chiefly responsible for occasioning the admission of the patient to the hospital for care." Co-Existing Principal Diagnosis: "when two or more diagnoses equally meet the criteria for principal diagnosis as determined by the circumstances of admission, diagnostic work up, and/or therapy provided, and the Alphabetic Index, Tabular List, or another coding guideline does not provide sequencing direction, any one of the diagnoses may be sequenced first." "When the physician has documented what appears to be a current diagnosis in the body of the record, but has not included the diagnosis in the final diagnostic statement, the physician should be asked whether the diagnosis should be added." (Source Coding Clinic 2 QTR90. p3-4) ANDREIA
== END 2025-03-09 14:10 | disposition home or self-care (01) ==
LOC: ED 22:43 → SUATTDRO 03-08 01:54 → 2N 03-08 01:54 → INTOOBSV 03-08 01:54 → 2N 03-08 02:19